=== PATIENT | male | born 1970 | race Caucasian/White ===

== ENCOUNTER 2017-03-19 23:54 | Inpatient (IN) | payer OTHER ==
--- NOTE | 2017-03-20 00:21 | C.PDOC ---
History Of Present Illness 46 y/o M c no PMHx p/w subjective fever, palpitations, cough x 2 days. Went to clinic today and started on Tamiflu and augmentin but states palpitations continued. Took no acetaminophen or ibuprofen today. Currently feels palpitations are much improved, still feels subjectively febrile. Denies sputum production, dyspnea, abdominal pain, diarrhea, dysuria. Time Seen by Provider: 03/20/17 00:17 Chief Complaint (Nursing): Palpitations History Per: Patient History/Exam Limitations: no limitations Onset/Duration Of Symptoms: Days (2) Current Symptoms Are (Timing): Still Present Severity: Mild Recent travel outside of the [place]: No Additional History Per: Patient Past Medical History Reviewed: Historical Data, Nursing Documentation, Vital Signs Vital Signs: Last Vital Signs Temp 101.9 F H 03/20/17 01:24 Pulse 96 H 03/20/17 01:24 Resp 20 03/20/17 01:24 BP 105/58 L 03/20/17 01:24 Pulse Ox 98 03/20/17 01:24 Family History: States: Unknown Family Hx - Social History Hx Tobacco Use: No Hx Alcohol Use: No Hx Substance Use: No - Immunization History Hx Tetanus Toxoid Vaccination: No Hx Influenza Vaccination: No Hx Pneumococcal Vaccination: No Review Of Systems Except As Marked, All Systems Reviewed And Found Negative. Constitutional: Positive for: Fever (Subjective) Cardiovascular: Positive for: Palpitations. Negative for: Chest Pain Respiratory: Positive for: Cough. Negative for: Shortness of Breath Physical Exam - Physical Exam Additional Physical Exam Comments: Constitutional: No acute distress. Appears anxious. Head: Normocephalic. Atraumatic. Eyes: PERRL. ENT: Moist mucous membranes. Neck: Supple. Cardiovascular: Mild tachycardia. Radial pulse 2+ bilaterally. Chest: No tenderness. Respiratory: Clear to auscultation bilaterally. GI: Soft. Nontender. Nondistended. Back: No CVA tenderness. Musculoskeletal: No tenderness or swelling of extremities. Skin: No rash. Neurologic: Alert, no focal deficit. ED Course And Treatment - Laboratory Results Result Diagrams: 03/20/17 00:43 03/20/17 00:43 ECG: Interpreted By Me, Viewed By Me ECG Rhythm: Sinus Rhythm (108) ECG Interpretation: Normal Interpretation Of ECG: No ST/T wave changes O2 Sat by Pulse Oximetry: 99 (RA) Pulse Ox Interpretation: Normal Medical Decision Making Medical Decision Making: Impression: 46 y/o male c/o subjective fever, palpitations, cough x 2 days. Plans: * EKG * Blood work up * CXR * Tylenol * Toradol * UA EKG NSR 108 bpm, no ST/T wave changes. CXR shows L lobe infiltrate. Started on Cefepime. IVF administered. Vital signs improved with treatment. Accepted for admission by hospitalist service. Disposition Discussed With Dr.: Vinicio Vallejo Doctor Will See Patient In The: ED - Disposition Referrals: Mercedes Heller APN [Primary Care Provider] - Disposition: HOSPITALIZED Disposition Time: 02:27 Condition: GUARDED Forms: [employer] ([place]) - POA Core Measure Indicators: Code Sepsis, Pneumonia - Clinical Impression Clinical Impression: Pneumonia, Sepsis - Scribe Statement The provider has reviewed the documentation as recorded by the Scribe Arvind daniels All medical record entries made by the Scribe were at my direction and personally dictated by me. I have reviewed the chart and agree that the record accurately reflects my personal performance of the history, physical exam, medical decision making, and the department course for this patient. I have also personally directed, reviewed, and agree with the discharge instructions and disposition.
[2017-03-20] MEDS ORDERED: Sodium Chloride 0.9% 1,000 ML IV STA (00:30)
[2017-03-20 00:43] LABS: VENOUS BLOOD GAS BASE EXCESS 2.8 mmol/L (0.0-2.0); VENOUS BLOOD GAS PCO2 47 mmHg (40-60); VENOUS BLOOD PH 7.39 (7.32-7.43)
[2017-03-20] MEDS ORDERED: Moxifloxacin IV 400mg/250ml NS 400 MG/250 ML BAG IVPB ONE (00:50)
[2017-03-20 00:52] LABS: BASO # 0.1 K/uL (0.0-0.2); BASO % 0.6 % (0.0-2.0); EOS % 0.1 % (0.0-4.0); HEMATOCRIT 40.5 % (35.0-51.0); LYMPH # 0.7 K/uL (1.0-4.3); LYMPH % 7.3 % (20.0-40.0); MEAN CELL VOLUME 84.6 fL (80.0-94.0); MEAN CORPUSCULAR HEMOGLOBIN 28.9 pg (27.0-31.0); MEAN CORPUSCULAR HGB CONC 34.1 g/dL (33.0-37.0); MEAN PLATELET VOLUME 9.1 fL (7.2-11.7); MONO # 0.9 K/uL (0.0-0.8); MONO % 9.3 % (0.0-10.0); NRBC % 0.2 % (0.0-2.0); PLATELET COUNT 205 K/uL (130-400); RED CELL DISTRIBUTION WIDTH 13.7 % (11.5-14.5); WHITE BLOOD COUNT 10.1 K/uL (4.8-10.8)
[2017-03-20 00:53] LABS: RBC URINE 4 /hpf (0-3); URINE BILIRUBIN NEGATIVE (NEGATIVE); URINE BLOOD NEGATIVE (NEGATIVE); URINE COLOR Amber (YELLOW); URINE GLUCOSE (UA) NORMAL (Normal); URINE KETONE NEGATIVE (NEGATIVE); URINE LEUKOCYTE ESTERASE NEG Leu/uL (Negative); URINE PROTEIN 2+ mg/dL (NEGATIVE); WBC URINE 1 /hpf (0-5)
[2017-03-20] MEDS ORDERED: Cefepime IV 2 gm in Dextrose 2 GM/100 ML BAG IVPB SCH (01:00)
[2017-03-20] MEDS ORDERED: Sodium Chloride 0.9% 3,000 ML ONE (01:01)
[2017-03-20 01:11] LABS: CHLORIDE 98 mmol/L (98-107)
[2017-03-20 01:12] LABS: POTASSIUM 4.1 mmol/L (3.6-5.2); SODIUM 139 mmol/L (132-148)
[2017-03-20 01:14] LABS: AST/SGOT 44 U/L (17-59); BILIRUBIN,TOTAL 1.2 mg/dL (0.2-1.3); CARBON DIOXIDE 26 mmol/L (22-30); GFR AFRICAN-AMERICAN > 60; TOTAL PROTEIN 7.7 g/dL (6.3-8.3)
[2017-03-20 01:15] LABS: ALKALINE PHOSPHATASE 148 U/L (38-126); ALT/SGPT 74 U/L (21-72); BLOOD UREA NITROGEN 9 mg/dL (9-20); CALCIUM 9.1 mg/dl (8.6-10.4); GLUCOSE,RANDOM 127 mg/dL (75-110)
[2017-03-20 01:52] LABS: NEUTROPHIL 87 % (50-75); REACTIVE LYMPHOCYTES 1 % (0-0); TOTAL CELLS COUNTED 100
[2017-03-20] MEDS ORDERED: Cefepime IV 2 gm in Dextrose 2 GM/100 ML BAG IVPB ONE (02:15)
[2017-03-20 03:04] LABS: VENOUS BLOOD GAS BASE EXCESS -4.1 mmol/L (0.0-2.0); VENOUS BLOOD GAS PCO2 33 mmHg (40-60); VENOUS BLOOD PH 7.39 (7.32-7.43)
[2017-03-20] MEDS ORDERED: Azithromycin 500 MG in Sodium Chloride 0.9% 250 ML IVPB SCH (04:30)
[2017-03-20] MEDS: Albuterol-Ipratrop 3 mg / 0.5 (3 ml) UD INH SCH ×3 (07:40→20:05)
--- NOTE | 2017-03-20 09:38 | CP.PCM.PN ---
<Lisa Shipman - Last Filed: 03/20/17 16:23> Subjective - Date & Time of Evaluation Date of Evaluation: 03/20/17 Time of Evaluation: 09:38 - Subjective Subjective: Pt seen and examined at bedside. Pt c/o fevers, non productive cough, improving palpitations, headache exacerbated by cough, and RUQ pain. Patient says he has had an US for RUQ pain in the past and has had US but does not know the results. Pt says this pain is exacerbated by greasy foods. Pt denies n/v/d/c/ chills/diaphoresis. Objective - Vital Signs/Intake and Output Vital Signs (last 24 hours): Temp Pulse Resp BP Pulse Ox 98.7 F 71 17 120/74 99 03/20/17 07:20 03/20/17 07:20 03/20/17 07:20 03/20/17 07:20 03/20/17 07:20 Intake and Output: 03/20/17 03/20/17 06:59 18:59 Intake Total 750 Balance 750 - Medications Medications: Current Medications Acetaminophen (Tylenol 325mg Tab) 650 mg PO Q6 PRN PRN Reason: Fever >100.4 F Albuterol/Ipratropium (Duoneb 3 Mg/0.5 Mg (3 Ml) Ud) [address] Enoxaparin Sodium (Lovenox) 30 mg SC DAILY [facility] Famotidine (Pepcid) 20 mg PO BID [facility] Azithromycin 500 mg/ Sodium (Chloride) 250 mls @ 167 mls/hr IVPB Q24H AVE Last Admin: 03/20/17 05:03 Dose: 167 mls/hr Ceftriaxone Sodium 1 gm/ (Sodium Chloride) 100 mls @ 100 mls/hr IVPB DAILY [facility] Pneumococcal Polyvalent Vaccine (Pneumovax 23 Vaccine) 0.5 ml IM .ONCE ONE Stop: 03/23/17 10:01 Saccharomyces Boulardii (Florastor) 250 mg PO BID [facility] - Constitutional Appears: Non-toxic, No Acute Distress - Head Exam Head Exam: NORMAL INSPECTION - Eye Exam Eye Exam: EOMI - ENT Exam ENT Exam: Mucous Membranes Moist - Respiratory Exam Respiratory Exam: NORMAL BREATHING PATTERN. absent: Accessory Muscle Use, Respiratory Distress Additional comments: course breath sounds heard louder on the left lower lung chambers - Cardiovascular Exam Cardiovascular Exam: REGULAR RHYTHM, +S1, +S2 - GI/Abdominal Exam GI & Abdominal Exam: Distended, Guarding (voluntary ), Soft, Tenderness (RUQ), Normal Bowel Sounds Additional comments: Positive bourgeois sign - Extremities Exam Extremities Exam: Normal Inspection - Neurological Exam Neurological Exam: Alert, Awake - Psychiatric Exam Psychiatric exam: Normal Affect, Normal Mood - Skin Skin Exam: Dry, Intact, Warm Assessment and Plan - Assessment and Plan (Free Text) Assessment: Pneumonia * Febrile, Tmax: 105.3 (03/20) * Lactate 2.2, repeat lactate: 0.7 (03/20) * Leukocytosis absent (WBC: 8.6 on 03/20) * Procalcitonin: 0.23 * Medication: * Tylenol 650mg PO Q6H PRN * Duonebs Q6 PRN * Discontinued Azithromycin 500mg IV 24H and Rocephin 1gm IV daily on (03/20) * Zosyn 3.375 g IVPB Q6H * Flagyl 500 mg/100 ml IVPB Q8H * CXR: left upper lobe pneumonia (03/20) * F/U CT chest, abdomen, and pelvis * F/U ID consult (Dr. Thomas) - recs appreciated RUQ pain * Zosyn and flagyl as described above * NPO * F/U Surgery Consult (Dr. Castaneda) - recs appreciated * RUQ US: fatty liver infiltration, no gallstones, negative sonographic bourgeois sign Sepsis * Resolving * Possibly secondary to pneumonia * Febrile, Tmax: Febrile, Tmax: 105.3 * HR: 110, Max: 112 * Lactate 2.2, repeat lactate: 0.7 * NS @ 100mls/hr * F/U Blood, throat, and urine culture Prophylactic measure * SCDS * Lovenox 30mg SC daily * Pepcid 20mg PO BID * Florastor 250mg PO BID <Kandy Gonzalez V - Last Filed: 03/21/17 05:03> Objective - Vital Signs/Intake and Output Vital Signs (last 24 hours): Temp Pulse Resp BP Pulse Ox 99.2 F 85 20 106/69 97 03/21/17 04:05 03/21/17 04:05 03/21/17 04:05 03/21/17 04:05 03/21/17 04:05 Intake and Output: 03/20/17 03/21/17 18:59 06:59 Intake Total 1400 800 Output Total 800 Balance 600 800 - Medications Medications: Current Medications Acetaminophen (Tylenol 325mg Tab) 650 mg PO Q6 PRN PRN Reason: Fever >100.4 F Last Admin: 03/21/17 02:40 Dose: 650 mg Albuterol/Ipratropium (Duoneb 3 Mg/0.5 Mg (3 Ml) Ud) 3 ml INH RQ6 [facility] Last Admin: 03/21/17 01:02 Dose: Not Given Enoxaparin Sodium (Lovenox) 30 mg SC DAILY [facility] Last Admin: 03/20/17 10:08 Dose: 30 mg Famotidine (Pepcid) 20 mg PO BID [facility] Last Admin: 03/20/17 18:06 Dose: 20 mg Sodium Chloride (Sodium Chloride 0.9%) 1,000 mls @ 100 mls/hr IV .Q10H [facility] Last Admin: 03/20/17 21:06 Dose: 100 mls/hr Piperacillin Sod/Tazobactam (Sod 3.375 gm/ Sodium Chloride) 100 mls @ 200 mls/ hr IVPB Q6H [facility] Last Admin: 03/21/17 02:42 Dose: 200 mls/hr Metronidazole (Flagyl) 500 mg in 100 mls @ 100 mls/hr IVPB Q8H [facility] Last Admin: 03/20/17 21:47 Dose: 100 mls/hr Pneumococcal Polyvalent Vaccine (Pneumovax 23 Vaccine) 0.5 ml IM .ONCE ONE Stop: 03/23/17 10:01 Saccharomyces Boulardii (Florastor) 250 mg PO BID [facility] Last Admin: 03/20/17 18:06 Dose: 250 mg - Labs Labs: 03/20/17 13:51 03/20/17 13:51 PT 13.6 SECONDS (9.7-12.2) H 03/20/17 15:16 INR 1.2 03/20/17 15:16 APTT 33 SECONDS (21-34) 03/20/17 15:16 Attending/Attestation - Attestation I have personally seen and examined this patient.: Yes I have fully participated in the care of the patient.: Yes I have reviewed all pertinent clinical information, including history, physical exam and plan: Yes Notes (Text): This is late computer entry for 8/30/17. Patient seen, examined and case discussed with day-time resident. Patient seen during morning rounds. Patient reporting fever, chills, and right upper quadrant pain travelling to back of shoulder. Patient also reporting cough. Patient prior to admission had completed abdominal US but does not know the results and reports he has a follow-up appointment with a doctor for this upcoming Saturday. General: awake, alert, in acute distress Heart: s1, S2, tachycardia Lungs: + decreased breathe sounds Abdomen: soft nondistended + Bourgeois's sign, tender over right upper quadrant, no rigidity but guarding Extremities: no cyanosis, no clubbing, no edema Assessment/Plan 1) Sepsis * Criteria: Febrile Tmax: 105.3, tachycardia, source: pneumonia and/or possible cholecystitis given positive Bourgeois sign; Lactate acid: 2.2-->0.7 * NS @ 100mls/hr * F/U Blood, throat, and urine cultures * D/C Rocephin and Azithromycin-->started Zosyn and Flagyl * Infectious Disease (Dr. Thomas) on consult * General surgery (Dr. Castaneda) on consult: reason: RUQ pain; positive Bourgeois's sign * Patient ordered for Abdominal US; and CT Chest/Abdomen/Pelvis * RUQ US (03/20/17): fatty liver infiltration, no gallstones, negative sonographic bourgeois sign * CT Chest/Abdomen/Pelvis: extensive left upper lobe consolidation. Recommend follow-up to complete resolution, small left greater than right pleural effusions. Hypoattenuation of the liver compatible with hepatic steatosis. Moderate constipation, small bowel wall thickening may be related to enteritis. Numerous calcified right hilar lymph nodes. Subcarinal soft tissue measuring 4.3 X3.1cm, presumably adenopathy 2) Pneumonia * Criteria: Febrile Tmax: 105.3, tachycardia, source: pneumonia and/or possible cholecystitis given positive Bourgeois sign; Lactate acid: 2.2-->0.7 * NS @ 100mls/hr * Procalcitonin: 0.23 * IV Abx: Zosyn 3.375 g IVPB Q6H (active since 03/20/17) and Flagyl 500mg IV Q 8 hours (03/20/17) * CXR: left upper lobe pneumonia (03/20) * F/U ID consult (Dr. Thomas) - recs appreciated * Patient ordered for CT Chest to characterize * CT Chest/Abdomen/Pelvis: extensive left upper lobe consolidation. Recommend follow-up to complete resolution, small left greater than right pleural effusions. Hypoattenuation of the liver compatible with hepatic steatosis. Moderate constipation, small bowel wall thickening may be related to enteritis. Numerous calcified right hilar lymph nodes. Subcarinal soft tissue measuring 4.3 X3.1cm, presumably adenopathy * Will order for urine Legionella, mycoplasma Igm, Strep pneumoniae 3) RUQ pain * On my exam, patient has positive Bourgeois's sign-->ordered for abdominal US/CT Chest/Abdomen/Pelvis and general surgery consult given +bourgeois's sign * NPO * F/U Surgery Consult (Dr. Castaneda) - recs appreciated * RUQ US: fatty liver infiltration, no gallstones, negative sonographic bourgeois sign 4) Prophylactic measure * SCDS * Lovenox 30mg SC daily * Pepcid 20mg PO BID * Florastor 250mg PO BID
--- NOTE | 2017-03-20 10:04 | CP.PCM.HP ---
Addendum entered and electronically signed by Kristin Ennis 03/21/17 06:46: Missing information from initial HPI: PMHx: Denies PSHx: Back lipoma excision FHx: Denies Medication: None Allergies: NKDA Social history: Lives with friends. Denies tobacco, ETOH and illicit drug use. Original Note: <ChandlerMariikenny Sanchez - Last Filed: 03/20/17 10:31> History of Present Illness - History of Present Illness History of Present Illness: CC: Myalgia, fever and Palpitation HPI: Patient is a 46 year old male with no past medical history who presents to the ED with complaints of myalgia, subject fever, non-productive cough, palpitations, B/L eye lid pain and neck pain that started on Saturday. Patient states that he went to the clinic and was given Tamiflu and Augumentin, however , patient's symptoms continued with worsening palpitation symptoms. Patient admits to fever, chills, diaphoresis, improving palpitation (currently), frontal headache, nasal congestion, dizziness, nausea and vomiting (x2) but denies chest pain, SOB, abdominal pain, diarrhea and sick contact. Present on Admission - Present on Admission Any Indicators Present on Admission: No Review of Systems - Constitutional Constitutional: Chills, Excessive Sweating, Fever, Headache, Malaise, Night Sweats, Weakness - EENT Eyes: absent: Change in Vision Ears: Dizziness Nose/Mouth/Throat: Nasal Congestion - Cardiovascular Cardiovascular: Diaphoresis, Palpitations. absent: Chest Pain, Chest Pain at Rest, Chest Pain with Activity, Dyspnea, Dyspnea on Exertion, Leg Edema - Respiratory Respiratory: Cough, Chest Congestion. absent: Dyspnea - Gastrointestinal Gastrointestinal: Nausea, Vomiting. absent: Abdominal Pain, Change in Bowel Habits, Constipation, Diarrhea - Genitourinary Genitourinary: absent: Dysuria, Pyuria, Urinary Frequency - Musculoskeletal Musculoskeletal: Arthralgias, Myalgias. absent: Numbness, Tingling - Neurological Neurological: Dizziness, Headaches. absent: Confusion, Focal Weakness, Tingling , Weakness - Endocrine Endocrine: Excessive Sweating, Palpitations. absent: Fatigue, Flushing Past Patient History - Infectious Disease Hx of Infectious Diseases: None - Past Medical History & Family History Past Medical History?: No - Past Social History Smoking Status: Never Smoked - MUSCULOSKELETAL/RHEUMATOLOGICAL Hx Falls: No - PSYCHIATRIC Hx Substance Use: No - SURGICAL HISTORY Hx Surgeries: No - ANESTHESIA Hx Anesthesia: No Meds Allergies/Adverse Reactions: Allergies Allergy/AdvReac Type Severity Reaction Status Date / Time No Known Allergies Allergy Verified 03/19/17 23:57 Physical Exam - Constitutional Appears: No Acute Distress - Head Exam Head Exam: ATRAUMATIC, NORMAL INSPECTION - Eye Exam Eye Exam: EOMI, Normal appearance - Respiratory Exam Respiratory Exam: Clear to Auscultation Bilateral, NORMAL BREATHING PATTERN - Cardiovascular Exam Cardiovascular Exam: REGULAR RHYTHM, +S2 - GI/Abdominal Exam GI & Abdominal Exam: Normal Bowel Sounds, Soft - Extremities Exam Extremities exam: Positive for: normal inspection. Negative for: calf tenderness, pedal edema, tenderness - Neurological Exam Neurological exam: Alert, Oriented x3 - Psychiatric Exam Psychiatric exam: Normal Affect, Normal Mood - Skin Skin Exam: Dry, Normal Color, Warm Results - Vital Signs Recent Vital Signs: Last Vital Signs Temp 98.7 F 03/20/17 07:20 Pulse 71 03/20/17 07:20 Resp 17 03/20/17 07:20 BP 120/74 03/20/17 07:20 Pulse Ox 99 03/20/17 07:20 - Labs Result Diagrams: 03/20/17 00:43 03/20/17 00:43 Labs: Laboratory Results - last 24 hr 03/20/17 03/20/17 03:00 08:48 pO2 50 VBG pH 7.39 VBG pCO2 33 L VBG HCO3 21.4 VBG Total CO2 21.0 L VBG O2 Sat (Calc) 91.6 H VBG Base Excess -4.1 L VBG Potassium 3.4 L Sodium 138.0 Chloride 110.0 H Glucose 116 H Lactate 0.7 Venous Blood Potassium 3.4 L Ur L.pneumophila Ag Negative Assessment & Plan (1) Pneumonia Assessment and Plan: Febrile, Tmax: 105.3 Lactate 2.2, repeat lactate: 0.7 Leukocytosis absent F/U procalcitonin Medication: - Tylenol 650mg PO Q6H PRN - Azithromycin 500mg IV 24H - Rocephin 1gm IV daily - Duonebs Q6 PRN Imaging: - Awaiting official chest x-ray report Status: Acute (5) Sepsis Assessment and Plan: Resolving Possibly secondary to pneumonia Febrile, Tmax: Febrile, Tmax: 105.3 HR: 110, Max: 112 Lactate 2.2, repeat lactate: 0.7 Medications: - Azithromycin 500mg IV 24H - Rocephin 1gm IV daily -NS @ 100mls/hr Status: Acute (6) Prophylactic measure Assessment and Plan: SCDS Lovenox 30mg SC daily Pepcid 20mg PO BID Florastor 250mg PO BID Status: Acute <Vinicio Vallejo P - Last Filed: 03/30/17 19:33> Results - Vital Signs Recent Vital Signs: Last Vital Signs Temp 98.1 F 03/30/17 07:33 Pulse 69 03/30/17 08:24 Resp 20 03/30/17 07:33 BP 104/64 03/30/17 07:33 Pulse Ox 99 03/30/17 07:33 - Labs Result Diagrams: 03/30/17 06:18 03/30/17 06:18 Labs: Laboratory Results - last 24 hr 03/30/17 03/30/17 06:18 06:18 WBC 11.0 H RBC 4.09 L Hgb 11.9 L Hct 34.8 L MCV 85.2 MCH 29.1 MCHC 34.1 RDW 13.8 Plt Count 526 H MPV 8.0 Neut % (Auto) 68.5 Lymph % (Auto) 16.4 L [place] % (Auto) 11.1 H Eos % (Auto) 2.8 Baso % (Auto) 1.2 Neut # 7.5 H Lymph # 1.8 [place] # 1.2 H Eos # 0.3 Baso # 0.1 Sodium 139 Potassium 4.1 Chloride 100 Carbon Dioxide 26 Anion Gap 18 BUN 9 Creatinine 0.7 L Est GFR ( Amer) > 60 Est GFR (Non-Af Amer) > 60 Random Glucose 98 Calcium 9.1 Total Bilirubin 0.7 AST 27 ALT 60 Alkaline Phosphatase 120 Total Protein 7.1 Albumin 3.2 L Globulin 3.9 Albumin/Globulin Ratio 0.8 L Attending/Attestation - Attestation I have personally seen and examined this patient.: Yes I have fully participated in the care of the patient.: Yes I have reviewed all pertinent clinical information: Yes
[2017-03-20] MEDS: Enoxaparin 30 mg Syringe SC SCH (10:08)
[2017-03-20] MEDS: Saccharomyces Boulardi 250 mg Cap PO SCH ×2 (10:09→18:06)
[2017-03-20] MEDS: Sodium Chloride 0.9% 1,000 ML IV SCH ×2 (10:54→21:06)
--- NOTE | 2017-03-20 11:25 | RAD ---
HISTORY: fever, palpitations COMPARISON: No prior. TECHNIQUE: Chest PA and lateral FINDINGS: LUNGS: There is ill-defined airspace disease in the left upper lobe. No focal consolidation in the right lung. There is bibasilar atelectasis. PLEURA: No significant pleural effusion identified. No pneumothorax apparent. CARDIOVASCULAR: Normal. OSSEOUS STRUCTURES: No significant abnormalities. VISUALIZED UPPER ABDOMEN: Normal. OTHER FINDINGS: None. IMPRESSION: Left upper lobe pneumonia. Follow-up after medical management is advised to ensure complete resolution.
--- NOTE | 2017-03-20 13:50 | CP.PCM.CON ---
History of Present Illness - History of Present Illness History of Present Illness: CONSULT SURGERY NOTE FOR DR. IVERSON 46M presents with fevers and chills that started on Saturday. Patient states he as also been having abdominal pain that has been on and off for years in the right upper quadrant. He states the pain usually comes after eating. He denies nausea, vomiting or change in bowel movement. PMH: Asthma PSH: lipoma removal Social: denies tobacco, alcohol, illicit drugs Allergies: NKDA Past Patient History - Infectious Disease Hx of Infectious Diseases: None - Past Medical History & Family History Past Medical History?: No - Past Social History Smoking Status: Never Smoked - MUSCULOSKELETAL/RHEUMATOLOGICAL Hx Falls: No - PSYCHIATRIC Hx Substance Use: No - SURGICAL HISTORY Hx Surgeries: No - ANESTHESIA Hx Anesthesia: No Meds Allergies/Adverse Reactions: Allergies Allergy/AdvReac Type Severity Reaction Status Date / Time No Known Allergies Allergy Verified 03/19/17 23:57 - Medications Medications: Current Medications Acetaminophen (Tylenol 325mg Tab) 650 mg PO Q6 PRN PRN Reason: Fever >100.4 F Last Admin: 03/20/17 12:11 Dose: 650 mg Albuterol/Ipratropium (Duoneb 3 Mg/0.5 Mg (3 Ml) Ud) [address] Last Admin: 03/20/17 13:30 Dose: 3 ml Enoxaparin Sodium (Lovenox) 30 mg SC DAILY [facility] Last Admin: 03/20/17 10:08 Dose: 30 mg Famotidine (Pepcid) [address] Last Admin: 03/20/17 10:08 Dose: 20 mg Sodium Chloride (Sodium Chloride 0.9%) 1,000 mls @ 100 mls/hr IV .Q10H [facility] Last Admin: 03/20/17 10:54 Dose: 100 mls/hr Piperacillin Sod/Tazobactam (Sod 3.375 gm/ Sodium Chloride) 100 mls @ 200 mls/ hr IVPB Q6H AVE Metronidazole (Flagyl) 500 mg in 100 mls @ 100 mls/hr IVPB Q8H [facility] Iohexol (Omnipaque 240 (50 Ml)) 50 ml PO ONCE ONE Stop: 03/20/17 14:01 Pneumococcal Polyvalent Vaccine (Pneumovax 23 Vaccine) 0.5 ml IM .ONCE ONE Stop: 03/23/17 10:01 Saccharomyces Caryli (Florastor) [address] Last Admin: 03/20/17 10:09 Dose: 250 mg Physical Exam - Constitutional Appears: Non-toxic, No Acute Distress Additional comments: Uncomfortable 2/2 pain - Head Exam Head Exam: ATRAUMATIC - ENT Exam ENT Exam: Mucous Membranes Moist - Respiratory Exam Respiratory Exam: Clear to Auscultation Bilateral, NORMAL BREATHING PATTERN - Cardiovascular Exam Cardiovascular Exam: REGULAR RHYTHM, +S1, +S2 - GI/Abdominal Exam GI & Abdominal Exam: Soft, Tenderness (RUQ moderate pain). absent: Distended, Firm, Guarding, Rebound, Rigid Additional comments: positive goel's sign - Extremities Exam Extremities exam: Negative for: pedal edema, tenderness - Neurological Exam Neurological exam: Alert, Oriented x3 - Psychiatric Exam Psychiatric exam: Anxious - Skin Skin Exam: Dry, Intact, Normal Color, Warm Results - Vital Signs Recent Vital Signs: Last Vital Signs Temp 102.8 F H 03/20/17 12:12 Pulse 80 03/20/17 13:33 Resp 17 03/20/17 07:20 BP 127/73 03/20/17 12:12 Pulse Ox 99 03/20/17 07:20 - Labs Result Diagrams: 03/20/17 00:43 03/20/17 00:43 Labs: Laboratory Results - last 24 hr 03/20/17 03/20/17 03/20/17 03:00 07:52 08:48 pO2 50 VBG pH 7.39 VBG pCO2 33 L VBG HCO3 21.4 VBG Total CO2 21.0 L VBG O2 Sat (Calc) 91.6 H VBG Base Excess -4.1 L VBG Potassium 3.4 L Sodium 138.0 Chloride 110.0 H Glucose 116 H Lactate 0.7 Procalcitonin 0.23 Venous Blood Potassium 3.4 L Ur L.pneumophila Ag Negative Assessment & Plan - Assessment and Plan (Free Text) Assessment: 46M with RUQ tenderness and positive murphys sign, with fevers 102 Plan: - NPO, pain control - Abx, IVF - STAT Ultrasound/CT - Reevaluate for OR Further recs discuss with Dr. Leonel Garcia, PGY2
[2017-03-20] MEDS ORDERED: Iohexol 240 (50 ml) PO ONE (14:00)
[2017-03-20 14:03] LABS: BASO # 0.1 K/uL (0.0-0.2); BASO % 0.9 % (0.0-2.0); EOS % 0.1 % (0.0-4.0); HEMATOCRIT 37.1 % (35.0-51.0); LYMPH # 0.9 K/uL (1.0-4.3); LYMPH % 10.6 % (20.0-40.0); MEAN CELL VOLUME 85.3 fL (80.0-94.0); MEAN CORPUSCULAR HEMOGLOBIN 28.6 pg (27.0-31.0); MEAN CORPUSCULAR HGB CONC 33.6 g/dL (33.0-37.0); MEAN PLATELET VOLUME 9.2 fL (7.2-11.7); MONO # 0.9 K/uL (0.0-0.8); MONO % 9.9 % (0.0-10.0); RED CELL DISTRIBUTION WIDTH 13.5 % (11.5-14.5); WHITE BLOOD COUNT 8.6 K/uL (4.8-10.8)
[2017-03-20 14:06] LABS: CHLORIDE 106 mmol/L (98-107); POTASSIUM 3.8 mmol/L (3.6-5.2); SODIUM 139 mmol/L (132-148)
[2017-03-20 14:08] LABS: ALB/GLOB RATIO 0.9 (1.0-2.1); ALKALINE PHOSPHATASE 110 U/L (38-126); AST/SGOT 40 U/L (17-59); BILIRUBIN,TOTAL 0.6 mg/dL (0.2-1.3); CARBON DIOXIDE 21 mmol/L (22-30); GFR AFRICAN-AMERICAN > 60; TOTAL PROTEIN 6.4 g/dL (6.3-8.3)
[2017-03-20 14:09] LABS: ALT/SGPT 64 U/L (21-72); BLOOD UREA NITROGEN 9 mg/dL (9-20); GLUCOSE,RANDOM 115 mg/dL (75-110)
[2017-03-20] MEDS: Piperacillin/Tazobact 3.375 GM in Sodium Chloride 100 ML IVPB SCH ×2 (14:24→20:00)
[2017-03-20] MEDS: metroNIDAZOLE IV 500 mg/100 ml 500 MG/100 ML BAG IVPB SCH ×2 (14:29→21:47)
--- NOTE | 2017-03-20 14:30 | US ---
HISTORY: RUQ pain, Pos bourgeois sign COMPARISON: None. TECHNIQUE: Sonographic evaluation of the abdomen. FINDINGS: LIVER: Measures 14.0 cm. Diffusely increased echogenicity of the liver parenchyma. Consistent with fatty infiltration. Smooth contour. No mass. No biliary dilatation. GALLBLADDER: Unremarkable. No gallstones. No mural thickening. No pericholecystic fluid. Negative sonographic Bourgeois sign. COMMON BILE DUCT: Measures 4 mm. No stones. No dilatation. PANCREAS: Unremarkable as visualized. No mass. No ductal dilatation. RIGHT KIDNEY: Measures 12.2cm. Normal echogenicity. No calculus, mass, or hydronephrosis. LEFT KIDNEY: Measures 10.2cm. Normal echogenicity. No calculus, mass, or hydronephrosis. SPLEEN: Normal in size and contour. No mass. AORTA: No aneurysmal dilatation. IVC: Unremarkable. OTHER FINDINGS: None. IMPRESSION: No evidence of cholelithiasis or cholecystitis. Fatty infiltration of the liver.
[2017-03-20] MEDS ORDERED: Iodixanol 320 MG/ML 100 ML BOTTLE IV ONE ×2 (15:16→17:17)
[2017-03-20 15:39] LABS: INR 1.2
--- NOTE | 2017-03-20 18:10 | CP.PCM.CON ---
History of Present Illness - History of Present Illness History of Present Illness: 46M presents with fevers and chills that started on Saturday. Patient states he as also been having abdominal pain that has been on and off for years in the right upper quadrant. + infiltrates on cxr + high grade fever + abd pain RUQ cultures pending PMH: Asthma PSH: lipoma removal Social: denies tobacco, alcohol, illicit drugs Allergies: NKDA Review of Systems - Constitutional Constitutional: As Per HPI - EENT Eyes: absent: As Per HPI, Blind Spots, Blurred Vision, Change in Vision, Decreased Night Vision, Diplopia, Discharge, Dry Eye, Exophthalmos, Floaters, Irritation, Itchy Eyes, Loss of Peripheral Vision, Pain, Photophobia, Requires Corrective Lenses, Sees Flashes, Spots in Vision, Tunnel Vision, Other Visual Disturbances, Loss of Vision, Other Ears: absent: As Per HPI, Decreased Hearing, Ear Discharge, Ear Pain, Tinnitus, Abnormal Hearing, Disequilibrium, Dizziness, Other Nose/Mouth/Throat: absent: As Per HPI, Epistaxis, Nasal Congestion, Nasal Discharge, Nasal Obstruction, Nasal Trauma, Nose Pain, Post Nasal Drip, Sinus Pain, Sinus Pressure, Bleeding Gums, Change in Voice, Dental Pain, Dry Mouth, Dysphagia, Halitosis, Hoarsness, Lip Swelling, Mouth Lesions, Mouth Pain, Odynophagia, Sore Throat, Throat Swelling, Tongue Swelling, Facial Pain, Neck Pain, Neck Mass, Other - Cardiovascular Cardiovascular: absent: As Per HPI, Acrocyanosis, Chest Pain, Chest Pain at Rest , Chest Pain with Activity, Claudication, Diaphoresis, Dyspnea, Dyspnea on Exertion, Edema, Irregular Heart Rhythm, Pain Radiating to Arm/Neck/Jaw, Leg Edema, Leg Ulcers, Lightheadedness, Orthopnea, Palpitations, Paroxysmal Nocturnal Dyspnea, Pedal Edema, Radiating Pain, Rapid Heart Rate, Slow Heart Rate, Syncope, Other - Respiratory Respiratory: absent: As Per HPI, Cough, Dyspnea, Hemoptysis, Dyspnea on Exertion , Wheezing, Snoring, Stridor, Pain on Inspiration, Chest Congestion, Excessive Mucous Production, Change in Mucous Color, Pain with Coughing, Other - Gastrointestinal Gastrointestinal: As Per HPI - Musculoskeletal Musculoskeletal: absent: As Per HPI, Abnormal Gait, Arthralgias, Atrophy, Back Pain, Deformity, Joint Swelling, Limited Range of Motion, Loss of Height, Muscle Cramps, Muscle Weakness, Myalgias, Neck Pain, Numbness, Radiating Pain into Limb, Stiffness, Tingling, Other - Integumentary Integumentary: absent: As Per HPI, Acne, Alopecia, Bleeding Lesions, Change in Hair, Change in Nails, Change in Pigmentation, Changing Lesions, Dry Skin, Erythema, Furuncle, Hirsutism, Lesions, New Lesions, Non-Healing Lesions, Photosensitivity, Pruritus, Rash, Skin Pain, Skin Ulcer, Sores, Striae, Swelling , Unusual Bruising, Wounds, Jaundice, Other Past Patient History - Infectious Disease Hx of Infectious Diseases: None - Past Medical History & Family History Past Medical History?: No - Past Social History Smoking Status: Never Smoked - MUSCULOSKELETAL/RHEUMATOLOGICAL Hx Falls: No - PSYCHIATRIC Hx Substance Use: No - SURGICAL HISTORY Hx Surgeries: No - ANESTHESIA Hx Anesthesia: No Meds Allergies/Adverse Reactions: Allergies Allergy/AdvReac Type Severity Reaction Status Date / Time No Known Allergies Allergy Verified 03/19/17 23:57 - Medications Medications: Current Medications Acetaminophen (Tylenol 325mg Tab) 650 mg PO Q6 PRN PRN Reason: Fever >100.4 F Last Admin: 03/20/17 18:07 Dose: 650 mg Albuterol/Ipratropium (Duoneb 3 Mg/0.5 Mg (3 Ml) Ud) 3 ml INH RQ6 [facility] Last Admin: 03/20/17 13:30 Dose: 3 ml Enoxaparin Sodium (Lovenox) 30 mg SC DAILY [facility] Last Admin: 03/20/17 10:08 Dose: 30 mg Famotidine (Pepcid) 20 mg PO BID [facility] Last Admin: 03/20/17 18:06 Dose: 20 mg Sodium Chloride (Sodium Chloride 0.9%) 1,000 mls @ 100 mls/hr IV .Q10H [facility] Last Admin: 03/20/17 10:54 Dose: 100 mls/hr Piperacillin Sod/Tazobactam (Sod 3.375 gm/ Sodium Chloride) 100 mls @ 200 mls/ hr IVPB Q6H [facility] Last Admin: 03/20/17 14:24 Dose: 200 mls/hr Metronidazole (Flagyl) 500 mg in 100 mls @ 100 mls/hr IVPB Q8H [facility] Last Admin: 03/20/17 14:29 Dose: 100 mls/hr Pneumococcal Polyvalent Vaccine (Pneumovax 23 Vaccine) 0.5 ml IM .ONCE ONE Stop: 03/23/17 10:01 Saccharomyces Boulardii (Florastor) [address] Last Admin: 03/20/17 18:06 Dose: 250 mg Physical Exam - Constitutional Appears: Non-toxic, Chronically Ill - Head Exam Head Exam: NORMOCEPHALIC - Eye Exam Eye Exam: PERRL. absent: Scleral icterus - ENT Exam ENT Exam: Mucous Membranes Dry, Normal External Ear Exam - Respiratory Exam Respiratory Exam: Decreased Breath Sounds, Rales, Rhonchi - Cardiovascular Exam Cardiovascular Exam: REGULAR RHYTHM, +S1, +S2 - GI/Abdominal Exam GI & Abdominal Exam: Diminished Bowel Sounds, Distended, Guarding, Soft, Tenderness. absent: Rebound, Rigid - Rectal Exam Rectal Exam: Deferred - Exam Exam: NORMAL INSPECTION - Extremities Exam Extremities exam: Negative for: calf tenderness, pedal edema - Back Exam Back exam: absent: CVA tenderness (L), CVA tenderness (R) - Neurological Exam Neurological exam: Alert, CN II-XII Intact, Oriented x3, Reflexes Normal - Psychiatric Exam Psychiatric exam: Normal Mood - Skin Skin Exam: Dry Results - Vital Signs Recent Vital Signs: Last Vital Signs Temp 98.8 F 03/20/17 15:15 Pulse 85 03/20/17 17:14 Resp 20 03/20/17 15:15 BP 118/70 03/20/17 15:15 Pulse Ox 97 03/20/17 15:15 - Labs Result Diagrams: 03/20/17 13:51 03/20/17 13:51 Labs: Laboratory Results - last 24 hr 03/20/17 03/20/17 03/20/17 03:00 07:52 08:48 WBC RBC Hgb Hct MCV MCH MCHC RDW Plt Count MPV Neut % (Auto) Lymph % (Auto) Owen % (Auto) Eos % (Auto) Baso % (Auto) Neut # Lymph # Owen # Eos # Baso # PT INR APTT pO2 50 VBG pH 7.39 VBG pCO2 33 L VBG HCO3 21.4 VBG Total CO2 21.0 L VBG O2 Sat (Calc) 91.6 H VBG Base Excess -4.1 L VBG Potassium 3.4 L Sodium 138.0 Chloride 110.0 H Glucose 116 H Lactate 0.7 Potassium Carbon Dioxide Anion Gap BUN Creatinine Est GFR ( Amer) Est GFR (Non-Af Amer) Random Glucose Calcium Total Bilirubin AST ALT Alkaline Phosphatase Total Protein Albumin Globulin Albumin/Globulin Ratio Procalcitonin 0.23 Venous Blood Potassium 3.4 L Ur L.pneumophila Ag Negative 03/20/17 03/20/17 03/20/17 13:51 13:51 15:16 WBC 8.6 RBC 4.35 L Hgb 12.4 Hct 37.1 MCV 85.3 MCH 28.6 MCHC 33.6 RDW 13.5 Plt Count 193 MPV 9.2 Neut % (Auto) 78.5 H Lymph % (Auto) 10.6 L Owen % (Auto) 9.9 Eos % (Auto) 0.1 Baso % (Auto) 0.9 Neut # 6.8 Lymph # 0.9 L Owen # 0.9 H Eos # 0.0 Baso # 0.1 PT 13.6 H INR 1.2 APTT 33 pO2 VBG pH VBG pCO2 VBG HCO3 VBG Total CO2 VBG O2 Sat (Calc) VBG Base Excess VBG Potassium Sodium 139 Chloride 106 Glucose Lactate Potassium 3.8 Carbon Dioxide 21 L Anion Gap 16 BUN 9 Creatinine 0.6 L Est GFR ( Amer) > 60 Est GFR (Non-Af Amer) > 60 Random Glucose 115 H Calcium 8.0 L Total Bilirubin 0.6 AST 40 ALT 64 Alkaline Phosphatase 110 Total Protein 6.4 Albumin 2.9 L D Globulin 3.4 Albumin/Globulin Ratio 0.9 L Procalcitonin Venous Blood Potassium Ur L.pneumophila Ag Assessment & Plan (1) Pneumonia Status: Acute (2) Sepsis Status: Acute - Assessment and Plan (Free Text) Assessment: pneumonia r/o sepsis r/o cholecystitis IV antibiotics await cultures and CT results
--- NOTE | 2017-03-20 18:21 | CT ---
CT chest, abdomen, and pelvis with IV contrast Indication: Pneumonia vs effusion, RUQ pain Technique: Contiguous axial images of the chest, abdomen, and pelvis. Coronal and Sagittal reformats generated and reviewed. This CT exam was performed using 1 or more of the following dose reduction techniques: Automated exposure control, adjustment of the MAA and/or kV according to patient size, and/or use of iterative reconstruction technique. Oral contrast was administered. 100 cc Visipaque 320 Radiation dose: Total exam DLP = 1199.71 MGy-cm. Comparison: Chest x-ray performed 03/20/17 Findings: Visualized portions of the inferior thyroid gland appear unremarkable. The mediastinal and hilar vascular structures appear within normal limits. The heart appears within normal limits of size. Numerous calcified right hilar lymph nodes. Subcarinal soft tissue measuring maximally 4.3 x 3.1 cm, presumably adenopathy (series 601, image 73). Extensive left upper lobe consolidation. Small upaz-aynclgq-kguv-right pleural effusions. No pneumothorax. Right middle and lower lobe calcified granulomas. Hypoattenuation of the liver compatible with hepatic steatosis. The spleen, kidneys, pancreas, adrenal glands, and gallbladder appear unremarkable. The stomach is nondistended. The bowel loops appear within normal limits of caliber without evidence of intestinal obstruction. Moderate constipation. Small bowel wall thickening may be related to enteritis. There is no definite free air. The appendix appears within normal limits of caliber. No secondary signs of acute appendicitis. The prostate gland measures approximately 4.4 x 4.9 cm. The urinary bladder appears unremarkable. No acute osseous abnormality is detected. Impression: Numerous calcified right hilar lymph nodes. Subcarinal soft tissue measuring maximally 4.3 x 3.1 cm, presumably adenopathy. Extensive left upper lobe consolidation. Recommend follow-up to complete resolution. Small juqw-mvbyqfs-ttfg-right pleural effusions. Hypoattenuation of the liver compatible with hepatic steatosis. Moderate constipation. Small bowel wall thickening may be related to enteritis.
--- NOTE | 2017-03-20 20:21 | CARD ---
APPROVED REPORT EKG Measurement Heart [id number] <Conclusion> Sinus tachycardia Mild lateral ST depression, consider ischemia Abnormal ECG
[2017-03-21] MEDS: Albuterol-Ipratrop 3 mg / 0.5 (3 ml) UD INH SCH ×4 (01:02→19:22)
[2017-03-21] MEDS: Piperacillin/Tazobact 3.375 GM in Sodium Chloride 100 ML IVPB SCH ×4 (02:42→20:26)
[2017-03-21] MEDS: Sodium Chloride 0.9% 1,000 ML IV SCH ×3 (05:31→20:23)
[2017-03-21] MEDS: metroNIDAZOLE IV 500 mg/100 ml 500 MG/100 ML BAG IVPB SCH ×2 (05:31→14:28)
[2017-03-21 06:20] LABS: BASO # 0.1 K/uL (0.0-0.2); BASO % 0.9 % (0.0-2.0); EOS % 0.3 % (0.0-4.0); LYMPH # 1.1 K/uL (1.0-4.3); LYMPH % 14.6 % (20.0-40.0); MEAN CELL VOLUME 84.1 fL (80.0-94.0); MEAN CORPUSCULAR HEMOGLOBIN 28.5 pg (27.0-31.0); MEAN CORPUSCULAR HGB CONC 33.9 g/dL (33.0-37.0); MEAN PLATELET VOLUME 8.9 fL (7.2-11.7); MONO % 12.9 % (0.0-10.0); RED CELL DISTRIBUTION WIDTH 13.8 % (11.5-14.5); WHITE BLOOD COUNT 7.7 K/uL (4.8-10.8)
[2017-03-21 06:40] LABS: ALKALINE PHOSPHATASE 104 U/L (38-126); ALT/SGPT 69 U/L (21-72); AST/SGOT 40 U/L (17-59); BILIRUBIN,TOTAL 0.7 mg/dL (0.2-1.3); BLOOD UREA NITROGEN 7 mg/dL (9-20); CALCIUM 8.3 mg/dl (8.6-10.4); CARBON DIOXIDE 24 mmol/L (22-30); CHLORIDE 103 mmol/L (98-107); GFR AFRICAN-AMERICAN > 60; GLUCOSE,RANDOM 103 mg/dL (75-110); MAGNESIUM 2.1 mg/dL (1.6-2.3); PHOSPHOROUS 2.6 mg/dL (2.5-4.5); POTASSIUM 3.8 mmol/L (3.6-5.2); SODIUM 135 mmol/L (132-148)
[2017-03-21 06:47] LABS: ALB/GLOB RATIO 0.9 (1.0-2.1)
--- NOTE | 2017-03-21 07:06 | CP.PCM.PN ---
<Lisa Shipman - Last Filed: 03/21/17 15:52> Subjective - Date & Time of Evaluation Date of Evaluation: 03/21/17 Time of Evaluation: 07:03 - Subjective Subjective: Pt seen and examined at bedside. Pt c/o fevers overnight but not currently. Pt still having non productive cough and headache exacerbated by cough. RUQ pain gone today. Pt says he has not had a BM since arrival but is passing flatus. Pt denies n/v/d/c/chills/diaphoresis. Objective - Vital Signs/Intake and Output Vital Signs (last 24 hours): Temp Pulse Resp BP Pulse Ox 99.2 F 85 20 106/69 97 03/21/17 04:05 03/21/17 04:05 03/21/17 04:05 03/21/17 04:05 03/21/17 04:05 Intake and Output: 03/21/17 03/21/17 06:59 18:59 Intake Total 1750 Output Total 400 Balance 1350 - Medications Medications: Current Medications Acetaminophen (Tylenol 325mg Tab) 650 mg PO Q6 PRN PRN Reason: Fever >100.4 F Last Admin: 03/21/17 02:40 Dose: 650 mg Albuterol/Ipratropium (Duoneb 3 Mg/0.5 Mg (3 Ml) Ud) 3 ml INH RQ6 [facility] Last Admin: 03/21/17 01:02 Dose: Not Given Enoxaparin Sodium (Lovenox) 30 mg SC DAILY [facility] Last Admin: 03/20/17 10:08 Dose: 30 mg Famotidine (Pepcid) 20 mg PO BID [facility] Last Admin: 03/20/17 18:06 Dose: 20 mg Sodium Chloride (Sodium Chloride 0.9%) 1,000 mls @ 100 mls/hr IV .Q10H [facility] Last Admin: 03/21/17 05:31 Dose: 100 mls/hr Piperacillin Sod/Tazobactam (Sod 3.375 gm/ Sodium Chloride) 100 mls @ 200 mls/ hr IVPB Q6H [facility] Last Admin: 03/21/17 02:42 Dose: 200 mls/hr Metronidazole (Flagyl) 500 mg in 100 mls @ 100 mls/hr IVPB Q8H [facility] Last Admin: 03/21/17 05:31 Dose: 100 mls/hr Pneumococcal Polyvalent Vaccine (Pneumovax 23 Vaccine) 0.5 ml IM .ONCE ONE Stop: 03/23/17 10:01 Saccharomyces Boulardii (Florastor) [address] Last Admin: 03/20/17 18:06 Dose: 250 mg - Labs Labs: 03/21/17 06:10 03/21/17 06:10 PT 13.6 SECONDS (9.7-12.2) H 03/20/17 15:16 INR 1.2 03/20/17 15:16 APTT 33 SECONDS (21-34) 03/20/17 15:16 - Respiratory Exam Respiratory Exam: Wheezes (heard anteriorly on the left upon inspiration ), NORMAL BREATHING PATTERN - GI/Abdominal Exam GI & Abdominal Exam: Distended, Soft, Hyperactive Bowel Sounds. absent: Guarding, Tenderness Assessment and Plan - Assessment and Plan (Free Text) Assessment: Pneumonia * Febrile, Tmax: 105.3 (03/20) * Lactate 2.2, repeat lactate: 0.7 (03/20) * Leukocytosis absent (WBC: 8.6 on 03/20) * Procalcitonin: 0.23 * Medication: * Tylenol 650mg PO Q6H PRN * Duonebs Q6 PRN * Discontinued Azithromycin 500mg IV 24H and Rocephin 1gm IV daily on (03/20) * Zosyn 3.375 g IVPB Q6H * Flagyl 500 mg/100 ml IVPB Q8H * CXR: left upper lobe pneumonia (03/20) * CT chest, abdomen, and pelvis : Numerous calcified right hilar lymph nodes. Subcarinal soft tissue measuring maximally 4.3 x 3.1 cm, presumably adenopathy.Extensive left upper lobe consolidation. Recommend follow-up to complete resolution.Small pgyi-mvvbzkh-qapl-right pleural effusions. Hypoattenuation of the liver compatible with hepatic steatosis. Moderate constipation. Small bowel wall thickening may be related to enteritis. * Pulmonary consult (Dr. Lomas) - recs appreciated * F/U ID consult (Dr. Thomas) - recs appreciated RUQ pain * Zosyn and flagyl as described above * F/U Surgery Consult (Dr. Castaneda) - no surgical intervention indicated * RUQ US: fatty liver infiltration, no gallstones, negative sonographic bourgeois sign * GI consult (Carole) - recs appreciated * F/U Hep panel RIGGINS * precipitated by coughing * Head CT: no acute intracranial pathology noted Cough * Incentive spirometry * Mucinex 600 mg PO * Promethazine/codiene 5ml PO q4 Sepsis * Resolving * Possibly secondary to pneumonia * Febrile, Tmax: Febrile, Tmax: 105.3 * HR: 110, Max: 112 * Lactate 2.2, repeat lactate: 0.7 * NS @ 100mls/hr * F/U Blood, throat, and urine culture Prophylactic measure * SCDS * Lovenox 30mg SC daily * Pepcid 20mg PO BID * Florastor 250mg PO BID <Kandy Gonzalez V - Last Filed: 03/24/17 17:23> Objective - Vital Signs/Intake and Output Vital Signs (last 24 hours): Temp Pulse Resp BP Pulse Ox 98.4 F 87 20 118/78 96 03/24/17 15:00 03/24/17 15:00 03/24/17 15:00 03/24/17 15:00 03/24/17 15:00 Intake and Output: 03/24/17 03/24/17 06:59 18:59 Intake Total 720 Balance 720 - Medications Medications: Current Medications Albuterol/Ipratropium (Duoneb 3 Mg/0.5 Mg (3 Ml) Ud) 3 ml INH RQ6 [facility] Last Admin: 03/24/17 13:39 Dose: 3 ml Docusate Sodium (Colace) 100 mg PO BID [facility] Last Admin: 03/24/17 10:27 Dose: 100 mg Enoxaparin Sodium (Lovenox) 30 mg SC DAILY [facility] Last Admin: 03/24/17 10:27 Dose: 30 mg Famotidine (Pepcid) 20 mg PO BID [facility] Last Admin: 03/24/17 10:27 Dose: 20 mg Guaifenesin (Mucinex La) 600 mg PO BID [facility] Last Admin: 03/24/17 10:27 Dose: 600 mg Piperacillin Sod/Tazobactam (Sod 3.375 gm/ Sodium Chloride) 100 mls @ 200 mls/ hr IVPB Q6H [facility] Last Admin: 03/24/17 14:03 Dose: 200 mls/hr Azithromycin 500 mg/ Sodium (Chloride) 250 mls @ 250 mls/hr IVPB DAILY [facility] Last Admin: 03/24/17 10:27 Dose: 250 mls/hr Promethazine HCl/Codeine (Phenergan/Codeine Oral Syrup) 5 ml PO Q4 PRN PRN Reason: Cough Last Admin: 03/22/17 22:17 Dose: 5 ml Saccharomyces Boulardii (Florastor) 250 mg PO BID [facility] Last Admin: 03/24/17 10:27 Dose: 250 mg - Labs Labs: 03/24/17 07:30 03/24/17 07:30 PT 13.6 SECONDS (9.7-12.2) H 03/20/17 15:16 INR 1.2 03/20/17 15:16 APTT 33 SECONDS (21-34) 03/20/17 15:16 Attending/Attestation - Attestation I have personally seen and examined this patient.: Yes I have fully participated in the care of the patient.: Yes I have reviewed all pertinent clinical information, including history, physical exam and plan: Yes Notes (Text): This is late computer entry for 03/21/17. Patient seen, examined and case discussed with day-time resident. Patient seen during morning rounds. Pain over RUQ pain improved compared to day prior but present. Per surgery, no surgical intervention. Will consult GI and pulmonary Supportive care for cough; started with Promethazine w codeine for cough and Mucinex, and advocated for incentive spirometry Will continue with IV abx for pneumonia Assessment/Plan 1) Sepsis * Criteria: Febrile Tmax: 105.3, tachycardia, source: pneumonia; Lactate acid: 2.2-->0.7; patient does not fulfill code sepsis * Infectious Disease (Dr. Michaud) on board-->help appreciated * Pulmonary (Dr. Lomas) consult-->f/u recommendations * NS @ 100mls/hr * Procalcitonin: 0.23 * F/U Blood, throat, and urine cultures * IV abx: Zosyn 3.375 IV Q 6hours (active since 03/20/17) and Flagyl 500mg IV Q 8H (active since 03/20/17) * RUQ US (03/20/17): fatty liver infiltration, no gallstones, negative sonographic bourgeois sign * CT Chest/Abdomen/Pelvis: extensive left upper lobe consolidation. Recommend follow-up to complete resolution, small left greater than right pleural effusions. Hypoattenuation of the liver compatible with hepatic steatosis. Moderate constipation, small bowel wall thickening may be related to enteritis. Numerous calcified right hilar lymph nodes. Subcarinal soft tissue measuring 4.3 X3.1cm, presumably adenopathy 2) Pneumonia * Infectious Disease (Dr. Michaud) on board-->help appreciated * Pulmonary (Dr. Lomas) consult-->f/u recommendations * NS @ 100mls/hr * Procalcitonin: 0.23 * IV Abx: Zosyn 3.375 g IVPB Q6H (active since 03/20/17) and Flagyl 500mg IV Q 8 hours (03/20/17) * CXR: left upper lobe pneumonia (03/20) * CT Chest/Abdomen/Pelvis: extensive left upper lobe consolidation. Recommend follow-up to complete resolution, small left greater than right pleural effusions. Hypoattenuation of the liver compatible with hepatic steatosis. Moderate constipation, small bowel wall thickening may be related to enteritis. Numerous calcified right hilar lymph nodes. Subcarinal soft tissue measuring 4.3 X3.1cm, presumably adenopathy * Will order for urine Legionella, mycoplasma Igm, Strep pneumoniae * Incentive spirometry * Mucinex 600mg PO bid * Promethazine/Codeine 5ml PO Q 4hr PRN cough 3) RUQ pain * On my exam, patient has positive Bourgeois's sign-->ordered for abdominal US/CT Chest/Abdomen/Pelvis and general surgery consult given +bourgeois's sign on 03/20/17 * CT Chest/Abdomen/Pelvis: extensive left upper lobe consolidation. Recommend follow-up to complete resolution, small left greater than right pleural effusions. Hypoattenuation of the liver compatible with hepatic steatosis. Moderate constipation, small bowel wall thickening may be related to enteritis. Numerous calcified right hilar lymph nodes. Subcarinal soft tissue measuring 4.3 X3.1cm, presumably adenopathy * General surgery (Dr. Castaneda) -->no surgical intervention * GI consult (Dr. Lam) on consult-->f/u r/o other causes of RUQ pain * RUQ US: fatty liver infiltration, no gallstones, negative sonographic bourgeois sign 4) Prophylactic measure * SCDS * Lovenox 30mg SC daily * Pepcid 20mg PO BID * Florastor 250mg PO BID
--- NOTE | 2017-03-21 09:02 | CP.PCM.PN ---
Subjective - Date & Time of Evaluation Date of Evaluation: 03/21/17 Time of Evaluation: 08:59 - Subjective Subjective: General Surgery - Dr. Castaneda Pt S&E. CHAKA. Pt had fever overnight, responded to tylenol. He denies any abdominal pain at all. He had regular diet last night and denies any N/V. Objective - Vital Signs/Intake and Output Vital Signs (last 24 hours): Temp Pulse Resp BP Pulse Ox 98.4 F 81 18 111/67 100 03/21/17 07:15 03/21/17 07:15 03/21/17 07:15 03/21/17 07:15 03/21/17 07:15 Intake and Output: 03/21/17 03/21/17 06:59 18:59 Intake Total 1750 Output Total 400 Balance 1350 - Medications Medications: Current Medications Acetaminophen (Tylenol 325mg Tab) 650 mg PO Q6 PRN PRN Reason: Fever >100.4 F Last Admin: 03/21/17 02:40 Dose: 650 mg Albuterol/Ipratropium (Duoneb 3 Mg/0.5 Mg (3 Ml) Ud) [address] [facility] Last Admin: 03/21/17 07:28 Dose: 3 ml Enoxaparin Sodium (Lovenox) [address] [facility] Last Admin: 03/20/17 10:08 Dose: 30 mg Famotidine (Pepcid) [address] [facility] Last Admin: 03/20/17 18:06 Dose: 20 mg Sodium Chloride (Sodium Chloride 0.9%) 1,000 mls @ 100 mls/hr IV .Q10H [facility] Last Admin: 03/21/17 05:31 Dose: 100 mls/hr Piperacillin Sod/Tazobactam (Sod 3.375 gm/ Sodium Chloride) 100 mls @ 200 mls/ hr IVPB Q6H [facility] Last Admin: 03/21/17 08:09 Dose: 200 mls/hr Metronidazole (Flagyl) 500 mg in 100 mls @ 100 mls/hr IVPB Q8H [facility] Last Admin: 03/21/17 05:31 Dose: 100 mls/hr Pneumococcal Polyvalent Vaccine (Pneumovax 23 Vaccine) 0.5 ml IM .ONCE ONE Stop: 03/23/17 10:01 Saccharomyces Boulardii (Florastor) [address] [facility] Last Admin: 03/20/17 18:06 Dose: 250 mg - Labs Labs: 03/21/17 06:10 03/21/17 06:10 PT 13.6 SECONDS (9.7-12.2) H 03/20/17 15:16 INR 1.2 03/20/17 15:16 APTT 33 SECONDS (21-34) 03/20/17 15:16 - Constitutional Appears: No Acute Distress - Head Exam Head Exam: ATRAUMATIC, NORMAL INSPECTION, NORMOCEPHALIC - Respiratory Exam Additional comments: getting breathing treatment - GI/Abdominal Exam GI & Abdominal Exam: Soft. absent: Distended, Firm, Guarding, Tenderness, Rebound Additional comments: No Bourgeois's sign - Neurological Exam Neurological Exam: Alert, Oriented x3 - Psychiatric Exam Psychiatric exam: Normal Affect, Normal Mood - Skin Skin Exam: Dry, Intact Assessment and Plan - Assessment and Plan (Free Text) Assessment: 46 yo M w/ pneumonia, surgery consulted for abdominal pain/Rule out cholecystitis -Abdominal pain resolved -Tolerating regular diet with no N/V -CT shows moderate constipation, will add Colace BID -U/S and CT negative for any GB or abdominal pathology -Surgery will Sign-Off, thank you or allowing us to participate in the care of this patient DW DR Leonel He PGy3
[2017-03-21] MEDS: Enoxaparin 30 mg Syringe SC SCH (09:45)
[2017-03-21] MEDS: Saccharomyces Boulardi 250 mg Cap PO SCH ×2 (09:46→18:25)
[2017-03-21 12:19] LABS: LEGIONELLA AG URINE NEGATIVE (NEGATIVE)
[2017-03-21] MEDS: Promethazine/Cod 6.25mg-10mg/5ml Syr UD PO PRN ×2 (13:09→22:41)
--- NOTE | 2017-03-21 13:51 | CT ---
PROCEDURE: CT HEAD WITHOUT CONTRAST. HISTORY: headache COMPARISON: None available. TECHNIQUE: Axial computed tomography images were obtained through the head/brain without intravenous contrast. Radiation dose: Total exam DLP = 852.98 mGy-cm. This CT exam was performed using one or more of the following dose reduction techniques: Automated exposure control, adjustment of the mA and/or kV according to patient size, and/or use of iterative reconstruction technique. FINDINGS: HEMORRHAGE: No intracranial hemorrhage. BRAIN: No mass effect or edema. The cooley-white matter differentiation appears intact. Please note that MRI with diffusion imaging is more sensitive in the detection of acute ischemic event. VENTRICLES: No hydrocephalus. CALVARIUM: Unremarkable. PARANASAL SINUSES: Unremarkable as visualized. No significant inflammatory changes. MASTOID AIR CELLS: Unremarkable as visualized. No inflammatory changes. OTHER FINDINGS: None. IMPRESSION: No acute intracranial pathology identified.
[2017-03-21] MEDS: guaiFENesin 600 mg ER Tab PO SCH (18:24)
--- NOTE | 2017-03-21 18:25 | CP.PCM.CON ---
History of Present Illness - History of Present Illness History of Present Illness: Asked today to see pt for abd pain. Pt reports RUQ pain for few weeks. Pain is after cough, deep breath and after running. Pain is sharp. Reports constip Denies diarrhea, RB, melena, fever. chills SZ, Review of Systems - Constitutional Constitutional: Fatigue, Fever, Weakness - Cardiovascular Cardiovascular: Chest Pain, Dyspnea - Respiratory Respiratory: Cough. absent: Hemoptysis - Gastrointestinal Gastrointestinal: Abdominal Pain, Constipation. absent: Diarrhea, Hematemesis, Hematochezia, Loose Stools, Melena, Vomiting - Genitourinary Genitourinary: absent: Hematuria - Neurological Neurological: absent: Abnormal Speech, Confusion Past Patient History - Infectious Disease Hx of Infectious Diseases: None - Past Medical History & Family History Past Medical History?: No - Past Social History Smoking Status: Never Smoked - MUSCULOSKELETAL/RHEUMATOLOGICAL Hx Falls: No - PSYCHIATRIC Hx Substance Use: No - SURGICAL HISTORY Hx Surgeries: No - ANESTHESIA Hx Anesthesia: No Meds Allergies/Adverse Reactions: Allergies Allergy/AdvReac Type Severity Reaction Status Date / Time No Known Allergies Allergy Verified 03/19/17 23:57 - Medications Medications: Current Medications Acetaminophen (Tylenol 325mg Tab) 650 mg PO Q6 PRN PRN Reason: Fever >100.4 F Last Admin: 03/21/17 14:03 Dose: 650 mg Albuterol/Ipratropium (Duoneb 3 Mg/0.5 Mg (3 Ml) Ud) 3 ml INH RQ6 [facility] Last Admin: 03/21/17 12:50 Dose: 3 ml Docusate Sodium (Colace) 100 mg PO BID [facility] Last Admin: 03/21/17 09:46 Dose: 100 mg Enoxaparin Sodium (Lovenox) 30 mg SC DAILY [facility] Last Admin: 03/21/17 09:45 Dose: 30 mg Famotidine (Pepcid) 20 mg PO BID [facility] Last Admin: 03/21/17 09:46 Dose: 20 mg Guaifenesin (Mucinex La) 600 mg PO BID [facility] Sodium Chloride (Sodium Chloride 0.9%) 1,000 mls @ 100 mls/hr IV .Q10H [facility] Last Admin: 03/21/17 05:31 Dose: 100 mls/hr Piperacillin Sod/Tazobactam (Sod 3.375 gm/ Sodium Chloride) 100 mls @ 200 mls/ hr IVPB Q6H [facility] Last Admin: 03/21/17 13:09 Dose: 200 mls/hr Metronidazole (Flagyl) 500 mg in 100 mls @ 100 mls/hr IVPB Q8H [facility] Last Admin: 03/21/17 14:28 Dose: 100 mls/hr Pneumococcal Polyvalent Vaccine (Pneumovax 23 Vaccine) 0.5 ml IM .ONCE ONE Stop: 03/23/17 10:01 Promethazine HCl/Codeine (Phenergan/Codeine Oral Syrup) 5 ml PO Q4 PRN PRN Reason: Cough Last Admin: 03/21/17 13:09 Dose: 5 ml Saccharomyces Boulardii (Florastor) 250 mg PO BID [facility] Last Admin: 03/21/17 09:46 Dose: 250 mg Physical Exam - Constitutional Appears: Non-toxic - Neck Exam Neck exam: Negative for: Tenderness - Respiratory Exam Respiratory Exam: Rhonchi - Cardiovascular Exam Cardiovascular Exam: RRR - GI/Abdominal Exam GI & Abdominal Exam: Normal Bowel Sounds, Soft. absent: Distended, Firm, Guarding, Mass, Rebound, Tenderness - Neurological Exam Neurological exam: Alert, Oriented x3 Results - Vital Signs Recent Vital Signs: Last Vital Signs Temp 99.2 F 03/21/17 15:38 Pulse 81 03/21/17 15:38 Resp 20 03/21/17 15:38 BP 116/68 03/21/17 15:38 Pulse Ox 95 03/21/17 15:38 - Labs Result Diagrams: 03/21/17 06:10 03/21/17 06:10 Labs: Laboratory Results - last 24 hr 03/20/17 03/20/17 03/20/17 20:46 20:46 20:46 WBC RBC Hgb Hct MCV MCH MCHC RDW Plt Count MPV Neut % (Auto) Lymph % (Auto) Miller % (Auto) Eos % (Auto) Baso % (Auto) Neut # Lymph # Miller # Eos # Baso # Sodium Potassium Chloride Carbon Dioxide Anion Gap BUN Creatinine Est GFR ( Amer) Est GFR (Non-Af Amer) Random Glucose Calcium Phosphorus Magnesium Total Bilirubin AST ALT Alkaline Phosphatase Total Protein Albumin Globulin Albumin/Globulin Ratio Hepatitis A IgM Ab Negative Hep Bs Antigen Negative Hep B Core IgM Ab Negative Hepatitis C Antibody Negative HIV 1&2 Antibody Screen Negative Ur L.pneumophila Ag Negative Mycoplasma pneumon IgM 03/21/17 03/21/17 03/21/17 06:10 06:10 11:39 WBC 7.7 RBC 4.29 L Hgb 12.2 Hct 36.0 MCV 84.1 MCH 28.5 MCHC 33.9 RDW 13.8 Plt Count 204 MPV 8.9 Neut % (Auto) 71.3 Lymph % (Auto) 14.6 L Miller % (Auto) 12.9 H Eos % (Auto) 0.3 Baso % (Auto) 0.9 Neut # 5.5 Lymph # 1.1 Miller # 1.0 H Eos # 0.0 Baso # 0.1 Sodium 135 Potassium 3.8 Chloride 103 Carbon Dioxide 24 Anion Gap 12 BUN 7 L Creatinine 0.6 L Est GFR ( Amer) > 60 Est GFR (Non-Af Amer) > 60 Random Glucose 103 Calcium 8.3 L Phosphorus 2.6 Magnesium 2.1 Total Bilirubin 0.7 AST 40 ALT 69 Alkaline Phosphatase 104 Total Protein 6.0 L Albumin 2.9 L Globulin 3.1 Albumin/Globulin Ratio 0.9 L Hepatitis A IgM Ab Hep Bs Antigen Hep B Core IgM Ab Hepatitis C Antibody HIV 1&2 Antibody Screen Ur L.pneumophila Ag Negative Mycoplasma pneumon IgM Negative 03/21/17 16:27 WBC RBC Hgb Hct MCV MCH MCHC RDW Plt Count MPV Neut % (Auto) Lymph % (Auto) Miller % (Auto) Eos % (Auto) Baso % (Auto) Neut # Lymph # Miller # Eos # Baso # Sodium Potassium Chloride Carbon Dioxide Anion Gap BUN Creatinine Est GFR ( Amer) Est GFR (Non-Af Amer) Random Glucose Calcium Phosphorus Magnesium Total Bilirubin AST ALT Alkaline Phosphatase Total Protein Albumin Globulin Albumin/Globulin Ratio Hepatitis A IgM Ab Negative Hep Bs Antigen Negative Hep B Core IgM Ab Negative Hepatitis C Antibody Negative HIV 1&2 Antibody Screen Ur L.pneumophila Ag Mycoplasma pneumon IgM Assessment & Plan (1) Cough Assessment and Plan: pneumonia Status: Acute (2) RUQ pain Assessment and Plan: Sounds like musculoskeletal. I doubt GB disease. Sono- no stones. I doubt PUD. Status: Acute (3) Constipation Assessment and Plan: Also seen on CT Status: Acute (4) Enteritis Assessment and Plan: On CT- I doubt reql enteritis. No diarrhea. No enteritis pain. Status: Acute (5) Pneumonia Status: Acute (6) Sepsis Status: Acute
--- NOTE | 2017-03-21 19:41 | CP.PCM.PN ---
Subjective - Date & Time of Evaluation Date of Evaluation: 03/21/17 Time of Evaluation: 08:00 - Subjective Subjective: FEVER + COUGH IS NON PRODUCTIVE ALERT NAD RX IN PROGRESS Objective - Vital Signs/Intake and Output Vital Signs (last 24 hours): Temp Pulse Resp BP Pulse Ox 99.2 F 81 20 116/68 95 03/21/17 15:38 03/21/17 15:38 03/21/17 15:38 03/21/17 15:38 03/21/17 15:38 Intake and Output: 03/21/17 03/22/17 18:59 06:59 Intake Total 500 Balance 500 - Medications Medications: Current Medications Acetaminophen (Tylenol 325mg Tab) 650 mg PO Q6 PRN PRN Reason: Fever >100.4 F Last Admin: 03/21/17 14:03 Dose: 650 mg Albuterol/Ipratropium (Duoneb 3 Mg/0.5 Mg (3 Ml) Ud) 3 ml INH RQ6 [facility] Last Admin: 03/21/17 19:22 Dose: Not Given Docusate Sodium (Colace) 100 mg PO BID [facility] Last Admin: 03/21/17 18:25 Dose: 100 mg Enoxaparin Sodium (Lovenox) 30 mg SC DAILY [facility] Last Admin: 03/21/17 09:45 Dose: 30 mg Famotidine (Pepcid) 20 mg PO BID [facility] Last Admin: 03/21/17 18:25 Dose: 20 mg Guaifenesin (Mucinex La) 600 mg PO BID [facility] Last Admin: 03/21/17 18:24 Dose: 600 mg Sodium Chloride (Sodium Chloride 0.9%) 1,000 mls @ 100 mls/hr IV .Q10H [facility] Last Admin: 03/21/17 16:30 Dose: Not Given Piperacillin Sod/Tazobactam (Sod 3.375 gm/ Sodium Chloride) 100 mls @ 200 mls/ hr IVPB Q6H [facility] Last Admin: 03/21/17 13:09 Dose: 200 mls/hr Metronidazole (Flagyl) 500 mg in 100 mls @ 100 mls/hr IVPB Q8H [facility] Last Admin: 03/21/17 14:28 Dose: 100 mls/hr Pneumococcal Polyvalent Vaccine (Pneumovax 23 Vaccine) 0.5 ml IM .ONCE ONE Stop: 03/23/17 10:01 Promethazine HCl/Codeine (Phenergan/Codeine Oral Syrup) 5 ml PO Q4 PRN PRN Reason: Cough Last Admin: 03/21/17 13:09 Dose: 5 ml Saccharomyces Boulardii (Florastor) [address] Last Admin: 03/21/17 18:25 Dose: 250 mg - Labs Labs: 03/21/17 06:10 03/21/17 06:10 PT 13.6 SECONDS (9.7-12.2) H 03/20/17 15:16 INR 1.2 03/20/17 15:16 APTT 33 SECONDS (21-34) 03/20/17 15:16 - Constitutional Appears: Non-toxic, Chronically Ill - Head Exam Head Exam: NORMOCEPHALIC - Eye Exam Eye Exam: PERRL - ENT Exam ENT Exam: Mucous Membranes Dry - Neck Exam Neck Exam: absent: Lymphadenopathy - Respiratory Exam Respiratory Exam: Decreased Breath Sounds, Rhonchi - Cardiovascular Exam Cardiovascular Exam: REGULAR RHYTHM, +S1, +S2 - GI/Abdominal Exam GI & Abdominal Exam: Distended, Soft - Rectal Exam Rectal Exam: Deferred - Exam Exam: NORMAL INSPECTION - Extremities Exam Extremities Exam: absent: Pedal Edema - Back Exam Back Exam: absent: CVA tenderness (L), CVA tenderness (R) Assessment and Plan (1) Pneumonia Status: Acute (2) Sepsis Status: Acute
[2017-03-22] MEDS: Albuterol-Ipratrop 3 mg / 0.5 (3 ml) UD INH SCH ×4 (01:02→20:00)
[2017-03-22] MEDS: Sodium Chloride 0.9% 1,000 ML IV SCH ×4 (02:02→22:30)
[2017-03-22] MEDS: Piperacillin/Tazobact 3.375 GM in Sodium Chloride 100 ML IVPB SCH ×4 (02:56→19:45)
[2017-03-22 07:31] LABS: BASO # 0.1 K/uL (0.0-0.2); BASO % 1.2 % (0.0-2.0); EOS # 0.1 K/uL (0.0-0.7); EOS % 1.1 % (0.0-4.0); HEMATOCRIT 39.8 % (35.0-51.0); LYMPH # 1.2 K/uL (1.0-4.3); LYMPH % 15.8 % (20.0-40.0); MEAN CELL VOLUME 84.6 fL (80.0-94.0); MEAN CORPUSCULAR HEMOGLOBIN 28.8 pg (27.0-31.0); MEAN PLATELET VOLUME 9.3 fL (7.2-11.7); MONO # 1.2 K/uL (0.0-0.8); MONO % 15.7 % (0.0-10.0); WHITE BLOOD COUNT 7.4 K/uL (4.8-10.8)
[2017-03-22 08:01] LABS: CHLORIDE 104 mmol/L (98-107); POTASSIUM 3.6 mmol/L (3.6-5.2); SODIUM 141 mmol/L (132-148)
[2017-03-22 08:03] LABS: AST/SGOT 46 U/L (17-59); BILIRUBIN,TOTAL 0.9 mg/dL (0.2-1.3); CARBON DIOXIDE 27 mmol/L (22-30); GFR AFRICAN-AMERICAN > 60
[2017-03-22 08:04] LABS: ALB/GLOB RATIO 0.9 (1.0-2.1); ALKALINE PHOSPHATASE 135 U/L (38-126); ALT/SGPT 77 U/L (21-72); BLOOD UREA NITROGEN 6 mg/dL (9-20); CALCIUM 8.3 mg/dl (8.6-10.4); GLUCOSE,RANDOM 95 mg/dL (75-110); MAGNESIUM 2.1 mg/dL (1.6-2.3)
[2017-03-22] MEDS: Promethazine/Cod 6.25mg-10mg/5ml Syr UD PO PRN ×2 (08:41→22:17)
[2017-03-22] MEDS: Enoxaparin 30 mg Syringe SC SCH (09:22)
[2017-03-22] MEDS: Saccharomyces Boulardi 250 mg Cap PO SCH ×2 (09:23→19:45)
[2017-03-22] MEDS: guaiFENesin 600 mg ER Tab PO SCH ×2 (09:23→18:00)
[2017-03-22] MEDS: Azithromycin 500 MG in Sodium Chloride 0.9% 250 ML IVPB SCH (09:24)
--- NOTE | 2017-03-22 15:36 | CP.PCM.PN ---
<Lisa Shipman - Last Filed: 03/22/17 18:18> Subjective - Date & Time of Evaluation Date of Evaluation: 03/22/17 Time of Evaluation: 15:36 - Subjective Subjective: Patient seen and examined at bedside. Patient had just finished breathing treatment and said it made him jittery. Patient still complaining of dry cough causing headache as well as RUQ pain. Patient had a fever last night but currently denies fever or chills. Pt denies n/v/cp/sob. Objective - Vital Signs/Intake and Output Vital Signs (last 24 hours): Temp Pulse Resp BP Pulse Ox 100.6 F H 106 H 18 144/81 98 03/22/17 13:58 03/22/17 13:00 03/22/17 07:20 03/22/17 13:00 03/22/17 07:20 Intake and Output: 03/22/17 03/22/17 06:59 18:59 Output Total 1999 Balance -1999 - Medications Medications: Current Medications Acetaminophen (Tylenol 325mg Tab) 650 mg PO Q6 PRN PRN Reason: Fever >100.4 F Last Admin: 03/22/17 13:58 Dose: 650 mg Albuterol/Ipratropium (Duoneb 3 Mg/0.5 Mg (3 Ml) Ud) 3 ml INH RQ6 [facility] Last Admin: 03/22/17 13:10 Dose: 3 ml Docusate Sodium (Colace) 100 mg PO BID [facility] Last Admin: 03/22/17 09:23 Dose: 100 mg Enoxaparin Sodium (Lovenox) 30 mg SC DAILY [facility] Last Admin: 03/22/17 09:22 Dose: 30 mg Famotidine (Pepcid) 20 mg PO BID [facility] Last Admin: 03/22/17 09:23 Dose: 20 mg Guaifenesin (Mucinex La) 600 mg PO BID [facility] Last Admin: 03/22/17 09:23 Dose: 600 mg Sodium Chloride (Sodium Chloride 0.9%) 1,000 mls @ 100 mls/hr IV .Q10H [facility] Last Admin: 03/22/17 13:00 Dose: Not Given Piperacillin Sod/Tazobactam (Sod 3.375 gm/ Sodium Chloride) 100 mls @ 200 mls/ hr IVPB Q6H [facility] Last Admin: 03/22/17 13:51 Dose: 200 mls/hr Azithromycin 500 mg/ Sodium (Chloride) 250 mls @ 250 mls/hr IVPB DAILY [facility] Last Admin: 03/22/17 09:24 Dose: 250 mls/hr Pneumococcal Polyvalent Vaccine (Pneumovax 23 Vaccine) 0.5 ml IM .ONCE ONE Stop: 03/23/17 10:01 Promethazine HCl/Codeine (Phenergan/Codeine Oral Syrup) 5 ml PO Q4 PRN PRN Reason: Cough Last Admin: 03/22/17 08:41 Dose: 5 ml Saccharomyces Boulardii (Florastor) 250 mg PO BID [facility] Last Admin: 03/22/17 09:23 Dose: 250 mg - Labs Labs: 03/22/17 07:05 03/22/17 07:05 PT 13.6 SECONDS (9.7-12.2) H 03/20/17 15:16 INR 1.2 03/20/17 15:16 APTT 33 SECONDS (21-34) 03/20/17 15:16 - Constitutional Appears: Non-toxic - Head Exam Head Exam: NORMAL INSPECTION - Eye Exam Eye Exam: EOMI - ENT Exam ENT Exam: Mucous Membranes Moist - Respiratory Exam Respiratory Exam: Wheezes, NORMAL BREATHING PATTERN. absent: Accessory Muscle Use, Respiratory Distress - Cardiovascular Exam Cardiovascular Exam: REGULAR RHYTHM, +S1, +S2. absent: Murmur - GI/Abdominal Exam GI & Abdominal Exam: Soft, Tenderness (RUQ), Normal Bowel Sounds - Extremities Exam Extremities Exam: Normal Inspection - Neurological Exam Neurological Exam: Alert, Awake - Psychiatric Exam Psychiatric exam: Normal Affect, Normal Mood - Skin Skin Exam: Dry, Intact, Warm Assessment and Plan - Assessment and Plan (Free Text) Assessment: Pneumonia * Febrile * next fever spike --> order blood culture * Lactate 2.2, repeat lactate: 0.7 (03/20) * Leukocytosis absent (WBC: 8.6 on 03/20) * Procalcitonin: 0.23 * Medication: * Tylenol 650mg PO Q6H PRN * Duonebs Q6 PRN * Discontinued Azithromycin 500mg IV 24H and Rocephin 1gm IV daily on (03/20) * Zosyn 3.375 g IVPB Q6H * Flagyl 500 mg/100 ml IVPB Q8H * CXR: left upper lobe pneumonia (03/20) * CT chest, abdomen, and pelvis : Numerous calcified right hilar lymph nodes. Subcarinal soft tissue measuring maximally 4.3 x 3.1 cm, presumably adenopathy.Extensive left upper lobe consolidation. Recommend follow-up to complete resolution.Small [id number]-right pleural effusions. Hypoattenuation of the liver compatible with hepatic steatosis. Moderate constipation. Small bowel wall thickening may be related to enteritis. * Pulmonary consult (Dr. Lomas) - recs appreciated * F/U ID consult (Dr. Thomas) * PT eval RUQ pain * Zosyn and flagyl as described above * F/U Surgery Consult (Dr. Castaneda) - no surgical intervention indicated * RUQ US: fatty liver infiltration, no gallstones, negative sonographic bourgeois sign * GI consult (Carole) - Sounds like musculoskeletal. Doubt GB disease. Sono- no stones. Doubt PUD. Doubt reql enteritis. No diarrhea. No enteritis pain. * Hep panel negative RIGGINS * precipitated by coughing * Head CT: no acute intracranial pathology noted Cough * Incentive spirometry * Mucinex 600 mg PO * Promethazine/codiene 5ml PO q4 Sepsis * Resolving * Possibly secondary to pneumonia * Febrile, Tmax: Febrile, Tmax: 105.3 * HR: 110, Max: 112 * Lactate 2.2, repeat lactate: 0.7 * NS @ 100mls/hr * Blood, throat, and urine culture negative Prophylactic measure * SCDS * Lovenox 30mg SC daily * Pepcid 20mg PO BID * Florastor 250mg PO BID <Kandy Gonzalez V - Last Filed: 03/24/17 17:31> Objective - Vital Signs/Intake and Output Vital Signs (last 24 hours): Temp Pulse Resp BP Pulse Ox 98.4 F 87 20 118/78 96 03/24/17 15:00 03/24/17 15:00 03/24/17 15:00 03/24/17 15:00 03/24/17 15:00 Intake and Output: 03/24/17 03/24/17 06:59 18:59 Intake Total 720 Balance 720 - Medications Medications: Current Medications Albuterol/Ipratropium (Duoneb 3 Mg/0.5 Mg (3 Ml) Ud) [address] Last Admin: 03/24/17 13:39 Dose: 3 ml Docusate Sodium (Colace) 100 mg PO BID [facility] Last Admin: 03/24/17 10:27 Dose: 100 mg Enoxaparin Sodium (Lovenox) 30 mg SC DAILY [facility] Last Admin: 03/24/17 10:27 Dose: 30 mg Famotidine (Pepcid) 20 mg PO BID [facility] Last Admin: 03/24/17 10:27 Dose: 20 mg Guaifenesin (Mucinex La) 600 mg PO BID [facility] Last Admin: 03/24/17 10:27 Dose: 600 mg Piperacillin Sod/Tazobactam (Sod 3.375 gm/ Sodium Chloride) 100 mls @ 200 mls/ hr IVPB Q6H [facility] Last Admin: 03/24/17 14:03 Dose: 200 mls/hr Azithromycin 500 mg/ Sodium (Chloride) 250 mls @ 250 mls/hr IVPB DAILY [facility] Last Admin: 03/24/17 10:27 Dose: 250 mls/hr Promethazine HCl/Codeine (Phenergan/Codeine Oral Syrup) 5 ml PO Q4 PRN PRN Reason: Cough Last Admin: 03/22/17 22:17 Dose: 5 ml Saccharomyces Boulardii (Florastor) 250 mg PO BID [facility] Last Admin: 03/24/17 10:27 Dose: 250 mg - Labs Labs: 03/24/17 07:30 03/24/17 07:30 PT 13.6 SECONDS (9.7-12.2) H 03/20/17 15:16 INR 1.2 03/20/17 15:16 APTT 33 SECONDS (21-34) 03/20/17 15:16 Attending/Attestation - Attestation I have personally seen and examined this patient.: Yes I have fully participated in the care of the patient.: Yes I have reviewed all pertinent clinical information, including history, physical exam and plan: Yes Notes (Text): This is late computer entry for 03/22/17. Patient seen, examined and case discussed with day-time resident. Patient seen during morning rounds. Patient spike a fever yesterday afternoon; instructed resident on next fever to order for blood cultures. patient's cough improving with IV abx and supportive care for the cough Pending recommendations by pulmonary Discussed with ID, patient put in airborne isolation as precaution; ordered for AFB Q 8 hours (3), quantaferon-gold r/o TB, patient does not personally smoke but lives with people who smoke (2nd hand smoke) Will continue with IV abx for pneumonia Assessment/Plan 1) Sepsis * Criteria: Febrile Tmax: 105.3, tachycardia, source: pneumonia; Lactate acid: 2.2-->0.7; patient does not fulfill code sepsis * Infectious Disease (Dr. Michaud) on board-->help appreciated * Pulmonary (Dr. Lomas) consult-->f/u recommendations * NS @ 100mls/hr * Procalcitonin: 0.23 * F/U Blood, throat, and urine cultures--.>remain negative * IV abx: Zosyn 3.375 IV Q 6hours (active since 03/20/17) and Flagyl 500mg IV Q 8H (active since 03/20/17) * RUQ US (03/20/17): fatty liver infiltration, no gallstones, negative sonographic bourgeois sign * CT Chest/Abdomen/Pelvis: extensive left upper lobe consolidation. Recommend follow-up to complete resolution, small left greater than right pleural effusions. Hypoattenuation of the liver compatible with hepatic steatosis. Moderate constipation, small bowel wall thickening may be related to enteritis. Numerous calcified right hilar lymph nodes. Subcarinal soft tissue measuring 4.3 X3.1cm, presumably adenopathy 2) Pneumonia * Infectious Disease (Dr. Michaud) on board-->help appreciated * Pulmonary (Dr. Lomas) consult-->f/u recommendations * NS @ 100mls/hr * Procalcitonin: 0.23 * IV Abx: Zosyn 3.375 g IVPB Q6H (active since 03/20/17) and Flagyl 500mg IV Q 8 hours (03/20/17) * CXR: left upper lobe pneumonia (03/20) * CT Chest/Abdomen/Pelvis: extensive left upper lobe consolidation. Recommend follow-up to complete resolution, small left greater than right pleural effusions. Hypoattenuation of the liver compatible with hepatic steatosis. Moderate constipation, small bowel wall thickening may be related to enteritis. Numerous calcified right hilar lymph nodes. Subcarinal soft tissue measuring 4.3 X3.1cm, presumably adenopathy * Will order for urine Legionella, mycoplasma Igm, Strep pneumoniae * Incentive spirometry * Mucinex 600mg PO bid * Promethazine/Codeine 5ml PO Q 4hr PRN cough * Placed on airbone as a precaution r/o TB * AFB sputums Q 8 (3) * Quantaferon gold ordered 3) RUQ pain * On my exam, patient has positive Bourgeois's sign-->ordered for abdominal US/CT Chest/Abdomen/Pelvis and general surgery consult given +bourgeois's sign on 03/20/17 * CT Chest/Abdomen/Pelvis: extensive left upper lobe consolidation. Recommend follow-up to complete resolution, small left greater than right pleural effusions. Hypoattenuation of the liver compatible with hepatic steatosis. Moderate constipation, small bowel wall thickening may be related to enteritis. Numerous calcified right hilar lymph nodes. Subcarinal soft tissue measuring 4.3 X3.1cm, presumably adenopathy * General surgery (Dr. Castaneda) -->help appreciated * no surgical intervention * GI consult (Dr. Lam) on consult--> help appreciated * sounds muscluoskeletal * RUQ US: fatty liver infiltration, no gallstones, negative sonographic bourgeois sign * Hepatitis panel negative 4) Prophylactic measure * SCDS * Lovenox 30mg SC daily * Pepcid 20mg PO BID * Florastor 250mg PO BID
--- NOTE | 2017-03-22 15:53 | CP.PCM.PN ---
Subjective - Date & Time of Evaluation Date of Evaluation: 03/22/17 Time of Evaluation: 15:51 - Subjective Subjective: CC: RUQ pain point tenderness RUQ "when I touch it" Not GI or biliary related pain No further workup necessary Objective - Vital Signs/Intake and Output Vital Signs (last 24 hours): Temp Pulse Resp BP Pulse Ox 100.6 F H 106 H 18 144/81 98 03/22/17 13:58 03/22/17 13:00 03/22/17 07:20 03/22/17 13:00 03/22/17 07:20 Intake and Output: 03/22/17 03/22/17 06:59 18:59 Output Total 1999 Balance -1999 - Medications Medications: Current Medications Acetaminophen (Tylenol 325mg Tab) 650 mg PO Q6 PRN PRN Reason: Fever >100.4 F Last Admin: 03/22/17 13:58 Dose: 650 mg Albuterol/Ipratropium (Duoneb 3 Mg/0.5 Mg (3 Ml) Ud) 3 ml INH RQ6 [facility] Last Admin: 03/22/17 13:10 Dose: 3 ml Docusate Sodium (Colace) 100 mg PO BID [facility] Last Admin: 03/22/17 09:23 Dose: 100 mg Enoxaparin Sodium (Lovenox) 30 mg SC DAILY [facility] Last Admin: 03/22/17 09:22 Dose: 30 mg Famotidine (Pepcid) 20 mg PO BID [facility] Last Admin: 03/22/17 09:23 Dose: 20 mg Guaifenesin (Mucinex La) 600 mg PO BID [facility] Last Admin: 03/22/17 09:23 Dose: 600 mg Sodium Chloride (Sodium Chloride 0.9%) 1,000 mls @ 100 mls/hr IV .Q10H [facility] Last Admin: 03/22/17 13:00 Dose: Not Given Piperacillin Sod/Tazobactam (Sod 3.375 gm/ Sodium Chloride) 100 mls @ 200 mls/ hr IVPB Q6H [facility] Last Admin: 03/22/17 13:51 Dose: 200 mls/hr Azithromycin 500 mg/ Sodium (Chloride) 250 mls @ 250 mls/hr IVPB DAILY [facility] Last Admin: 03/22/17 09:24 Dose: 250 mls/hr Pneumococcal Polyvalent Vaccine (Pneumovax 23 Vaccine) 0.5 ml IM .ONCE ONE Stop: 03/23/17 10:01 Promethazine HCl/Codeine (Phenergan/Codeine Oral Syrup) 5 ml PO Q4 PRN PRN Reason: Cough Last Admin: 03/22/17 08:41 Dose: 5 ml Saccharomyces Boulardii (Florastor) [address] Last Admin: 03/22/17 09:23 Dose: 250 mg - Labs Labs: 03/22/17 07:05 03/22/17 07:05 PT 13.6 SECONDS (9.7-12.2) H 03/20/17 15:16 INR 1.2 03/20/17 15:16 APTT 33 SECONDS (21-34) 03/20/17 15:16 - Constitutional Appears: Well - Head Exam Head Exam: NORMOCEPHALIC - Eye Exam Eye Exam: absent: Scleral icterus - GI/Abdominal Exam GI & Abdominal Exam: Soft. absent: Distended, Tenderness, Organomegaly Assessment and Plan (1) RUQ pain Assessment & Plan: Muskuloskeletal pain No further GI workup is planned Laxatives PRN constipation Plan as outlined in consultation Mar 21 Will sign off Status: Acute
--- NOTE | 2017-03-22 18:13 | CP.PCM.PN ---
Subjective - Date & Time of Evaluation Date of Evaluation: 03/22/17 Time of Evaluation: 08:00 - Subjective Subjective: FEVER PERSISTS CULTURES NEGATIVE CT CHEST + SUBCARINAL NODES/ RUL CONSOLIDATION MAY NEED ISO TO R/O AFB MAY NEED FOB Objective - Vital Signs/Intake and Output Vital Signs (last 24 hours): Temp Pulse Resp BP Pulse Ox 98.1 F 86 20 119/70 95 03/22/17 15:08 03/22/17 15:08 03/22/17 15:08 03/22/17 15:08 03/22/17 15:08 Intake and Output: 03/22/17 03/22/17 06:59 18:59 Output Total 1999 Balance -1999 - Medications Medications: Current Medications Acetaminophen (Tylenol 325mg Tab) 650 mg PO Q6 PRN PRN Reason: Fever >100.4 F Last Admin: 03/22/17 13:58 Dose: 650 mg Albuterol/Ipratropium (Duoneb 3 Mg/0.5 Mg (3 Ml) Ud) 3 ml INH RQ6 [facility] Last Admin: 03/22/17 13:10 Dose: 3 ml Docusate Sodium (Colace) 100 mg PO BID [facility] Last Admin: 03/22/17 09:23 Dose: 100 mg Enoxaparin Sodium (Lovenox) 30 mg SC DAILY [facility] Last Admin: 03/22/17 09:22 Dose: 30 mg Famotidine (Pepcid) 20 mg PO BID [facility] Last Admin: 03/22/17 09:23 Dose: 20 mg Guaifenesin (Mucinex La) 600 mg PO BID [facility] Last Admin: 03/22/17 09:23 Dose: 600 mg Sodium Chloride (Sodium Chloride 0.9%) 1,000 mls @ 100 mls/hr IV .Q10H [facility] Last Admin: 03/22/17 13:00 Dose: Not Given Piperacillin Sod/Tazobactam (Sod 3.375 gm/ Sodium Chloride) 100 mls @ 200 mls/ hr IVPB Q6H [facility] Last Admin: 03/22/17 13:51 Dose: 200 mls/hr Azithromycin 500 mg/ Sodium (Chloride) 250 mls @ 250 mls/hr IVPB DAILY [facility] Last Admin: 03/22/17 09:24 Dose: 250 mls/hr Pneumococcal Polyvalent Vaccine (Pneumovax 23 Vaccine) 0.5 ml IM .ONCE ONE Stop: 03/23/17 10:01 Promethazine HCl/Codeine (Phenergan/Codeine Oral Syrup) 5 ml PO Q4 PRN PRN Reason: Cough Last Admin: 03/22/17 08:41 Dose: 5 ml Saccharomyces Boulardii (Florastor) [address] Last Admin: 03/22/17 09:23 Dose: 250 mg - Labs Labs: 03/22/17 07:05 03/22/17 07:05 PT 13.6 SECONDS (9.7-12.2) H 03/20/17 15:16 INR 1.2 03/20/17 15:16 APTT 33 SECONDS (21-34) 03/20/17 15:16 Assessment and Plan (1) Pneumonia Status: Acute (2) Sepsis Status: Acute
[2017-03-23] MEDS: Piperacillin/Tazobact 3.375 GM in Sodium Chloride 100 ML IVPB SCH ×4 (01:40→22:13)
[2017-03-23] MEDS: Albuterol-Ipratrop 3 mg / 0.5 (3 ml) UD INH SCH ×4 (02:02→19:05)
[2017-03-23 08:26] LABS: BASO # 0.1 K/uL (0.0-0.2); EOS # 0.1 K/uL (0.0-0.7); HEMATOCRIT 35.2 % (35.0-51.0); LYMPH # 1.1 K/uL (1.0-4.3); MONO # 1.3 K/uL (0.0-0.8)
[2017-03-23 08:31] LABS: CHLORIDE 104 mmol/L (98-107); SODIUM 138 mmol/L (132-148)
[2017-03-23 08:32] LABS: POTASSIUM 3.5 mmol/L (3.6-5.2)
[2017-03-23 08:33] LABS: GFR AFRICAN-AMERICAN > 60
[2017-03-23 08:34] LABS: ALB/GLOB RATIO 0.9 (1.0-2.1); ALKALINE PHOSPHATASE 132 U/L (38-126); ALT/SGPT 69 U/L (21-72); AST/SGOT 50 U/L (17-59); BILIRUBIN,TOTAL 0.8 mg/dL (0.2-1.3); BLOOD UREA NITROGEN 4 mg/dL (9-20); CARBON DIOXIDE 25 mmol/L (22-30); GLUCOSE,RANDOM 96 mg/dL (75-110); PHOSPHOROUS 2.3 mg/dL (2.5-4.5); TOTAL PROTEIN 6.3 g/dL (6.3-8.3)
[2017-03-23 08:35] LABS: CALCIUM 8.1 mg/dl (8.6-10.4); MAGNESIUM 1.9 mg/dL (1.6-2.3)
[2017-03-23 08:44] LABS: EOS % 1.5 % (0.0-4.0); LYMPH % 12.4 % (20.0-40.0); MEAN CELL VOLUME 84.2 fL (80.0-94.0); MEAN CORPUSCULAR HEMOGLOBIN 28.7 pg (27.0-31.0); MEAN CORPUSCULAR HGB CONC 34.1 g/dL (33.0-37.0); MEAN PLATELET VOLUME 8.9 fL (7.2-11.7); MONO % 14.1 % (0.0-10.0); RED CELL DISTRIBUTION WIDTH 13.9 % (11.5-14.5)
[2017-03-23] MEDS: Azithromycin 500 MG in Sodium Chloride 0.9% 250 ML IVPB SCH (09:35)
[2017-03-23] MEDS: guaiFENesin 600 mg ER Tab PO SCH ×2 (09:36→18:39)
[2017-03-23] MEDS: Enoxaparin 30 mg Syringe SC SCH (09:36)
[2017-03-23] MEDS: Saccharomyces Boulardi 250 mg Cap PO SCH ×2 (09:36→18:39)
[2017-03-23] MEDS ORDERED: Pneumococcal 23-Valent Vaccine IM ONE (10:00)
[2017-03-23] MEDS ORDERED: Potassium Chloride 20 mEq ER Tab PO ONE (10:53)
--- NOTE | 2017-03-23 16:18 | CP.PCM.PN ---
<Lisa Esteban DO - Last Filed: 03/23/17 15:57> Subjective - Date & Time of Evaluation Date of Evaluation: 03/23/17 Time of Evaluation: 09:00 - Subjective Subjective: Medicine progress note for Dr. Gonzalez: Patient seen and examined. Patient afebrile overnight. Denies n/v/d. Objective - Vital Signs/Intake and Output Vital Signs (last 24 hours): Temp Pulse Resp BP Pulse Ox 98.2 F 74 18 119/76 96 03/23/17 07:30 03/23/17 08:00 03/23/17 07:30 03/23/17 07:30 03/23/17 07:30 Intake and Output: 03/23/17 03/23/17 06:59 18:59 Intake Total 900 Output Total 920 Balance -20 - Medications Medications: Current Medications Acetaminophen (Tylenol 325mg Tab) 650 mg PO Q6 PRN PRN Reason: Fever >100.4 F Last Admin: 03/22/17 13:58 Dose: 650 mg Albuterol/Ipratropium (Duoneb 3 Mg/0.5 Mg (3 Ml) Ud) 3 ml INH RQ6 [facility] Last Admin: 03/23/17 13:09 Dose: 3 ml Docusate Sodium (Colace) 100 mg PO BID [facility] Last Admin: 03/23/17 09:36 Dose: 100 mg Enoxaparin Sodium (Lovenox) 30 mg SC DAILY [facility] Last Admin: 03/23/17 09:36 Dose: 30 mg Famotidine (Pepcid) 20 mg PO BID [facility] Last Admin: 03/23/17 09:36 Dose: 20 mg Guaifenesin (Mucinex La) 600 mg PO BID [facility] Last Admin: 03/23/17 09:36 Dose: 600 mg Piperacillin Sod/Tazobactam (Sod 3.375 gm/ Sodium Chloride) 100 mls @ 200 mls/ hr IVPB Q6H [facility] Last Admin: 03/23/17 13:47 Dose: 200 mls/hr Azithromycin 500 mg/ Sodium (Chloride) 250 mls @ 250 mls/hr IVPB DAILY [facility] Last Admin: 03/23/17 09:35 Dose: 250 mls/hr Promethazine HCl/Codeine (Phenergan/Codeine Oral Syrup) 5 ml PO Q4 PRN PRN Reason: Cough Last Admin: 03/22/17 22:17 Dose: 5 ml Saccharomyces Boulardii (Florastor) [address] Last Admin: 03/23/17 09:36 Dose: 250 mg - Labs Labs: 03/23/17 08:40 03/23/17 08:00 PT 13.6 SECONDS (9.7-12.2) H 03/20/17 15:16 INR 1.2 03/20/17 15:16 APTT 33 SECONDS (21-34) 03/20/17 15:16 - Constitutional Appears: No Acute Distress - Head Exam Head Exam: ATRAUMATIC, NORMOCEPHALIC - Eye Exam Eye Exam: EOMI - ENT Exam ENT Exam: Mucous Membranes Moist - Respiratory Exam Respiratory Exam: Rhonchi (LLL) - Cardiovascular Exam Cardiovascular Exam: +S1, +S2 - GI/Abdominal Exam GI & Abdominal Exam: Tenderness (mild RUQ), Normal Bowel Sounds. absent: Rigid - Extremities Exam Extremities Exam: Normal Inspection. absent: Pedal Edema - Neurological Exam Neurological Exam: Alert, Awake - Psychiatric Exam Psychiatric exam: Normal Affect - Skin Skin Exam: Dry, Warm Assessment and Plan - Assessment and Plan (Free Text) Assessment: Pneumonia * Afebrile 24h * next fever spike --> order blood culture * Lactate 2.2, repeat lactate: 0.7 (03/20) * Leukocytosis absent (WBC: 9.0 on 03/23) * Procalcitonin: 0.23 * Medication: * Tylenol 650mg PO Q6H PRN * Duonebs Q6 PRN * Discontinued Azithromycin 500mg IV 24H and Rocephin 1gm IV daily on (03/20) * Zosyn 3.375 g IVPB Q6H * Flagyl 500 mg/100 ml IVPB Q8H * CXR: left upper lobe pneumonia (03/20) * CT chest, abdomen, and pelvis : Numerous calcified right hilar lymph nodes. Subcarinal soft tissue measuring maximally 4.3 x 3.1 cm, presumably adenopathy.Extensive left upper lobe consolidation. Recommend follow-up to complete resolution.Small bfib-[id number]-right pleural effusions. Hypoattenuation of the liver compatible with hepatic steatosis. Moderate constipation. Small bowel wall thickening may be related to enteritis. * Pulmonary consult (Dr. Lomas) - recs appreciated. calls placed again to answering service * F/U ID consult (Dr. Thomas) * f/u quantiferon * PT eval RUQ pain * Zosyn and flagyl as described above * F/U Surgery Consult (Dr. Castaneda) - no surgical intervention indicated * RUQ US: fatty liver infiltration, no gallstones, negative sonographic bourgeois sign * GI consult (Carole) - Sounds like musculoskeletal. Doubt GB disease. Sono- no stones. Doubt PUD. Doubt reql enteritis. No diarrhea. No enteritis pain. * Hep panel negative * GI signed off RIGGINS * precipitated by coughing * Head CT: no acute intracranial pathology noted Cough * Incentive spirometry * Mucinex 600 mg PO * Promethazine/codiene 5ml PO q4 Sepsis * Resolving * Possibly secondary to pneumonia * Febrile, Tmax: Febrile, Tmax: 105.3 * HR: 110, Max: 112 * Lactate 2.2, repeat lactate: 0.7 * Blood, throat, and urine culture negative Prophylactic measure * SCDS * Lovenox 30mg SC daily * Pepcid 20mg PO BID * Florastor 250mg PO BID * respiratory isolation <Kandy Gonzalez V - Last Filed: 03/24/17 17:34> Objective - Vital Signs/Intake and Output Vital Signs (last 24 hours): Temp Pulse Resp BP Pulse Ox 98.4 F 87 20 118/78 96 03/24/17 15:00 03/24/17 15:00 03/24/17 15:00 03/24/17 15:00 03/24/17 15:00 Intake and Output: 03/24/17 03/24/17 06:59 18:59 Intake Total 720 Balance 720 - Medications Medications: Current Medications Albuterol/Ipratropium (Duoneb 3 Mg/0.5 Mg (3 Ml) Ud) 3 ml INH RQ6 [facility] Last Admin: 03/24/17 13:39 Dose: 3 ml Docusate Sodium (Colace) 100 mg PO BID [facility] Last Admin: 03/24/17 10:27 Dose: 100 mg Enoxaparin Sodium (Lovenox) 30 mg SC DAILY [facility] Last Admin: 03/24/17 10:27 Dose: 30 mg Famotidine (Pepcid) 20 mg PO BID [facility] Last Admin: 03/24/17 10:27 Dose: 20 mg Guaifenesin (Mucinex La) 600 mg PO BID [facility] Last Admin: 03/24/17 10:27 Dose: 600 mg Piperacillin Sod/Tazobactam (Sod 3.375 gm/ Sodium Chloride) 100 mls @ 200 mls/ hr IVPB Q6H [facility] Last Admin: 03/24/17 14:03 Dose: 200 mls/hr Azithromycin 500 mg/ Sodium (Chloride) 250 mls @ 250 mls/hr IVPB DAILY [facility] Last Admin: 03/24/17 10:27 Dose: 250 mls/hr Promethazine HCl/Codeine (Phenergan/Codeine Oral Syrup) 5 ml PO Q4 PRN PRN Reason: Cough Last Admin: 03/22/17 22:17 Dose: 5 ml Saccharomyces Boulardii (Florastor) 250 mg PO BID [facility] Last Admin: 03/24/17 10:27 Dose: 250 mg - Labs Labs: 03/24/17 07:30 03/24/17 07:30 PT 13.6 SECONDS (9.7-12.2) H 03/20/17 15:16 INR 1.2 03/20/17 15:16 APTT 33 SECONDS (21-34) 03/20/17 15:16 Attending/Attestation - Attestation I have personally seen and examined this patient.: Yes I have fully participated in the care of the patient.: Yes I have reviewed all pertinent clinical information, including history, physical exam and plan: Yes Notes (Text): This is late computer entry for 03/23/17. Patient seen, examined and case discussed with day-time resident. Patient seen during morning rounds. Patient reports he is feeling good. Discussed with nurse, Micki, patient has provided 1st sample for AFB which was already sent down and 2nd one is at bedside. Pending recommendations by pulmonary-->resident has called answering service today-->patient may need bronchoscopy f/u AFB Q 8 hours (3), quantaferon-gold r/o TB, patient does not personally smoke but lives with people who smoke (2nd hand smoke) Will continue with IV abx for pneumonia Assessment/Plan 1) Sepsis * Criteria: Febrile Tmax: 105.3, tachycardia, source: pneumonia; Lactate acid: 2.2-->0.7; patient does not fulfill code sepsis * Infectious Disease (Dr. Michaud) on board-->help appreciated * Pulmonary (Dr. Lomas) consult-->f/u recommendations * NS @ 100mls/hr * Procalcitonin: 0.23 * F/U Blood, throat, and urine cultures--.>remain negative * IV abx: Zosyn 3.375 IV Q 6hours (active since 03/20/17) and Flagyl 500mg IV Q 8H (active since 03/20/17) * RUQ US (03/20/17): fatty liver infiltration, no gallstones, negative sonographic bourgeois sign * CT Chest/Abdomen/Pelvis: extensive left upper lobe consolidation. Recommend follow-up to complete resolution, small left greater than right pleural effusions. Hypoattenuation of the liver compatible with hepatic steatosis. Moderate constipation, small bowel wall thickening may be related to enteritis. Numerous calcified right hilar lymph nodes. Subcarinal soft tissue measuring 4.3 X3.1cm, presumably adenopathy 2) Pneumonia * Infectious Disease (Dr. Michaud) on board-->help appreciated * Pulmonary (Dr. Lomas) consult-->f/u recommendations * NS @ 100mls/hr * Procalcitonin: 0.23 * IV Abx: Zosyn 3.375 g IVPB Q6H (active since 03/20/17) and Flagyl 500mg IV Q 8 hours (03/20/17) * CXR: left upper lobe pneumonia (03/20) * CT Chest/Abdomen/Pelvis: extensive left upper lobe consolidation. Recommend follow-up to complete resolution, small left greater than right pleural effusions. Hypoattenuation of the liver compatible with hepatic steatosis. Moderate constipation, small bowel wall thickening may be related to enteritis. Numerous calcified right hilar lymph nodes. Subcarinal soft tissue measuring 4.3 X3.1cm, presumably adenopathy * Will order for urine Legionella, mycoplasma Igm, Strep pneumoniae * Incentive spirometry * Mucinex 600mg PO bid * Promethazine/Codeine 5ml PO Q 4hr PRN cough * Placed on airbone as a precaution r/o TB * AFB sputums Q 8 (3) * Quantaferon gold ordered 3) RUQ pain * On my exam, patient has positive Bourgeois's sign-->ordered for abdominal US/CT Chest/Abdomen/Pelvis and general surgery consult given +bourgeois's sign on 03/20/17 * CT Chest/Abdomen/Pelvis: extensive left upper lobe consolidation. Recommend follow-up to complete resolution, small left greater than right pleural effusions. Hypoattenuation of the liver compatible with hepatic steatosis. Moderate constipation, small bowel wall thickening may be related to enteritis. Numerous calcified right hilar lymph nodes. Subcarinal soft tissue measuring 4.3 X3.1cm, presumably adenopathy * General surgery (Dr. Castaneda) -->help appreciated * no surgical intervention * GI consult (Dr. Lam) on consult--> help appreciated * sounds muscluoskeletal; signed off * RUQ US: fatty liver infiltration, no gallstones, negative sonographic bourgeois sign * Hepatitis panel negative 4) Prophylactic measure * SCDS * Lovenox 30mg SC daily * Pepcid 20mg PO BID * Florastor 250mg PO BID
[2017-03-24] MEDS: Albuterol-Ipratrop 3 mg / 0.5 (3 ml) UD INH SCH ×4 (01:12→19:34)
[2017-03-24] MEDS: Piperacillin/Tazobact 3.375 GM in Sodium Chloride 100 ML IVPB SCH ×4 (02:06→20:00)
[2017-03-24 07:37] LABS: BASO # 0.1 K/uL (0.0-0.2); BASO % 1.3 % (0.0-2.0); EOS # 0.2 K/uL (0.0-0.7); EOS % 2.1 % (0.0-4.0); HEMATOCRIT 36.3 % (35.0-51.0); LYMPH # 1.3 K/uL (1.0-4.3); MEAN CELL VOLUME 84.3 fL (80.0-94.0); MEAN CORPUSCULAR HEMOGLOBIN 28.8 pg (27.0-31.0); MEAN CORPUSCULAR HGB CONC 34.2 g/dL (33.0-37.0); MEAN PLATELET VOLUME 8.8 fL (7.2-11.7); MONO # 1.2 K/uL (0.0-0.8); MONO % 13.7 % (0.0-10.0); NRBC % 0.1 % (0.0-2.0); RED CELL DISTRIBUTION WIDTH 14.1 % (11.5-14.5); WHITE BLOOD COUNT 8.9 K/uL (4.8-10.8)
[2017-03-24 07:49] LABS: ALKALINE PHOSPHATASE 157 U/L (38-126); ALT/SGPT 94 U/L (21-72); AST/SGOT 63 U/L (17-59); BILIRUBIN,TOTAL 0.8 mg/dL (0.2-1.3); BLOOD UREA NITROGEN 5 mg/dL (9-20); CALCIUM 8.7 mg/dl (8.6-10.4); CARBON DIOXIDE 22 mmol/L (22-30); CHLORIDE 98 mmol/L (98-107); GFR AFRICAN-AMERICAN > 60; GLUCOSE,RANDOM 93 mg/dL (75-110); MAGNESIUM 2.1 mg/dL (1.6-2.3); PHOSPHOROUS 2.9 mg/dL (2.5-4.5); POTASSIUM 3.9 mmol/L (3.6-5.2); SODIUM 133 mmol/L (132-148); TOTAL PROTEIN 6.5 g/dL (6.3-8.3)
[2017-03-24] MEDS: guaiFENesin 600 mg ER Tab PO SCH ×2 (10:27→18:23)
[2017-03-24] MEDS: Azithromycin 500 MG in Sodium Chloride 0.9% 250 ML IVPB SCH (10:27)
[2017-03-24] MEDS: Enoxaparin 30 mg Syringe SC SCH (10:27)
[2017-03-24] MEDS: Saccharomyces Boulardi 250 mg Cap PO SCH ×2 (10:27→18:23)
--- NOTE | 2017-03-24 12:34 | CP.PCM.CON ---
History of Present Illness - History of Present Illness History of Present Illness: 10 day h/o uri [employer], no weight loss, no cough no sputum, no sweats currently, lives in [facility] since 1990 travel to [facility] 2013 no h/o TB in family Review of Systems - Review of Systems All systems: reviewed and no additional remarkable complaints except Past Patient History - Infectious Disease Hx of Infectious Diseases: None - Past Medical History & Family History Past Medical History?: No - Past Social History Smoking Status: Never Smoked Alcohol: Occasional Drugs: Denies - MUSCULOSKELETAL/RHEUMATOLOGICAL Hx Falls: No - PSYCHIATRIC Hx Substance Use: No - SURGICAL HISTORY Hx Surgeries: No - ANESTHESIA Hx Anesthesia: No Meds Allergies/Adverse Reactions: Allergies Allergy/AdvReac Type Severity Reaction Status Date / Time No Known Allergies Allergy Verified 03/19/17 23:57 - Medications Medications: Current Medications Acetaminophen (Tylenol 325mg Tab) 650 mg PO Q6 PRN PRN Reason: Fever >100.4 F Last Admin: 03/22/17 13:58 Dose: 650 mg Albuterol/Ipratropium (Duoneb 3 Mg/0.5 Mg (3 Ml) Ud) 3 ml INH RQ6 [facility] Last Admin: 03/24/17 08:03 Dose: 3 ml Docusate Sodium (Colace) 100 mg PO BID [facility] Last Admin: 03/24/17 10:27 Dose: 100 mg Enoxaparin Sodium (Lovenox) 30 mg SC DAILY [facility] Last Admin: 03/24/17 10:27 Dose: 30 mg Famotidine (Pepcid) 20 mg PO BID [facility] Last Admin: 03/24/17 10:27 Dose: 20 mg Guaifenesin (Mucinex La) 600 mg PO BID [facility] Last Admin: 03/24/17 10:27 Dose: 600 mg Piperacillin Sod/Tazobactam (Sod 3.375 gm/ Sodium Chloride) 100 mls @ 200 mls/ hr IVPB Q6H [facility] Last Admin: 03/24/17 08:25 Dose: 200 mls/hr Azithromycin 500 mg/ Sodium (Chloride) 250 mls @ 250 mls/hr IVPB DAILY [facility] Last Admin: 03/24/17 10:27 Dose: 250 mls/hr Promethazine HCl/Codeine (Phenergan/Codeine Oral Syrup) 5 ml PO Q4 PRN PRN Reason: Cough Last Admin: 03/22/17 22:17 Dose: 5 ml Saccharomyces Boulardii (Florastor) [address] Last Admin: 03/24/17 10:27 Dose: 250 mg Physical Exam - Constitutional Appears: No Acute Distress - Head Exam Head Exam: ATRAUMATIC, NORMOCEPHALIC - Eye Exam Eye Exam: Normal appearance - ENT Exam ENT Exam: Mucous Membranes Moist - Respiratory Exam Respiratory Exam: Rales Additional comments: bronchial breath sounds STEPHANIE - Cardiovascular Exam Cardiovascular Exam: +S1, +S2 - GI/Abdominal Exam GI & Abdominal Exam: Normal Bowel Sounds - Rectal Exam Rectal Exam: Deferred - Neurological Exam Neurological exam: Alert, Oriented x3 - Psychiatric Exam Psychiatric exam: Normal Affect, Normal Mood - Skin Skin Exam: Intact Results - Vital Signs Recent Vital Signs: Last Vital Signs Temp 98.4 F 03/24/17 08:53 Pulse 74 03/24/17 08:53 Resp 18 03/24/17 08:53 BP 117/78 03/24/17 08:53 Pulse Ox 97 03/24/17 08:53 - Labs Result Diagrams: 03/24/17 07:30 03/24/17 07:30 Labs: Laboratory Results - last 24 hr 03/24/17 03/24/17 07:30 07:30 WBC 8.9 RBC 4.31 L Hgb 12.4 Hct 36.3 MCV 84.3 MCH 28.8 MCHC 34.2 RDW 14.1 Plt Count 292 MPV 8.8 Neut % (Auto) 68.9 Lymph % (Auto) 14.0 L Sweet [place] % (Auto) 13.7 H Eos % (Auto) 2.1 Baso % (Auto) 1.3 Neut # 6.2 Lymph # 1.3 Sweet [place] # 1.2 H Eos # 0.2 Baso # 0.1 Sodium 133 Potassium 3.9 Chloride 98 Carbon Dioxide 22 Anion Gap 17 BUN 5 L Creatinine 0.6 L Est GFR ( Amer) > 60 Est GFR (Non-Af Amer) > 60 Random Glucose 93 Calcium 8.7 Phosphorus 2.9 Magnesium 2.1 Total Bilirubin 0.8 AST 63 H D ALT 94 H D Alkaline Phosphatase 157 H Total Protein 6.5 Albumin 3.2 L Globulin 3.3 Albumin/Globulin Ratio 1.0 Assessment & Plan (1) Pneumonia Status: Acute Comment: await quant gold for tb; if positive then wound proceed with bronchoscopy to r/o active tb
--- NOTE | 2017-03-24 14:31 | CP.PCM.PN ---
Subjective - Date & Time of Evaluation Date of Evaluation: 03/24/17 Time of Evaluation: 09:00 - Subjective Subjective: temps down slowly improving seen by pulm antibiotics reordered Objective - Vital Signs/Intake and Output Vital Signs (last 24 hours): Temp Pulse Resp BP Pulse Ox 98.4 F 74 18 117/78 97 03/24/17 08:53 03/24/17 08:53 03/24/17 08:53 03/24/17 08:53 03/24/17 08:53 Intake and Output: 03/24/17 03/24/17 06:59 18:59 Intake Total 720 Balance 720 - Medications Medications: Current Medications Albuterol/Ipratropium (Duoneb 3 Mg/0.5 Mg (3 Ml) Ud) 3 ml INH RQ6 [facility] Last Admin: 03/24/17 13:39 Dose: 3 ml Docusate Sodium (Colace) 100 mg PO BID [facility] Last Admin: 03/24/17 10:27 Dose: 100 mg Enoxaparin Sodium (Lovenox) 30 mg SC DAILY [facility] Last Admin: 03/24/17 10:27 Dose: 30 mg Famotidine (Pepcid) 20 mg PO BID [facility] Last Admin: 03/24/17 10:27 Dose: 20 mg Guaifenesin (Mucinex La) 600 mg PO BID [facility] Last Admin: 03/24/17 10:27 Dose: 600 mg Piperacillin Sod/Tazobactam (Sod 3.375 gm/ Sodium Chloride) 100 mls @ 200 mls/ hr IVPB Q6H [facility] Last Admin: 03/24/17 14:03 Dose: 200 mls/hr Azithromycin 500 mg/ Sodium (Chloride) 250 mls @ 250 mls/hr IVPB DAILY [facility] Last Admin: 03/24/17 10:27 Dose: 250 mls/hr Promethazine HCl/Codeine (Phenergan/Codeine Oral Syrup) 5 ml PO Q4 PRN PRN Reason: Cough Last Admin: 03/22/17 22:17 Dose: 5 ml Saccharomyces Boulardii (Florastor) 250 mg PO BID [facility] Last Admin: 03/24/17 10:27 Dose: 250 mg - Labs Labs: 03/24/17 07:30 03/24/17 07:30 PT 13.6 SECONDS (9.7-12.2) H 03/20/17 15:16 INR 1.2 03/20/17 15:16 APTT 33 SECONDS (21-34) 03/20/17 15:16 - Constitutional Appears: Non-toxic, Chronically Ill - Head Exam Head Exam: NORMOCEPHALIC - Eye Exam Eye Exam: PERRL. absent: Scleral icterus - ENT Exam ENT Exam: Mucous Membranes Dry - Neck Exam Neck Exam: absent: Lymphadenopathy - Respiratory Exam Respiratory Exam: Decreased Breath Sounds - Cardiovascular Exam Cardiovascular Exam: REGULAR RHYTHM - GI/Abdominal Exam GI & Abdominal Exam: Distended, Soft Assessment and Plan (1) Pneumonia Status: Acute (2) Sepsis Status: Acute - Assessment and Plan (Free Text) Assessment: cont empiric iv antibiotics
--- NOTE | 2017-03-24 14:53 | CP.PCM.PN ---
<Lisa Esteban DO - Last Filed: 03/24/17 14:51> Subjective - Date & Time of Evaluation Date of Evaluation: 03/24/17 Time of Evaluation: 09:10 - Subjective Subjective: Medicine progress note for Dr. Gonzalez Patient seen and examined. Patient states he is not coughing too much anymore. Patient using incentive spirometer and demonstrated proper use. Patient eating well, denies complaints of chest pain, nausea, vomiting, diarrhea. Objective - Vital Signs/Intake and Output Vital Signs (last 24 hours): Temp Pulse Resp BP Pulse Ox 98.4 F 74 18 117/78 97 03/24/17 08:53 03/24/17 08:53 03/24/17 08:53 03/24/17 08:53 03/24/17 08:53 Intake and Output: 03/24/17 03/24/17 06:59 18:59 Intake Total 720 Balance 720 - Medications Medications: Current Medications Albuterol/Ipratropium (Duoneb 3 Mg/0.5 Mg (3 Ml) Ud) [address] Last Admin: 03/24/17 13:39 Dose: 3 ml Docusate Sodium (Colace) 100 mg PO BID [facility] Last Admin: 03/24/17 10:27 Dose: 100 mg Enoxaparin Sodium (Lovenox) 30 mg SC DAILY [facility] Last Admin: 03/24/17 10:27 Dose: 30 mg Famotidine (Pepcid) 20 mg PO BID [facility] Last Admin: 03/24/17 10:27 Dose: 20 mg Guaifenesin (Mucinex La) 600 mg PO BID [facility] Last Admin: 03/24/17 10:27 Dose: 600 mg Piperacillin Sod/Tazobactam (Sod 3.375 gm/ Sodium Chloride) 100 mls @ 200 mls/ hr IVPB Q6H [facility] Last Admin: 03/24/17 14:03 Dose: 200 mls/hr Azithromycin 500 mg/ Sodium (Chloride) 250 mls @ 250 mls/hr IVPB DAILY [facility] Last Admin: 03/24/17 10:27 Dose: 250 mls/hr Promethazine HCl/Codeine (Phenergan/Codeine Oral Syrup) 5 ml PO Q4 PRN PRN Reason: Cough Last Admin: 03/22/17 22:17 Dose: 5 ml Saccharomyces Boulardii (Florastor) [address] Last Admin: 03/24/17 10:27 Dose: 250 mg Tuberculin PPD (Tubersol) 5 tu ID DAILY@ONCE ONE Stop: 03/24/17 15:01 - Labs Labs: 03/24/17 07:30 03/24/17 07:30 PT 13.6 SECONDS (9.7-12.2) H 03/20/17 15:16 INR 1.2 03/20/17 15:16 APTT 33 SECONDS (21-34) 03/20/17 15:16 - Constitutional Appears: Non-toxic, No Acute Distress - Head Exam Head Exam: ATRAUMATIC, NORMOCEPHALIC - Eye Exam Eye Exam: EOMI - ENT Exam ENT Exam: Mucous Membranes Moist - Respiratory Exam Respiratory Exam: Rhonchi (diffuse bilaterally) - Cardiovascular Exam Cardiovascular Exam: +S1, +S2 - GI/Abdominal Exam GI & Abdominal Exam: Soft, Normal Bowel Sounds. absent: Tenderness - Extremities Exam Extremities Exam: Normal Inspection. absent: Pedal Edema - Neurological Exam Neurological Exam: Alert, Awake - Psychiatric Exam Psychiatric exam: Normal Affect - Skin Skin Exam: Dry, Warm Assessment and Plan - Assessment and Plan (Free Text) Assessment: Pneumonia * Afebrile 24h * next fever spike --> order blood culture * Lactate 2.2, repeat lactate: 0.7 (03/20) * Leukocytosis absent (WBC: 8.9 on 03/24) * Procalcitonin: 0.23 * Medication: * Tylenol 650mg PO Q6H PRN * Duonebs Q6 PRN * Discontinued Azithromycin 500mg IV 24H and Rocephin 1gm IV daily on (03/20) * Zosyn 3.375 g IVPB Q6H * Flagyl 500 mg/100 ml IVPB Q8H * CXR: left upper lobe pneumonia (03/20) * CT chest, abdomen, and pelvis : Numerous calcified right hilar lymph nodes. Subcarinal soft tissue measuring maximally 4.3 x 3.1 cm, presumably adenopathy.Extensive left upper lobe consolidation. Recommend follow-up to complete resolution.Small [id number]-dwzg-right pleural effusions. Hypoattenuation of the liver compatible with hepatic steatosis. Moderate constipation. Small bowel wall thickening may be related to enteritis. * Pulmonary consult (Dr. Lomas) - recs appreciated * if quantiferon positive will proceed with bronchoscopy to rule out active TB * F/U ID consult (Dr. Thomas) * f/u quantiferon * will check PPD * PT eval RUQ pain * Zosyn and flagyl as described above * F/U Surgery Consult (Dr. Castaneda) - no surgical intervention indicated * RUQ US: fatty liver infiltration, no gallstones, negative sonographic bourgeois sign * GI consult (Carole) - Sounds like musculoskeletal. Doubt GB disease. Sono- no stones. Doubt PUD. Doubt reql enteritis. No diarrhea. No enteritis pain. * Hep panel negative * GI signed off RIGGINS * precipitated by coughing * Head CT: no acute intracranial pathology noted Cough * Incentive spirometry * Mucinex 600 mg PO * Promethazine/codiene 5ml PO q4 Sepsis * Resolving * Possibly secondary to pneumonia * Febrile, Tmax: Febrile, Tmax: 105.3 * HR: 110, Max: 112 * Lactate 2.2, repeat lactate: 0.7 * Blood, throat, and urine culture negative Prophylactic measure * SCDS * Lovenox 30mg SC daily * Pepcid 20mg PO BID * Florastor 250mg PO BID * respiratory isolation <Kandy Gonzalez V - Last Filed: 03/24/17 17:40> Objective - Vital Signs/Intake and Output Vital Signs (last 24 hours): Temp Pulse Resp BP Pulse Ox 98.4 F 87 20 118/78 96 03/24/17 15:00 03/24/17 15:00 03/24/17 15:00 03/24/17 15:00 03/24/17 15:00 Intake and Output: 03/24/17 03/24/17 06:59 18:59 Intake Total 720 Balance 720 - Medications Medications: Current Medications Albuterol/Ipratropium (Duoneb 3 Mg/0.5 Mg (3 Ml) Ud) 3 ml INH RQ6 [facility] Last Admin: 03/24/17 13:39 Dose: 3 ml Docusate Sodium (Colace) 100 mg PO BID [facility] Last Admin: 03/24/17 10:27 Dose: 100 mg Enoxaparin Sodium (Lovenox) 30 mg SC DAILY [facility] Last Admin: 03/24/17 10:27 Dose: 30 mg Famotidine (Pepcid) 20 mg PO BID [facility] Last Admin: 03/24/17 10:27 Dose: 20 mg Guaifenesin (Mucinex La) 600 mg PO BID [facility] Last Admin: 03/24/17 10:27 Dose: 600 mg Piperacillin Sod/Tazobactam (Sod 3.375 gm/ Sodium Chloride) 100 mls @ 200 mls/ hr IVPB Q6H [facility] Last Admin: 03/24/17 14:03 Dose: 200 mls/hr Azithromycin 500 mg/ Sodium (Chloride) 250 mls @ 250 mls/hr IVPB DAILY [facility] Last Admin: 03/24/17 10:27 Dose: 250 mls/hr Promethazine HCl/Codeine (Phenergan/Codeine Oral Syrup) 5 ml PO Q4 PRN PRN Reason: Cough Last Admin: 03/22/17 22:17 Dose: 5 ml Saccharomyces Boulardii (Florastor) 250 mg PO BID [facility] Last Admin: 03/24/17 10:27 Dose: 250 mg - Labs Labs: 03/24/17 07:30 03/24/17 07:30 PT 13.6 SECONDS (9.7-12.2) H 03/20/17 15:16 INR 1.2 03/20/17 15:16 APTT 33 SECONDS (21-34) 03/20/17 15:16 Attending/Attestation - Attestation I have personally seen and examined this patient.: Yes I have fully participated in the care of the patient.: Yes I have reviewed all pertinent clinical information, including history, physical exam and plan: Yes Notes (Text): Patient seen, examined and case discussed with day-time resident. Patient seen during morning rounds. Patient reports he is feeling good. Patient reports cough has subsided, and is dry. Patient seen and evaluated by pulm today-->pending quantaferon to determine if bronchoscopy needed Tylenol d/c secondary mildly elevated LFTs patient ordered for PPD-->day time resident to follow-up PPD for read for 03/25/17 Will continue with IV abx for pneumonia Assessment/Plan 1) Sepsis * Admission: Criteria: Febrile Tmax: 105.3, tachycardia, source: pneumonia; Lactate acid: 2.2-->0.7; patient does not fulfill code sepsis * Afebrile for 48 hours * Neurotrophil shift normalized * Infectious Disease (Dr. Michaud) on board-->help appreciated * Pulmonary (Dr. Lomas) consult-->help appreciated * f/u quantaferon to determine bronchoscopy * NS @ 100mls/hr * Procalcitonin: 0.23 * Microbiology * Blood cultures (03/20/17): no growth after 4 days X2 * Throat culture (03/20/17): no beta step group A isolated * Urine culture (03/20/17): no growth after X24 hours * IV abx: Zosyn 3.375 IV Q 6hours (active since 03/20/17) and Flagyl 500mg IV Q 8H (active since 03/20/17) * RUQ US (03/20/17): fatty liver infiltration, no gallstones, negative sonographic bourgeois sign * CT Chest/Abdomen/Pelvis: extensive left upper lobe consolidation. Recommend follow-up to complete resolution, small left greater than right pleural effusions. Hypoattenuation of the liver compatible with hepatic steatosis. Moderate constipation, small bowel wall thickening may be related to enteritis. Numerous calcified right hilar lymph nodes. Subcarinal soft tissue measuring 4.3 X3.1cm, presumably adenopathy 2) Pneumonia * Infectious Disease (Dr. Michaud) on board-->help appreciated * Pulmonary (Dr. Lomas) consult-->help appreciated * Duoneb 3ml Inhaled Q6 hours * NS @ 100mls/hr * Procalcitonin: 0.23 * IV Abx: Zosyn 3.375 g IVPB Q6H (active since 03/20/17) and Azithromycin 500mg IVPB daily (active since 03/22/17) * CXR: left upper lobe pneumonia (03/20) * CT Chest/Abdomen/Pelvis: extensive left upper lobe consolidation. Recommend follow-up to complete resolution, small left greater than right pleural effusions. Hypoattenuation of the liver compatible with hepatic steatosis. Moderate constipation, small bowel wall thickening may be related to enteritis. Numerous calcified right hilar lymph nodes. Subcarinal soft tissue measuring 4.3 X3.1cm, presumably adenopathy * Will order for urine Legionella, mycoplasma Igm, Strep pneumoniae * Incentive spirometry * Mucinex 600mg PO bid * Promethazine/Codeine 5ml PO Q 4hr PRN cough * Urine legionella: negative * Mycoplasma IgM: negative * Placed on airbone as a precaution r/o TB * AFB sputums Q 8 (3) * Quantaferon gold ordered 3) RUQ pain * On my exam, patient has positive Bourgeois's sign-->ordered for abdominal US/CT Chest/Abdomen/Pelvis and general surgery consult given +bourgeois's sign on 03/20/17 * CT Chest/Abdomen/Pelvis: extensive left upper lobe consolidation. Recommend follow-up to complete resolution, small left greater than right pleural effusions. Hypoattenuation of the liver compatible with hepatic steatosis. Moderate constipation, small bowel wall thickening may be related to enteritis. Numerous calcified right hilar lymph nodes. Subcarinal soft tissue measuring 4.3 X3.1cm, presumably adenopathy * General surgery (Dr. Castaneda) -->help appreciated * no surgical intervention * GI consult (Dr. Lam) on consult--> help appreciated * sounds muscluoskeletal; signed off * RUQ US: fatty liver infiltration, no gallstones, negative sonographic bourgeois sign * Hepatitis panel negative 4) Prophylactic measure * SCDS * Lovenox 30mg SC daily * Pepcid 20mg PO BID * Florastor 250mg PO BID
[2017-03-24] MEDS ORDERED: Tuberculin 5 Units/0.1 ml Inj ID ONE ×2 (15:00→17:00)
[2017-03-24] MEDS: Promethazine/Cod 6.25mg-10mg/5ml Syr UD PO PRN (18:28)
[2017-03-25] MEDS: Albuterol-Ipratrop 3 mg / 0.5 (3 ml) UD INH SCH ×4 (01:17→19:22)
--- NOTE | 2017-03-25 01:41 | CP.PCM.PN ---
<Kristin Ennis E - Last Filed: 03/25/17 07:15> Subjective - Date & Time of Evaluation Date of Evaluation: 03/25/17 Time of Evaluation: 00:30 - Subjective Subjective: PGY 1 Medicine Note Patient was seen and examined at bedside in no acute distress. Patient was resting in bed, watching TV. Patient admits to non-productive cough and headache but denies fever, chills, SOB, chest pain, palpitations, nausea and vomiting. Patient reports that he is doing well and has no new complaints. Objective - Vital Signs/Intake and Output Vital Signs (last 24 hours): Temp Pulse Resp BP Pulse Ox 98.4 F 99 H 20 118/78 96 03/24/17 15:00 03/24/17 16:00 03/24/17 15:00 03/24/17 15:00 03/24/17 15:00 Intake and Output: 03/24/17 03/25/17 18:59 06:59 Intake Total 1120 580 Balance 1120 580 - Medications Medications: Current Medications Albuterol/Ipratropium (Duoneb 3 Mg/0.5 Mg (3 Ml) Ud) 3 ml INH RQ6 [facility] Last Admin: 03/25/17 01:17 Dose: Not Given Docusate Sodium (Colace) 100 mg PO BID [facility] Last Admin: 03/24/17 18:23 Dose: 100 mg Enoxaparin Sodium (Lovenox) 30 mg SC DAILY [facility] Last Admin: 03/24/17 10:27 Dose: 30 mg Famotidine (Pepcid) 20 mg PO BID [facility] Last Admin: 03/24/17 18:24 Dose: 20 mg Guaifenesin (Mucinex La) 600 mg PO BID [facility] Last Admin: 03/24/17 18:23 Dose: 600 mg Piperacillin Sod/Tazobactam (Sod 3.375 gm/ Sodium Chloride) 100 mls @ 200 mls/ hr IVPB Q6H [facility] Last Admin: 03/24/17 20:00 Dose: 200 mls/hr Azithromycin 500 mg/ Sodium (Chloride) 250 mls @ 250 mls/hr IVPB DAILY [facility] Last Admin: 03/24/17 10:27 Dose: 250 mls/hr Promethazine HCl/Codeine (Phenergan/Codeine Oral Syrup) 5 ml PO Q4 PRN PRN Reason: Cough Last Admin: 03/24/17 18:28 Dose: 5 ml Saccharomyces Boulardii (Florastor) [address] Last Admin: 03/24/17 18:23 Dose: 250 mg - Labs Labs: 03/24/17 07:30 03/24/17 07:30 PT 13.6 SECONDS (9.7-12.2) H 03/20/17 15:16 INR 1.2 03/20/17 15:16 APTT 33 SECONDS (21-34) 03/20/17 15:16 - Constitutional Appears: Well, No Acute Distress - Head Exam Head Exam: ATRAUMATIC, NORMAL INSPECTION - Eye Exam Eye Exam: EOMI, Normal appearance - Respiratory Exam Respiratory Exam: Clear to Ausculation Bilateral, NORMAL BREATHING PATTERN - Cardiovascular Exam Cardiovascular Exam: REGULAR RHYTHM, +S1, +S2 - GI/Abdominal Exam GI & Abdominal Exam: Soft, Normal Bowel Sounds. absent: Tenderness - Extremities Exam Extremities Exam: Normal Inspection. absent: Calf Tenderness, Tenderness - Neurological Exam Neurological Exam: Alert, Awake, Oriented x3 - Psychiatric Exam Psychiatric exam: Normal Affect, Normal Mood - Skin Skin Exam: Normal Color, Warm Assessment and Plan (1) Pneumonia Assessment & Plan: Afebrile 24h * next fever spike --> order blood culture * Lactate 2.2, repeat lactate: 0.7 (03/20) * Leukocytosis absent (WBC: 8.9 on 03/24) * Procalcitonin: 0.23 * Medication: * Tylenol 650mg PO Q6H PRN * Duonebs Q6 PRN * Discontinued Azithromycin 500mg IV 24H and Rocephin 1gm IV daily on (03/20) * Zosyn 3.375 g IVPB Q6H * Flagyl 500 mg/100 ml IVPB Q8H * CXR: left upper lobe pneumonia (03/20) * CT chest, abdomen, and pelvis : Numerous calcified right hilar lymph nodes. Subcarinal soft tissue measuring maximally 4.3 x 3.1 cm, presumably adenopathy.Extensive left upper lobe consolidation. Recommend follow-up to complete resolution.Small yrgf-athlwyr-ojye-right pleural effusions. Hypoattenuation of the liver compatible with hepatic steatosis. Moderate constipation. Small bowel wall thickening may be related to enteritis. * Pulmonary consult (Dr. Lomas) - recs appreciated * if quantiferon positive will proceed with bronchoscopy to rule out active TB * F/U ID consult (Dr. Thomas) * f/u quantiferon * f/u PPD * PT eval Status: Acute (2) RUQ pain Assessment & Plan: * Zosyn 3.375 g IVPB Q6H * Flagyl 500 mg/100 ml IVPB Q8H * F/U Surgery Consult (Dr. Castaneda) - no surgical intervention indicated * RUQ US: fatty liver infiltration, no gallstones, negative sonographic goel sign * GI consult (Carole) - Sounds like musculoskeletal. Doubt GB disease. Sono- no stones. Doubt PUD. Doubt reql enteritis. No diarrhea. No enteritis pain. * Hep panel negative * GI signed off Status: Acute (3) Cough Assessment & Plan: * Incentive spirometry * Mucinex 600 mg PO * Promethazine/codiene 5ml PO q4 Status: Acute (4) Headache Assessment & Plan: * Precipitated by coughing * Head CT: no acute intracranial pathology noted Status: Acute (5) Sepsis Assessment & Plan: Resolving * Possibly secondary to pneumonia * Febrile, Tmax: Febrile, Tmax: 105.3 * HR: 110, Max: 112 * Lactate 2.2, repeat lactate: 0.7 * Blood, throat, and urine culture negative Status: Acute (6) Prophylactic measure Assessment & Plan: SCDS * Lovenox 30mg SC daily * Pepcid 20mg PO BID * Florastor 250mg PO BID * respiratory isolation Status: Acute <Adolfo Solo - Last Filed: 03/25/17 14:18> Objective - Vital Signs/Intake and Output Vital Signs (last 24 hours): Temp Pulse Resp BP Pulse Ox 98.0 F 77 20 104/65 95 03/25/17 07:40 03/25/17 10:00 03/25/17 07:40 03/25/17 07:40 03/25/17 07:40 Intake and Output: 03/25/17 03/25/17 06:59 18:59 Intake Total 580 Balance 580 - Medications Medications: Current Medications Acetylcysteine (Acetylcysteine 20%) 4 ml INH ONCE ONE Stop: 03/26/17 06:01 Acetylcysteine (Acetylcysteine 20%) 4 ml INH ONCE ONE Stop: 03/27/17 06:01 Acetylcysteine (Acetylcysteine 20%) 4 ml INH ONCE ONE Stop: 03/28/17 06:01 Albuterol/Ipratropium (Duoneb 3 Mg/0.5 Mg (3 Ml) Ud) 3 ml INH RQ6 [facility] Last Admin: 03/25/17 13:24 Dose: 3 ml Docusate Sodium (Colace) 100 mg PO BID [facility] Last Admin: 03/25/17 10:04 Dose: 100 mg Enoxaparin Sodium (Lovenox) 30 mg SC DAILY [facility] Last Admin: 03/25/17 10:05 Dose: 30 mg Famotidine (Pepcid) 20 mg PO BID [facility] Last Admin: 03/25/17 10:04 Dose: 20 mg Guaifenesin (Mucinex La) 600 mg PO BID [facility] Last Admin: 03/25/17 10:05 Dose: 600 mg Piperacillin Sod/Tazobactam (Sod 3.375 gm/ Sodium Chloride) 100 mls @ 200 mls/ hr IVPB Q6H [facility] Last Admin: 03/25/17 13:30 Dose: 200 mls/hr Azithromycin 500 mg/ Sodium (Chloride) 250 mls @ 250 mls/hr IVPB DAILY [facility] Last Admin: 03/25/17 10:05 Dose: 250 mls/hr Promethazine HCl/Codeine (Phenergan/Codeine Oral Syrup) 5 ml PO Q4 PRN PRN Reason: Cough Last Admin: 03/24/17 18:28 Dose: 5 ml Saccharomyces Boulardii (Florastor) 250 mg PO BID [facility] Last Admin: 03/25/17 10:04 Dose: 250 mg - Labs Labs: 03/25/17 06:16 03/25/17 06:16 PT 12.7 SECONDS (9.7-12.2) H 03/25/17 06:16 INR 1.1 03/25/17 06:16 APTT 28 SECONDS (21-34) 03/25/17 06:16 Attending/Attestation - Attestation I have personally seen and examined this patient.: Yes I have fully participated in the care of the patient.: Yes I have reviewed all pertinent clinical information, including history, physical exam and plan: Yes Notes (Text): 03/25/17 14:03 Hospitalist Progress Note Patient was seen and examined at 9:40 PM 03/25/17 Admitted on 03/20/17 with complaints of myalgia, fever, nonproductive cough, palpitations, bilateral eyelid pain. He was seen by the [facility] and started on Augmentin and Tamiflu but without improvement. Chest X Ray revealed left upper lobe pneumonia. U/S showed fatty infiltration of the liver. CT Chest/Abdomen/Pelvis showed numerous calcified right hilar lymph subcarinal soft tissue presumably adenopathy, extensive STEPHANIE consolidation, small right> left pleural effusions, and small bowel thickening maybe related to enteritis. CT Head showed NO acute pathology. Upon FULL ROS: Some swelling sensation in the throat but NO dysphagia/odynophagia NO n/v/d/c Moved his bowels NO chest pain/palpitations Occasional dry nonproductive cough NO other complaints upon FULL ROS Exam: General: AAOx3, NAD HEENT: NCA, EOMI, PERRLA, NO lymphadenopathy, NO thyromegaly, (+) Erythematous Pharynx but NO exudate and NO Lymphadenopathy in the cervical/submandibular/ supraclavicular lymphadenopathy Cardio: NS1 and NS2, NO M/R/G Respiratory: CTA B/L, NO R/R/W GI: BSx4, Soft, Central Obesity therefore Liver and Spleen could not be adequately palpated, NO guarding/rebound tenderness Ext: Bilateral Pulses UE and LE are strong and equal, Capillary Refill is 2 seconds, NO edema. Right Anterior Forearm with raised erythematous area measuring 13 mm (site of PPD placed on 03/24/17) Neuro: CN II through XII are grossly intact Assessments: 1). STEPHANIE Pneumonia Quantiferon Gold is pending F/U PPD read on 03/26/17 at 4 PM Respiratory Isolation Sputum x 3 induced with Mucomyst 03/26/17 through 03/28/17 Zosyn and Azithromycin Blood Culture 03/20/17 is negative to date Urine Culture 03/20/17 shows NO growth Throat Culture 03/20/[address] Thomas 2). RUQ Pain NO evidence of gallbladder pathology on U/S See results of CT Abdomen/Pelvis in HPI above Surgery Team Dr. Castaneda: no surgical intervention at this time GI Dr. Lam/Claudette: no further workup at this time Hepatitis Panel is negative Likely musculoskeletal 3). RIGGINS NO longer having this and could have been linked to his coughing upon presentation CT Head was unremarkable 4). Constipation Colace He is moving his bowels 5). Elevated LFTs Monitor Hepatitis Panel is negative 6). Prophylaxis: Lovenox, Pepcid, Guaifensin, Promethazine/Codeine, Florastor Adolfo Solo D.O.
[2017-03-25] MEDS: Piperacillin/Tazobact 3.375 GM in Sodium Chloride 100 ML IVPB SCH ×4 (02:57→20:48)
[2017-03-25 06:32] LABS: INR 1.1
[2017-03-25 06:46] LABS: ALB/GLOB RATIO 0.9 (1.0-2.1); ALKALINE PHOSPHATASE 156 U/L (38-126); ALT/SGPT 98 U/L (21-72); AST/SGOT 63 U/L (17-59); BILIRUBIN,TOTAL 0.7 mg/dL (0.2-1.3); BLOOD UREA NITROGEN 5 mg/dL (9-20); CALCIUM 9.2 mg/dl (8.6-10.4); CARBON DIOXIDE 24 mmol/L (22-30); CHLORIDE 100 mmol/L (98-107); GFR AFRICAN-AMERICAN > 60; GLUCOSE,RANDOM 100 mg/dL (75-110); POTASSIUM 4.2 mmol/L (3.6-5.2); SODIUM 135 mmol/L (132-148); TOTAL PROTEIN 6.6 g/dL (6.3-8.3)
[2017-03-25 06:49] LABS: BASO # 0.1 K/uL (0.0-0.2); BASO % 1.3 % (0.0-2.0); EOS # 0.3 K/uL (0.0-0.7); EOS % 2.9 % (0.0-4.0); HEMATOCRIT 37.5 % (35.0-51.0); LYMPH # 1.2 K/uL (1.0-4.3); MEAN CELL VOLUME 84.7 fL (80.0-94.0); MEAN CORPUSCULAR HEMOGLOBIN 29.1 pg (27.0-31.0); MEAN CORPUSCULAR HGB CONC 34.4 g/dL (33.0-37.0); MEAN PLATELET VOLUME 8.8 fL (7.2-11.7); MONO # 1.1 K/uL (0.0-0.8); MONO % 12.6 % (0.0-10.0); NRBC % 0.1 % (0.0-2.0); RED CELL DISTRIBUTION WIDTH 13.9 % (11.5-14.5); WHITE BLOOD COUNT 8.9 K/uL (4.8-10.8)
[2017-03-25] MEDS: Saccharomyces Boulardi 250 mg Cap PO SCH ×2 (10:04→17:56)
[2017-03-25] MEDS: Enoxaparin 30 mg Syringe SC SCH (10:05)
[2017-03-25] MEDS: guaiFENesin 600 mg ER Tab PO SCH ×2 (10:05→17:56)
[2017-03-25] MEDS: Azithromycin 500 MG in Sodium Chloride 0.9% 250 ML IVPB SCH (10:05)
[2017-03-26] MEDS: Albuterol-Ipratrop 3 mg / 0.5 (3 ml) UD INH SCH ×4 (01:29→20:46)
[2017-03-26] MEDS: Piperacillin/Tazobact 3.375 GM in Sodium Chloride 100 ML IVPB SCH ×4 (01:59→19:49)
[2017-03-26] MEDS ORDERED: Acetylcysteine 20% Inhal Soln (4ml) INH ONE (06:00)
--- NOTE | 2017-03-26 07:28 | CP.PCM.PN ---
<Lisa Shipman - Last Filed: 03/26/17 14:03> Subjective - Date & Time of Evaluation Date of Evaluation: 03/26/17 Time of Evaluation: 07:27 - Subjective Subjective: Pt seen and examined at bedside. Patient in no acute distress. Patient was resting in bed with a breathing treatment. Patient admits to non-productive cough and headache but denies fever, chills, SOB, chest pain, palpitations, nausea and vomiting. Patient reports that he is doing well and has no new complaints other than some fullness in his throat that he has trouble explaining. Pt denies throat pain. Objective - Vital Signs/Intake and Output Vital Signs (last 24 hours): Temp Pulse Resp BP Pulse Ox 98.5 F 65 20 114/71 95 03/25/17 23:30 03/26/17 04:23 03/25/17 23:30 03/25/17 23:30 03/25/17 23:30 - Medications Medications: Current Medications Acetylcysteine (Acetylcysteine 20%) 4 ml INH ONCE ONE Stop: 03/27/17 06:01 Acetylcysteine (Acetylcysteine 20%) 4 ml INH ONCE ONE Stop: 03/28/17 06:01 Albuterol/Ipratropium (Duoneb 3 Mg/0.5 Mg (3 Ml) Ud) 3 ml INH RQ6 [facility] Last Admin: 03/26/17 07:23 Dose: 3 ml Docusate Sodium (Colace) 100 mg PO BID [facility] Last Admin: 03/25/17 17:55 Dose: 100 mg Enoxaparin Sodium (Lovenox) 30 mg SC DAILY [facility] Last Admin: 03/25/17 10:05 Dose: 30 mg Famotidine (Pepcid) 20 mg PO BID [facility] Last Admin: 03/25/17 17:56 Dose: 20 mg Guaifenesin (Mucinex La) 600 mg PO BID [facility] Last Admin: 03/25/17 17:56 Dose: 600 mg Piperacillin Sod/Tazobactam (Sod 3.375 gm/ Sodium Chloride) 100 mls @ 200 mls/ hr IVPB Q6H [facility] Last Admin: 03/26/17 07:02 Dose: 200 mls/hr Azithromycin 500 mg/ Sodium (Chloride) 250 mls @ 250 mls/hr IVPB DAILY [facility] Last Admin: 03/25/17 10:05 Dose: 250 mls/hr Promethazine HCl/Codeine (Phenergan/Codeine Oral Syrup) 5 ml PO Q4 PRN PRN Reason: Cough Last Admin: 03/24/17 18:28 Dose: 5 ml Saccharomyces Boulardii (Florastor) 250 mg PO BID [facility] Last Admin: 03/25/17 17:56 Dose: 250 mg - Labs Labs: 03/25/17 06:16 03/25/17 06:16 PT 12.7 SECONDS (9.7-12.2) H 03/25/17 06:16 INR 1.1 03/25/17 06:16 APTT 28 SECONDS (21-34) 03/25/17 06:16 - Constitutional Appears: No Acute Distress - Head Exam Head Exam: NORMAL INSPECTION - Eye Exam Eye Exam: EOMI - ENT Exam ENT Exam: Mucous Membranes Moist - Respiratory Exam Respiratory Exam: Rhonchi (b/l), Wheezes (b/l), NORMAL BREATHING PATTERN. absent: Respiratory Distress - Cardiovascular Exam Cardiovascular Exam: REGULAR RHYTHM, +S1, +S2 - GI/Abdominal Exam GI & Abdominal Exam: Soft. absent: Distended, Tenderness - Extremities Exam Extremities Exam: absent: Calf Tenderness, Joint Swelling - Neurological Exam Neurological Exam: Alert, Awake - Psychiatric Exam Psychiatric exam: Normal Affect, Normal Mood - Skin Skin Exam: Dry, Intact, Normal Color, Warm Assessment and Plan - Assessment and Plan (Free Text) Assessment: (1) Pneumonia Afebrile 24h * next fever spike --> order blood culture * Lactate 2.2, repeat lactate: 0.7 (03/20) * Leukocytosis absent (WBC: 8.9 on 03/24) * Procalcitonin: 0.23 * Medication: * Tylenol 650mg PO Q6H PRN * Duonebs Q6 PRN * Discontinued Azithromycin 500mg IV 24H and Rocephin 1gm IV daily on (03/20) * Zosyn 3.375 g IVPB Q6H * Flagyl 500 mg/100 ml IVPB Q8H * CXR: left upper lobe pneumonia (03/20) * CT chest, abdomen, and pelvis : Numerous calcified right hilar lymph nodes. Subcarinal soft tissue measuring maximally 4.3 x 3.1 cm, presumably adenopathy.Extensive left upper lobe consolidation. Recommend follow-up to complete resolution.Small ojci-xdoosmo-eqew-right pleural effusions. Hypoattenuation of the liver compatible with hepatic steatosis. Moderate constipation. Small bowel wall thickening may be related to enteritis. * Pulmonary consult (Dr. Lomas) - if quant gold positive, proceed with bronchoscopy to r/o active tb * if quantiferon positive will proceed with bronchoscopy to rule out active TB * ID consult (Dr. Thomas) * f/u quantiferon * PPD checked 03/25/17 * Prelim sputum culture neg for acid fast bacilli x 2 * PT eval (2) RUQ pain * Zosyn 3.375 g IVPB Q6H * Flagyl 500 mg/100 ml IVPB Q8H * F/U Surgery Consult (Dr. Castaneda) - no surgical intervention indicated * RUQ US: fatty liver infiltration, no gallstones, negative sonographic goel sign * GI consult (Carole) - Sounds like musculoskeletal. Doubt GB disease. Sono- no stones. Doubt PUD. Doubt reql enteritis. No diarrhea. No enteritis pain. * Hep panel negative * GI signed off (3) Cough * Incentive spirometry * Mucinex 600 mg PO * Promethazine/codiene 5ml PO q4 (4) Headache * Precipitated by coughing * Head CT: no acute intracranial pathology noted (5) Sepsis Resolving * Possibly secondary to pneumonia * Febrile, Tmax: Febrile, Tmax: 105.3 * HR: 110, Max: 112 * Lactate 2.2, repeat lactate: 0.7 * Blood, throat, and urine culture negative (6) Prophylactic measure SCDS * Lovenox 30mg SC daily * Pepcid 20mg PO BID * Florastor 250mg PO BID * respiratory isolation <Adolfo Solo - Last Filed: 03/26/17 17:54> Objective - Vital Signs/Intake and Output Vital Signs (last 24 hours): Temp Pulse Resp BP Pulse Ox 97.9 F 78 20 104/68 98 03/26/17 15:00 03/26/17 15:00 03/26/17 15:00 03/26/17 15:00 03/26/17 15:00 Intake and Output: 03/26/17 03/26/17 06:59 18:59 Intake Total 550 Balance 550 - Medications Medications: Current Medications Acetylcysteine (Acetylcysteine 20%) 4 ml INH ONCE ONE Stop: 03/27/17 06:01 Acetylcysteine (Acetylcysteine 20%) 4 ml INH ONCE ONE Stop: 03/28/17 06:01 Albuterol/Ipratropium (Duoneb 3 Mg/0.5 Mg (3 Ml) Ud) 3 ml INH RQ6 [facility] Last Admin: 03/26/17 13:12 Dose: Not Given Docusate Sodium (Colace) 100 mg PO BID [facility] Last Admin: 03/26/17 17:28 Dose: 100 mg Enoxaparin Sodium (Lovenox) 30 mg SC DAILY [facility] Last Admin: 03/26/17 09:11 Dose: 30 mg Famotidine (Pepcid) 20 mg PO BID [facility] Last Admin: 03/26/17 17:28 Dose: 20 mg Guaifenesin (Mucinex La) 600 mg PO BID [facility] Last Admin: 03/26/17 17:28 Dose: 600 mg Piperacillin Sod/Tazobactam (Sod 3.375 gm/ Sodium Chloride) 100 mls @ 200 mls/ hr IVPB Q6H [facility] Last Admin: 03/26/17 13:18 Dose: 200 mls/hr Azithromycin 500 mg/ Sodium (Chloride) 250 mls @ 250 mls/hr IVPB DAILY [facility] Last Admin: 03/26/17 09:14 Dose: 250 mls/hr Promethazine HCl/Codeine (Phenergan/Codeine Oral Syrup) 5 ml PO Q4 PRN PRN Reason: Cough Last Admin: 03/26/17 12:09 Dose: 5 ml Saccharomyces Boulardii (Florastor) 250 mg PO BID [facility] Last Admin: 03/26/17 17:28 Dose: 250 mg - Labs Labs: 03/26/17 07:24 03/26/17 07:24 PT 12.7 SECONDS (9.7-12.2) H 03/25/17 06:16 INR 1.1 03/25/17 06:16 APTT 28 SECONDS (21-34) 03/25/17 06:16 Attending/Attestation - Attestation I have personally seen and examined this patient.: Yes I have fully participated in the care of the patient.: Yes I have reviewed all pertinent clinical information, including history, physical exam and plan: Yes Notes (Text): 03/26/17 17:48 Hospitalist Progress Note Patient was seen and examined at 1:00 PM 03/26/17 Admitted on 03/20/17 with complaints of myalgia, fever, nonproductive cough, palpitations, bilateral eyelid pain. He was seen by the [facility] and started on Augmentin and Tamiflu but without improvement. Chest X Ray revealed left upper lobe pneumonia. U/S showed fatty infiltration of the liver. CT Chest/Abdomen/Pelvis showed numerous calcified right hilar lymph subcarinal soft tissue presumably adenopathy, extensive STEPHANIE consolidation, small right> left pleural effusions, and small bowel thickening maybe related to enteritis. CT Head showed NO acute pathology. Please see Assessment and Plans below for details Upon FULL ROS: Some swelling sensation in the throat but NO dysphagia/odynophagia NO n/v/d/c Moved his bowels and states that it was black today (monitor HgB/Hct for now) NO chest pain/palpitations Occasional dry nonproductive cough NO other complaints upon FULL ROS Exam: General: AAOx3, NAD HEENT: NCA, EOMI, PERRLA, NO lymphadenopathy, NO thyromegaly, (+) Erythematous Pharynx but NO exudate and NO Lymphadenopathy in the cervical/submandibular/ supraclavicular lymphadenopathy Cardio: NS1 and NS2, NO M/R/G Respiratory: CTA B/L, NO R/R/W GI: BSx4, Soft, Central Obesity therefore Liver and Spleen could not be adequately palpated, NO guarding/rebound tenderness Ext: Bilateral Pulses UE and LE are strong and equal, Capillary Refill is 2 seconds, NO edema. Right Anterior Forearm with raised erythematous area measuring 13 mm (site of PPD placed on 03/24/17) Neuro: CN II through XII are grossly intact Assessments: 1). STEPHANIE Pneumonia Quantiferon Gold is pending PPD read on 03/26/17 showed 18 mm induration and erythema: patient stated that he had unspecified vaccination for TB in [facility] 30 years ago Respiratory Isolation Sputum x 3 induced with Mucomyst 03/26/17 through 03/28/17 Zosyn and Azithromycin Blood Culture 03/20/17 is negative to date Urine Culture 03/20/17 shows NO growth Throat Culture 03/20/17 is negative Mycobacterium Preliminary 03/23/17 and 03/24/17 shows NO AFB Low Grade 99 fever at 7:45 AM 03/26/[address] Thomas 2). RUQ Pain NO evidence of gallbladder pathology on U/S See results of CT Abdomen/Pelvis in HPI above Surgery Team Dr. Castaneda: no surgical intervention at this time GI Dr. Lam/Claudette: no further workup at this time Hepatitis Panel is negative Likely musculoskeletal 3). RIGGINS NO longer having this and could have been linked to his coughing upon presentation CT Head was unremarkable 4). Constipation Colace He is moving his bowels 5). Elevated LFTs Monitor Hepatitis Panel is negative Abdominal U/S did not show any evidence of Cholelithiasis/Cholecystitis and shows Fatty Infiltration of the Liver 6). Prophylaxis: Lovenox, Pepcid, Guaifensin, Promethazine/Codeine, Florastor Adolfo Solo D.O.
[2017-03-26 07:37] LABS: BASO # 0.1 K/uL (0.0-0.2); BASO % 1.5 % (0.0-2.0); EOS # 0.3 K/uL (0.0-0.7); EOS % 3.1 % (0.0-4.0); HEMATOCRIT 37.6 % (35.0-51.0); LYMPH # 1.3 K/uL (1.0-4.3); LYMPH % 14.8 % (20.0-40.0); MEAN CELL VOLUME 85.6 fL (80.0-94.0); MEAN CORPUSCULAR HGB CONC 33.8 g/dL (33.0-37.0); MEAN PLATELET VOLUME 8.6 fL (7.2-11.7); MONO # 1.1 K/uL (0.0-0.8); MONO % 12.9 % (0.0-10.0); RED CELL DISTRIBUTION WIDTH 14.3 % (11.5-14.5); WHITE BLOOD COUNT 8.7 K/uL (4.8-10.8)
[2017-03-26 08:03] LABS: CHLORIDE 102 mmol/L (98-107); POTASSIUM 4.4 mmol/L (3.6-5.2); SODIUM 141 mmol/L (132-148)
[2017-03-26 08:05] LABS: BILIRUBIN,TOTAL 0.6 mg/dL (0.2-1.3); GFR AFRICAN-AMERICAN > 60
[2017-03-26 08:06] LABS: ALKALINE PHOSPHATASE 156 U/L (38-126); ALT/SGPT 100 U/L (21-72); AST/SGOT 56 U/L (17-59); BLOOD UREA NITROGEN 8 mg/dL (9-20); CARBON DIOXIDE 24 mmol/L (22-30); GLUCOSE,RANDOM 92 mg/dL (75-110); TOTAL PROTEIN 7.2 g/dL (6.3-8.3)
[2017-03-26 08:07] LABS: CALCIUM 8.9 mg/dl (8.6-10.4)
[2017-03-26] MEDS: guaiFENesin 600 mg ER Tab PO SCH ×2 (09:11→17:28)
[2017-03-26] MEDS: Saccharomyces Boulardi 250 mg Cap PO SCH ×2 (09:11→17:28)
[2017-03-26] MEDS: Enoxaparin 30 mg Syringe SC SCH (09:11)
[2017-03-26] MEDS: Azithromycin 500 MG in Sodium Chloride 0.9% 250 ML IVPB SCH (09:14)
[2017-03-26] MEDS: Promethazine/Cod 6.25mg-10mg/5ml Syr UD PO PRN ×2 (12:09→19:55)
[2017-03-27] MEDS: Piperacillin/Tazobact 3.375 GM in Sodium Chloride 100 ML IVPB SCH ×4 (01:17→19:44)
[2017-03-27] MEDS: Albuterol-Ipratrop 3 mg / 0.5 (3 ml) UD INH SCH ×4 (01:45→19:11)
[2017-03-27] MEDS ORDERED: Acetylcysteine 20% Inhal Soln (4ml) INH ONE (06:00)
[2017-03-27 06:36] LABS: BASO # 0.1 K/uL (0.0-0.2); BASO % 1.4 % (0.0-2.0); EOS # 0.3 K/uL (0.0-0.7); EOS % 2.5 % (0.0-4.0); HEMATOCRIT 35.5 % (35.0-51.0); LYMPH # 1.6 K/uL (1.0-4.3); LYMPH % 14.6 % (20.0-40.0); MEAN CELL VOLUME 85.6 fL (80.0-94.0); MEAN CORPUSCULAR HEMOGLOBIN 29.1 pg (27.0-31.0); MEAN PLATELET VOLUME 8.4 fL (7.2-11.7); MONO # 1.6 K/uL (0.0-0.8); MONO % 14.6 % (0.0-10.0); WHITE BLOOD COUNT 10.9 K/uL (4.8-10.8)
--- NOTE | 2017-03-27 07:18 | CP.PCM.PN ---
<Lisa Shipman - Last Filed: 03/27/17 17:07> Subjective - Date & Time of Evaluation Date of Evaluation: 03/27/17 Time of Evaluation: 07:15 - Subjective Subjective: Pt seen and examined at bedside. Patient in no acute distress. Patient was resting in bed comfortably. Patient admits to non-productive cough and feeling hot but denies fever, chills, SOB, chest pain, palpitations, nausea, vomiting, diarrhea, and constipation. Objective - Vital Signs/Intake and Output Vital Signs (last 24 hours): Temp Pulse Resp BP Pulse Ox 98.2 F 79 20 116/76 96 03/26/17 23:25 03/27/17 04:06 03/26/17 23:25 03/26/17 23:25 03/26/17 23:25 - Medications Medications: Current Medications Acetylcysteine (Acetylcysteine 20%) 4 ml INH ONCE ONE Stop: 03/28/17 06:01 Albuterol/Ipratropium (Duoneb 3 Mg/0.5 Mg (3 Ml) Ud) [address] Last Admin: 03/27/17 01:45 Dose: 3 ml Docusate Sodium (Colace) 100 mg PO BID [facility] Last Admin: 03/26/17 17:28 Dose: 100 mg Enoxaparin Sodium (Lovenox) 30 mg SC DAILY [facility] Last Admin: 03/26/17 09:11 Dose: 30 mg Famotidine (Pepcid) 20 mg PO BID [facility] Last Admin: 03/26/17 17:28 Dose: 20 mg Guaifenesin (Mucinex La) 600 mg PO BID [facility] Last Admin: 03/26/17 17:28 Dose: 600 mg Piperacillin Sod/Tazobactam (Sod 3.375 gm/ Sodium Chloride) 100 mls @ 200 mls/ hr IVPB Q6H [facility] Last Admin: 03/27/17 07:02 Dose: 200 mls/hr Azithromycin 500 mg/ Sodium (Chloride) 250 mls @ 250 mls/hr IVPB DAILY [facility] Last Admin: 03/26/17 09:14 Dose: 250 mls/hr Promethazine HCl/Codeine (Phenergan/Codeine Oral Syrup) 5 ml PO Q4 PRN PRN Reason: Cough Last Admin: 03/26/17 19:55 Dose: 5 ml Saccharomyces Boulardii (Florastor) [address] Last Admin: 03/26/17 17:28 Dose: 250 mg - Labs Labs: 03/27/17 06:18 03/26/17 07:24 PT 12.7 SECONDS (9.7-12.2) H 03/25/17 06:16 INR 1.1 03/25/17 06:16 APTT 28 SECONDS (21-34) 03/25/17 06:16 - Constitutional Appears: Non-toxic, No Acute Distress - Head Exam Head Exam: NORMAL INSPECTION - Eye Exam Eye Exam: EOMI - ENT Exam ENT Exam: Mucous Membranes Moist - Respiratory Exam Respiratory Exam: Clear to Ausculation Bilateral, NORMAL BREATHING PATTERN - Cardiovascular Exam Cardiovascular Exam: REGULAR RHYTHM, +S1, +S2 - GI/Abdominal Exam GI & Abdominal Exam: Soft, Normal Bowel Sounds. absent: Distended, Tenderness - Extremities Exam Extremities Exam: Normal Inspection. absent: Calf Tenderness, Pedal Edema - Back Exam Additional comments: Blotchy erythema of upper back without pruritis. Patient thinks this is 2/2 to feeling warm. - Neurological Exam Neurological Exam: Alert, Awake, Oriented x3 - Psychiatric Exam Psychiatric exam: Normal Affect, Normal Mood - Skin Skin Exam: Dry, Intact, Warm Assessment and Plan - Assessment and Plan (Free Text) Assessment: (1) Pneumonia Afebrile 24h * next fever spike --> order blood culture * Lactate 2.2, repeat lactate: 0.7 (03/20) * Leukocytosis: WBC 10.9 (03/27) and previously absent * Procalcitonin: 0.23 * Medication: * Tylenol 650mg PO Q6H PRN * Duonebs Q6 PRN * Discontinued Rocephin 1gm IV daily on (03/20) and flagyl * Zosyn 3.375 g IVPB Q6H * Azithromycin 500 mg IV QD * CXR: left upper lobe pneumonia (03/20) * CT chest, abdomen, and pelvis : Numerous calcified right hilar lymph nodes. Subcarinal soft tissue measuring maximally 4.3 x 3.1 cm, presumably adenopathy.Extensive left upper lobe consolidation. Recommend follow-up to complete resolution.Small sqax-bjgbmdt-lchj-right pleural effusions. Hypoattenuation of the liver compatible with hepatic steatosis. Moderate constipation. Small bowel wall thickening may be related to enteritis. * Pulmonary consult (Dr. Lomas) - if quant gold positive, proceed with bronchoscopy to r/o active tb * if quantiferon positive will proceed with bronchoscopy to rule out active TB * ID consult (Dr. Thomas) * f/u quantiferon * PPD checked 03/25/17 - 18 mm * Prelim sputum culture neg for acid fast bacilli x 2 * PT eval (2) RUQ pain * Zosyn 3.375 g IVPB Q6H * Flagyl 500 mg/100 ml IVPB Q8H * F/U Surgery Consult (Dr. Castaneda) - no surgical intervention indicated * RUQ US: fatty liver infiltration, no gallstones, negative sonographic goel sign * GI consult (Carole) - Sounds like musculoskeletal. Doubt GB disease. Sono- no stones. Doubt PUD. Doubt reql enteritis. No diarrhea. No enteritis pain. * Hep panel negative * GI signed off (3) Cough * Incentive spirometry * Mucinex 600 mg PO * Promethazine/codiene 5ml PO q4 (4) Headache * Precipitated by coughing * Head CT: no acute intracranial pathology noted (5) Sepsis Resolving * Possibly secondary to pneumonia * Febrile, Tmax: Febrile, Tmax: 105.3 * HR: 110, Max: 112 * Lactate 2.2, repeat lactate: 0.7 * Blood, throat, and urine culture negative (6) Prophylactic measure SCDS * Lovenox 30mg SC daily * Pepcid 20mg PO BID * Florastor 250mg PO BID * respiratory isolation <Adolfo Solo - Last Filed: 03/27/17 17:37> Objective - Vital Signs/Intake and Output Vital Signs (last 24 hours): Temp Pulse Resp BP Pulse Ox 100.6 F H 81 20 102/66 96 03/27/17 15:00 03/27/17 15:00 03/27/17 15:00 03/27/17 15:00 03/27/17 15:00 Intake and Output: 03/27/17 03/27/17 06:59 18:59 Intake Total 630 Balance 630 - Medications Medications: Current Medications Acetylcysteine (Acetylcysteine 20%) 4 ml INH ONCE ONE Stop: 03/28/17 06:01 Albuterol/Ipratropium (Duoneb 3 Mg/0.5 Mg (3 Ml) Ud) 3 ml INH RQ6 [facility] Last Admin: 03/27/17 13:10 Dose: 3 ml Docusate Sodium (Colace) 100 mg PO BID [facility] Last Admin: 03/27/17 09:02 Dose: 100 mg Enoxaparin Sodium (Lovenox) 30 mg SC DAILY [facility] Last Admin: 03/27/17 09:02 Dose: 30 mg Famotidine (Pepcid) 20 mg PO BID [facility] Last Admin: 03/27/17 09:02 Dose: 20 mg Guaifenesin (Mucinex La) 600 mg PO BID [facility] Last Admin: 03/27/17 09:02 Dose: 600 mg Piperacillin Sod/Tazobactam (Sod 3.375 gm/ Sodium Chloride) 100 mls @ 200 mls/ hr IVPB Q6H [facility] Last Admin: 03/27/17 13:18 Dose: 200 mls/hr Azithromycin 500 mg/ Sodium (Chloride) 250 mls @ 250 mls/hr IVPB DAILY [facility] Last Admin: 03/27/17 09:05 Dose: 250 mls/hr Promethazine HCl/Codeine (Phenergan/Codeine Oral Syrup) 5 ml PO Q4 PRN PRN Reason: Cough Last Admin: 03/26/17 19:55 Dose: 5 ml Saccharomyces Boulardii (Florastor) 250 mg PO BID [facility] Last Admin: 03/27/17 09:02 Dose: 250 mg - Labs Labs: 03/27/17 06:18 03/27/17 06:18 PT 12.7 SECONDS (9.7-12.2) H 03/25/17 06:16 INR 1.1 03/25/17 06:16 APTT 28 SECONDS (21-34) 03/25/17 06:16 Attending/Attestation - Attestation I have personally seen and examined this patient.: Yes I have fully participated in the care of the patient.: Yes I have reviewed all pertinent clinical information, including history, physical exam and plan: Yes Notes (Text): 03/27/17 17:35 Hospitalist Progress Note Patient was seen and examined at 2 PM 03/27/17 Admitted on 03/20/17 with complaints of myalgia, fever, nonproductive cough, palpitations, bilateral eyelid pain. He was seen by the [facility] and started on Augmentin and Tamiflu but without improvement. Chest X Ray revealed left upper lobe pneumonia. U/S showed fatty infiltration of the liver. CT Chest/Abdomen/Pelvis showed numerous calcified right hilar lymph subcarinal soft tissue presumably adenopathy, extensive STEPHANIE consolidation, small right> left pleural effusions, and small bowel thickening maybe related to enteritis. CT Head showed NO acute pathology. Please see Assessment and Plans below for details Upon FULL ROS: Some swelling sensation in the throat but NO dysphagia/odynophagia NO n/v/d/c Moved his bowels and states that it was black 03/26/17 but not today (monitor HgB/ Hct for now) NO chest pain/palpitations Occasional dry nonproductive cough NO other complaints upon FULL ROS Exam: General: AAOx3, NAD HEENT: NCA, EOMI, PERRLA, NO lymphadenopathy, NO thyromegaly, (+) Erythematous Pharynx but NO exudate and NO Lymphadenopathy in the cervical/submandibular/ supraclavicular lymphadenopathy Cardio: NS1 and NS2, NO M/R/G Respiratory: CTA B/L, NO R/R/W GI: BSx4, Soft, Central Obesity therefore Liver and Spleen could not be adequately palpated, NO guarding/rebound tenderness Ext: Bilateral Pulses UE and LE are strong and equal, Capillary Refill is 2 seconds, NO edema. Right Anterior Forearm with raised erythematous area measuring 13 mm (site of PPD placed on 03/24/17) Neuro: CN II through XII are grossly intact Assessments: 1). STEPHANIE Pneumonia Quantiferon Gold is pending PPD read on 03/26/17 showed 18 mm induration and erythema: patient stated that he had unspecified vaccination for TB in [facility] 30 years ago Respiratory Isolation Sputum x 3 induced with Mucomyst 03/26/17 through 03/28/17 Zosyn and Azithromycin Blood Culture 03/20/17 is negative to date Urine Culture 03/20/17 shows NO growth Throat Culture 03/20/17 is negative Mycobacterium Preliminary 03/23/17 and 03/24/17 shows NO AFB. NO sputum was sent on 03/25/17. Sputum sent on 03/26/17 and 03/27/17 Low Grade 99 fever at 7:45 AM 03/26/[address] Mangia 2). RUQ Pain NO evidence of gallbladder pathology on U/S See results of CT Abdomen/Pelvis in HPI above Surgery Team Dr. Castaneda: no surgical intervention at this time GI Dr. Lam/Claudette: no further workup at this time Hepatitis Panel is negative Likely musculoskeletal 3). RIGGINS NO longer having this and could have been linked to his coughing upon presentation CT Head was unremarkable 4). Constipation Colace He is moving his bowels 5). Elevated LFTs Monitor: they are trending down Hepatitis Panel is negative Abdominal U/S did not show any evidence of Cholelithiasis/Cholecystitis and shows Fatty Infiltration of the Liver 6). Prophylaxis: Lovenox, Pepcid, Guaifensin, Promethazine/Codeine, Florastor Adolfo Solo D.O.
[2017-03-27 07:33] LABS: CHLORIDE 101 mmol/L (98-107); SODIUM 136 mmol/L (132-148)
[2017-03-27 07:36] LABS: BILIRUBIN,TOTAL 0.6 mg/dL (0.2-1.3); CARBON DIOXIDE 25 mmol/L (22-30); GFR AFRICAN-AMERICAN > 60
[2017-03-27 07:37] LABS: ALKALINE PHOSPHATASE 138 U/L (38-126); ALT/SGPT 93 U/L (21-72); AST/SGOT 47 U/L (17-59); BLOOD UREA NITROGEN 9 mg/dL (9-20); CALCIUM 8.9 mg/dl (8.6-10.4); GLUCOSE,RANDOM 96 mg/dL (75-110); TOTAL PROTEIN 7.1 g/dL (6.3-8.3)
[2017-03-27] MEDS: Saccharomyces Boulardi 250 mg Cap PO SCH ×2 (09:02→18:37)
[2017-03-27] MEDS: guaiFENesin 600 mg ER Tab PO SCH ×2 (09:02→18:37)
[2017-03-27] MEDS: Enoxaparin 30 mg Syringe SC SCH (09:02)
[2017-03-27] MEDS: Azithromycin 500 MG in Sodium Chloride 0.9% 250 ML IVPB SCH (09:05)
--- NOTE | 2017-03-27 16:32 | CP.PCM.PN ---
Subjective - Date & Time of Evaluation Date of Evaluation: 03/27/17 Time of Evaluation: 09:00 - Subjective Subjective: febrile again may need FOB all serologies/ cultures negative PPD+ Objective - Vital Signs/Intake and Output Vital Signs (last 24 hours): Temp Pulse Resp BP Pulse Ox 100.6 F H 81 20 102/66 96 03/27/17 15:00 03/27/17 15:00 03/27/17 15:00 03/27/17 15:00 03/27/17 15:00 Intake and Output: 03/27/17 03/27/17 06:59 18:59 Intake Total 630 Balance 630 - Medications Medications: Current Medications Acetylcysteine (Acetylcysteine 20%) 4 ml INH ONCE ONE Stop: 03/28/17 06:01 Albuterol/Ipratropium (Duoneb 3 Mg/0.5 Mg (3 Ml) Ud) 3 ml INH RQ6 [facility] Last Admin: 03/27/17 13:10 Dose: 3 ml Docusate Sodium (Colace) 100 mg PO BID [facility] Last Admin: 03/27/17 09:02 Dose: 100 mg Enoxaparin Sodium (Lovenox) 30 mg SC DAILY [facility] Last Admin: 03/27/17 09:02 Dose: 30 mg Famotidine (Pepcid) 20 mg PO BID [facility] Last Admin: 03/27/17 09:02 Dose: 20 mg Guaifenesin (Mucinex La) 600 mg PO BID [facility] Last Admin: 03/27/17 09:02 Dose: 600 mg Piperacillin Sod/Tazobactam (Sod 3.375 gm/ Sodium Chloride) 100 mls @ 200 mls/ hr IVPB Q6H [facility] Last Admin: 03/27/17 13:18 Dose: 200 mls/hr Azithromycin 500 mg/ Sodium (Chloride) 250 mls @ 250 mls/hr IVPB DAILY [facility] Last Admin: 03/27/17 09:05 Dose: 250 mls/hr Promethazine HCl/Codeine (Phenergan/Codeine Oral Syrup) 5 ml PO Q4 PRN PRN Reason: Cough Last Admin: 03/26/17 19:55 Dose: 5 ml Saccharomyces Boulardii (Florastor) 250 mg PO BID [facility] Last Admin: 03/27/17 09:02 Dose: 250 mg - Labs Labs: 03/27/17 06:18 03/27/17 06:18 PT 12.7 SECONDS (9.7-12.2) H 03/25/17 06:16 INR 1.1 03/25/17 06:16 APTT 28 SECONDS (21-34) 03/25/17 06:16 Assessment and Plan (1) Pneumonia Status: Acute (2) Sepsis Status: Acute
[2017-03-27] MEDS: Promethazine/Cod 6.25mg-10mg/5ml Syr UD PO PRN (19:57)
[2017-03-28] MEDS: Piperacillin/Tazobact 3.375 GM in Sodium Chloride 100 ML IVPB SCH ×4 (01:37→20:45)
[2017-03-28] MEDS: Albuterol-Ipratrop 3 mg / 0.5 (3 ml) UD INH SCH ×4 (01:43→19:08)
[2017-03-28] MEDS ORDERED: Acetylcysteine 20% Inhal Soln (4ml) INH ONE (06:00)
[2017-03-28 07:44] LABS: BASO # 0.1 K/uL (0.0-0.2); BASO % 1.2 % (0.0-2.0); EOS # 0.3 K/uL (0.0-0.7); EOS % 2.6 % (0.0-4.0); HEMATOCRIT 35.6 % (35.0-51.0); LYMPH # 1.4 K/uL (1.0-4.3); MEAN CELL VOLUME 84.7 fL (80.0-94.0); MEAN CORPUSCULAR HEMOGLOBIN 29.1 pg (27.0-31.0); MEAN CORPUSCULAR HGB CONC 34.4 g/dL (33.0-37.0); MEAN PLATELET VOLUME 8.3 fL (7.2-11.7); MONO # 1.4 K/uL (0.0-0.8); MONO % 12.4 % (0.0-10.0); WHITE BLOOD COUNT 11.7 K/uL (4.8-10.8)
[2017-03-28 08:01] LABS: ALB/GLOB RATIO 0.9 (1.0-2.1); ALKALINE PHOSPHATASE 140 U/L (38-126); ALT/SGPT 80 U/L (21-72); AST/SGOT 38 U/L (17-59); BILIRUBIN,TOTAL 0.6 mg/dL (0.2-1.3); BLOOD UREA NITROGEN 9 mg/dL (9-20); CALCIUM 9.2 mg/dl (8.6-10.4); CARBON DIOXIDE 23 mmol/L (22-30); CHLORIDE 101 mmol/L (98-107); GFR AFRICAN-AMERICAN > 60; GLUCOSE,RANDOM 103 mg/dL (75-110); POTASSIUM 4.2 mmol/L (3.6-5.2); SODIUM 139 mmol/L (132-148); TOTAL PROTEIN 7.2 g/dL (6.3-8.3)
[2017-03-28] MEDS: Azithromycin 500 MG in Sodium Chloride 0.9% 250 ML IVPB SCH (09:28)
[2017-03-28] MEDS: Enoxaparin 30 mg Syringe SC SCH (09:29)
[2017-03-28] MEDS: Saccharomyces Boulardi 250 mg Cap PO SCH ×2 (09:29→18:08)
[2017-03-28] MEDS: guaiFENesin 600 mg ER Tab PO SCH ×2 (09:29→18:08)
--- NOTE | 2017-03-28 17:50 | CP.PCM.PN ---
Subjective - Date & Time of Evaluation Date of Evaluation: 03/28/17 Time of Evaluation: 16:00 - Subjective Subjective: Patient was seen and examined at 4 PM 03/28/17 Admitted on 03/20/17 with complaints of myalgia, fever, nonproductive cough, palpitations, bilateral eyelid pain. He was seen by the [facility] and started on Augmentin and Tamiflu but without improvement. Chest X Ray revealed left upper lobe pneumonia. U/S showed fatty infiltration of the liver. CT Chest/Abdomen/Pelvis showed numerous calcified right hilar lymph subcarinal soft tissue presumably adenopathy, extensive STEPHANIE consolidation, small right> left pleural effusions, and small bowel thickening maybe related to enteritis. CT Head showed NO acute pathology. Please see Assessment and Plans below for details Upon FULL ROS: Swelling sensation in the throat has resolved NO dysphagia/odynophagia NO n/v/d/c Moved his bowels and states that it was black 03/26/17 but not today 03/28/17( monitor HgB/Hct for now) NO chest pain/palpitations Occasional dry nonproductive cough NO other complaints upon FULL ROS Exam: General: AAOx3, NAD HEENT: NCA, EOMI, PERRLA, NO lymphadenopathy, NO thyromegaly, (+) Erythematous Pharynx but NO exudate and NO Lymphadenopathy in the cervical/submandibular/ supraclavicular lymphadenopathy Cardio: NS1 and NS2, NO M/R/G Respiratory: CTA B/L, NO R/R/W GI: BSx4, Soft, Central Obesity therefore Liver and Spleen could not be adequately palpated, NO guarding/rebound tenderness Ext: Bilateral Pulses UE and LE are strong and equal, Capillary Refill is 2 seconds, NO edema. Right Anterior Forearm with raised erythematous area measuring 13 mm (site of PPD placed on 03/24/17) Neuro: CN II through XII are grossly intact Assessments: 1). STEPHANIE Pneumonia Quantiferon Gold is positive: I have called Ply Splicer Dr. Lomas's office and again provided patient information/location and provided information to parole officer that we would like Dr. Lomas (who was consulted on ) to see the patient and make his recommendation concerning possible treatment for TB. ID Dr. Burgess was made aware of the results and he too has deferred to Pulmonology concerning this issue. PPD read on 03/26/17 showed 18 mm induration and erythema: patient stated that he had unspecified vaccination for TB in [facility] 30 years ago Respiratory Isolation Sputum x 3 induced with Mucomyst 03/26/17 through 03/28/17 Zosyn and Azithromycin Blood Culture 03/20/17 is negative to date Urine Culture 03/20/17 shows NO growth Throat Culture 03/20/17 is negative Mycobacterium Preliminary 03/23/17 and 03/24/17 shows NO AFB. NO sputum was sent on 03/25/17. Sputum sent on 03/26/17 and 03/27/17 Low Grade 99 fever at 7:45 AM 03/26/[address] Thomas 2). RUQ Pain NO evidence of gallbladder pathology on U/S See results of CT Abdomen/Pelvis in HPI above Surgery Team Dr. Castaneda: no surgical intervention at this time GI Dr. Lam/Claudette: no further workup at this time Hepatitis Panel is negative Likely musculoskeletal 3). RIGGINS NO longer having this and could have been linked to his coughing upon presentation CT Head was unremarkable 4). Constipation Colace He is moving his bowels 5). Elevated LFTs Monitor: they are trending down Hepatitis Panel is negative Abdominal U/S did not show any evidence of Cholelithiasis/Cholecystitis and shows Fatty Infiltration of the Liver 6). Prophylaxis: Lovenox, Pepcid, Guaifensin, Promethazine/Codeine, Florastor Adolfo Solo D.OConsuelo Objective - Vital Signs/Intake and Output Vital Signs (last 24 hours): Temp Pulse Resp BP Pulse Ox 98.3 F 78 20 106/67 97 03/28/17 16:24 03/28/17 16:24 03/28/17 16:24 03/28/17 16:24 03/28/17 16:24 Intake and Output: 03/28/17 03/28/17 06:59 18:59 Intake Total 580 450 Balance 580 450 - Medications Medications: Current Medications Albuterol/Ipratropium (Duoneb 3 Mg/0.5 Mg (3 Ml) Ud) [address] Last Admin: 03/28/17 13:59 Dose: Not Given Docusate Sodium (Colace) 100 mg PO BID [facility] Last Admin: 03/28/17 09:29 Dose: Not Given Enoxaparin Sodium (Lovenox) 30 mg SC DAILY [facility] Last Admin: 03/28/17 09:29 Dose: 30 mg Famotidine (Pepcid) 20 mg PO BID [facility] Last Admin: 03/28/17 09:29 Dose: 20 mg Guaifenesin (Mucinex La) 600 mg PO BID [facility] Last Admin: 03/28/17 09:29 Dose: 600 mg Piperacillin Sod/Tazobactam (Sod 3.375 gm/ Sodium Chloride) 100 mls @ 200 mls/ hr IVPB Q6H [facility] Last Admin: 03/28/17 14:42 Dose: 200 mls/hr Azithromycin 500 mg/ Sodium (Chloride) 250 mls @ 250 mls/hr IVPB DAILY [facility] Last Admin: 03/28/17 09:28 Dose: 250 mls/hr Promethazine HCl/Codeine (Phenergan/Codeine Oral Syrup) 5 ml PO Q4 PRN PRN Reason: Cough Last Admin: 03/27/17 19:57 Dose: 5 ml Saccharomyces Boulardii (Florastor) 250 mg PO BID [facility] Last Admin: 03/28/17 09:29 Dose: 250 mg - Labs Labs: 03/28/17 07:35 03/28/17 07:35 PT 12.7 SECONDS (9.7-12.2) H 03/25/17 06:16 INR 1.1 03/25/17 06:16 APTT 28 SECONDS (21-34) 03/25/17 06:16
[2017-03-28] MEDS: Promethazine/Cod 6.25mg-10mg/5ml Syr UD PO PRN (18:14)
--- NOTE | 2017-03-28 19:02 | CP.PCM.PN ---
Subjective - Date & Time of Evaluation Date of Evaluation: 03/28/17 Time of Evaluation: 09:00 - Subjective Subjective: discussed on rounds pt with STEPHANIE infiltrate and recurrent fevers- has + quantiferon and + PPD If pulmonary agrees and if no Bronchoscopy is indicated can start [facility] until cultures come back in 6 weeks ( smears are negative thus far but it may take 6 weeks for organism to grow) Pt can be followed up in [facility] - recmmend contacting [facility] Objective - Vital Signs/Intake and Output Vital Signs (last 24 hours): Temp Pulse Resp BP Pulse Ox 98.3 F 78 20 106/67 97 03/28/17 16:24 03/28/17 16:24 03/28/17 16:24 03/28/17 16:24 03/28/17 16:24 Intake and Output: 03/28/17 03/28/17 06:59 18:59 Intake Total 580 450 Balance 580 450 - Medications Medications: Current Medications Albuterol/Ipratropium (Duoneb 3 Mg/0.5 Mg (3 Ml) Ud) 3 ml INH RQ6 [facility] Last Admin: 03/28/17 13:59 Dose: Not Given Docusate Sodium (Colace) 100 mg PO BID [facility] Last Admin: 03/28/17 18:08 Dose: 100 mg Enoxaparin Sodium (Lovenox) 30 mg SC DAILY [facility] Last Admin: 03/28/17 09:29 Dose: 30 mg Famotidine (Pepcid) 20 mg PO BID [facility] Last Admin: 03/28/17 18:08 Dose: 20 mg Guaifenesin (Mucinex La) 600 mg PO BID [facility] Last Admin: 03/28/17 18:08 Dose: 600 mg Piperacillin Sod/Tazobactam (Sod 3.375 gm/ Sodium Chloride) 100 mls @ 200 mls/ hr IVPB Q6H [facility] Last Admin: 03/28/17 14:42 Dose: 200 mls/hr Azithromycin 500 mg/ Sodium (Chloride) 250 mls @ 250 mls/hr IVPB DAILY [facility] Last Admin: 03/28/17 09:28 Dose: 250 mls/hr Promethazine HCl/Codeine (Phenergan/Codeine Oral Syrup) 5 ml PO Q4 PRN PRN Reason: Cough Last Admin: 03/28/17 18:14 Dose: 5 ml Saccharomyces Boulardii (Florastor) [address] Last Admin: 03/28/17 18:08 Dose: 250 mg - Labs Labs: 03/28/17 07:35 03/28/17 07:35 PT 12.7 SECONDS (9.7-12.2) H 03/25/17 06:16 INR 1.1 03/25/17 06:16 APTT 28 SECONDS (21-34) 03/25/17 06:16 Assessment and Plan (1) Pneumonia Status: Acute (2) Sepsis Status: Acute
[2017-03-29] MEDS: Albuterol-Ipratrop 3 mg / 0.5 (3 ml) UD INH SCH ×5 (01:07→19:28)
[2017-03-29] MEDS: Piperacillin/Tazobact 3.375 GM in Sodium Chloride 100 ML IVPB SCH ×5 (01:45→20:30)
--- NOTE | 2017-03-29 07:47 | RAD ---
HISTORY: pna COMPARISON: Chest radiographs 03/20/2017. TECHNIQUE: Chest PA and lateral FINDINGS: LUNGS: A dense infiltrate affects the left apex and extends to the mid left hilar region once again, increased in the interval mildly. No interval right-sided infiltrate. Linear atelectasis is noted at the inferior right lung zone. PLEURA: No significant pleural effusion identified. No pneumothorax apparent. CARDIOVASCULAR: Normal. OSSEOUS STRUCTURES: No significant abnormalities. VISUALIZED UPPER ABDOMEN: Normal. OTHER FINDINGS: None. IMPRESSION: Increasing, dense left upper lobe infiltrate unchanged with underlying lesion not completely excluded though a large distribution of the left upper lobe from the apex to the hilar region at least. Minimal linear atelectasis in the inferior right lung zone.
[2017-03-29 08:09] LABS: BASO # 0.1 K/uL (0.0-0.2); BASO % 1.3 % (0.0-2.0); EOS # 0.3 K/uL (0.0-0.7); EOS % 2.8 % (0.0-4.0); HEMATOCRIT 36.5 % (35.0-51.0); LYMPH # 1.7 K/uL (1.0-4.3); LYMPH % 15.8 % (20.0-40.0); MEAN CELL VOLUME 85.3 fL (80.0-94.0); MEAN CORPUSCULAR HEMOGLOBIN 28.7 pg (27.0-31.0); MEAN CORPUSCULAR HGB CONC 33.6 g/dL (33.0-37.0); MEAN PLATELET VOLUME 8.5 fL (7.2-11.7); MONO # 1.5 K/uL (0.0-0.8); MONO % 14.2 % (0.0-10.0); RED CELL DISTRIBUTION WIDTH 13.6 % (11.5-14.5); WHITE BLOOD COUNT 10.9 K/uL (4.8-10.8)
[2017-03-29] MEDS ORDERED: EPINEPHrine 1 mg/ml (1:1000) Inj ONE (08:10)
[2017-03-29] MEDS ORDERED: Lidocaine 2% Inj (20ml) ONE (08:11)
[2017-03-29 08:30] LABS: CHLORIDE 103 mmol/L (98-107); SODIUM 138 mmol/L (132-148)
[2017-03-29 08:31] LABS: POTASSIUM 4.1 mmol/L (3.6-5.2)
[2017-03-29 08:33] LABS: ALKALINE PHOSPHATASE 128 U/L (38-126); AST/SGOT 30 U/L (17-59); BILIRUBIN,TOTAL 0.6 mg/dL (0.2-1.3); BLOOD UREA NITROGEN 9 mg/dL (9-20); CARBON DIOXIDE 23 mmol/L (22-30); GFR AFRICAN-AMERICAN > 60; GLUCOSE,RANDOM 93 mg/dL (75-110); TOTAL PROTEIN 7.1 g/dL (6.3-8.3)
[2017-03-29] MEDS ORDERED: Thrombin Topical 5,000 IU Spray Kit ONE (08:33)
[2017-03-29 08:34] LABS: ALT/SGPT 74 U/L (21-72); CALCIUM 8.8 mg/dl (8.6-10.4)
--- NOTE | 2017-03-29 08:38 | CP.PCM.PN ---
Subjective - Date & Time of Evaluation Date of Evaluation: 03/29/17 Time of Evaluation: 08:15 - Subjective Subjective: Patient was seen and examined at 8:15 AM 03/29/17 Admitted on 03/20/17 with complaints of myalgia, fever, nonproductive cough, palpitations, bilateral eyelid pain. He was seen by the [facility] and started on Augmentin and Tamiflu but without improvement. Chest X Ray revealed left upper lobe pneumonia. U/S showed fatty infiltration of the liver. CT Chest/Abdomen/Pelvis showed numerous calcified right hilar lymph subcarinal soft tissue presumably adenopathy, extensive STEPHANIE consolidation, small right> left pleural effusions, and small bowel thickening maybe related to enteritis. CT Head showed NO acute pathology. Quantiferon Gold is Positive. Please see Assessment and Plans below for details Upon FULL ROS: Swelling sensation in the throat has resolved NO dysphagia/odynophagia NO n/v/d/c Moved his bowels and states that it was black 03/26/17 but not today 03/29/17( monitor HgB/Hct for now) NO chest pain/palpitations Occasional dry nonproductive cough NO other complaints upon FULL ROS Exam: General: AAOx3, NAD HEENT: NCA, EOMI, PERRLA, NO lymphadenopathy, NO thyromegaly, (+) Erythematous Pharynx but NO exudate and NO Lymphadenopathy in the cervical/submandibular/ supraclavicular lymphadenopathy Cardio: NS1 and NS2, NO M/R/G Respiratory: CTA B/L, NO R/R/W GI: BSx4, Soft, Central Obesity therefore Liver and Spleen could not be adequately palpated, NO guarding/rebound tenderness Ext: Bilateral Pulses UE and LE are strong and equal, Capillary Refill is 2 seconds, NO edema. Right Anterior Forearm with raised erythematous area measuring 13 mm (site of PPD placed on 03/24/17) Neuro: CN II through XII are grossly intact Assessments: 1). STEPHANIE Pneumonia Quantiferon Gold is positive: I spoke with Nurse Michael and confirmed that patient is for Bronchoscopy at 10 AM 03/29/17 PPD read on 03/26/17 showed 18 mm induration and erythema: patient stated that he had unspecified vaccination for TB in [facility] 30 years ago Respiratory Isolation Sputum x 3 induced with Mucomyst 03/26/17 through 03/28/17 Zosyn and Azithromycin Blood Culture 03/20/17 is negative to date Urine Culture 03/20/17 shows NO growth Throat Culture 03/20/17 is negative Mycobacterium Preliminary 03/23/17 and 03/24/17 shows NO AFB. NO sputum was sent on 03/25/17. Mycobacterium Preliminary 03/26/17 shows NO AFB. Low Grade 99.1 fever on night of 03/28/[address] Thomas 2). RUQ Pain NO evidence of gallbladder pathology on U/S See results of CT Abdomen/Pelvis in HPI above Surgery Team Dr. Castaneda: no surgical intervention at this time GI Dr. Lam/Claudette: no further workup at this time Hepatitis Panel is negative Likely musculoskeletal 3). RIGGINS NO longer having this and could have been linked to his coughing upon presentation CT Head was unremarkable 4). Constipation Colace He is moving his bowels 5). Elevated LFTs Monitor: they are trending down Hepatitis Panel is negative Abdominal U/S did not show any evidence of Cholelithiasis/Cholecystitis and shows Fatty Infiltration of the Liver 6). Prophylaxis: Lovenox, Pepcid, Guaifensin, Promethazine/Codeine, Florastor Objective - Vital Signs/Intake and Output Vital Signs (last 24 hours): Temp Pulse Resp BP Pulse Ox 98.1 F 78 20 103/69 96 03/29/17 04:21 03/29/17 04:21 03/29/17 04:21 03/29/17 04:21 03/29/17 04:21 Intake and Output: 03/29/17 03/29/17 06:59 18:59 Intake Total 580 Balance 580 - Medications Medications: Current Medications Albuterol/Ipratropium (Duoneb 3 Mg/0.5 Mg (3 Ml) Ud) 3 ml INH RQ6 [facility] Last Admin: 03/29/17 07:42 Dose: 3 ml Docusate Sodium (Colace) 100 mg PO BID [facility] Last Admin: 03/28/17 18:08 Dose: 100 mg Enoxaparin Sodium (Lovenox) 30 mg SC DAILY [facility] Last Admin: 03/28/17 09:29 Dose: 30 mg Famotidine (Pepcid) 20 mg PO BID [facility] Last Admin: 03/28/17 18:08 Dose: 20 mg Guaifenesin (Mucinex La) 600 mg PO BID [facility] Last Admin: 03/28/17 18:08 Dose: 600 mg Piperacillin Sod/Tazobactam (Sod 3.375 gm/ Sodium Chloride) 100 mls @ 200 mls/ hr IVPB Q6H [facility] Last Admin: 03/29/17 08:30 Dose: 200 mls/hr Azithromycin 500 mg/ Sodium (Chloride) 250 mls @ 250 mls/hr IVPB DAILY [facility] Last Admin: 03/28/17 09:28 Dose: 250 mls/hr Promethazine HCl/Codeine (Phenergan/Codeine Oral Syrup) 5 ml PO Q4 PRN PRN Reason: Cough Last Admin: 03/28/17 18:14 Dose: 5 ml Saccharomyces Boulardii (Florastor) 250 mg PO BID [facility] Last Admin: 03/28/17 18:08 Dose: 250 mg - Labs Labs: 03/29/17 08:01 03/29/17 08:01 PT 12.7 SECONDS (9.7-12.2) H 03/25/17 06:16 INR 1.1 03/25/17 06:16 APTT 28 SECONDS (21-34) 03/25/17 06:16
[2017-03-29] MEDS ORDERED: Propofol 10 mg/ml Inj (20 ML) ONE (11:22)
[2017-03-29] MEDS ORDERED: Midazolam 2 MG/2 ML VIAL ONE (11:22)
[2017-03-29] MEDS ORDERED: Lactated Ringer's 1,000 ML IV ONE (11:35)
--- NOTE | 2017-03-29 13:10 | RAD ---
HISTORY: r o ptx s p bronchoscopy COMPARISON: 03/28/2017 FINDINGS: LUNGS: Persistent extensive opacity in the left apex/ upper lobe. Hazy opacity in lower left lung. No significant interval change. No right-sided opacity. PLEURA: No significant pleural effusion identified, no pneumothorax apparent. CARDIOVASCULAR: Normal. OSSEOUS STRUCTURES: No significant abnormalities. VISUALIZED UPPER ABDOMEN: Normal. OTHER FINDINGS: None. IMPRESSION: Persistent left apical/ upper lobe opacity with vague lower lobe opacity. No significant interval change.
[2017-03-29] MEDS: Enoxaparin 30 mg Syringe SC SCH (13:27)
[2017-03-29] MEDS: guaiFENesin 600 mg ER Tab PO SCH ×2 (13:28→17:36)
[2017-03-29] MEDS: Saccharomyces Boulardi 250 mg Cap PO SCH ×2 (13:28→17:36)
[2017-03-29] MEDS: Azithromycin 500 MG in Sodium Chloride 0.9% 250 ML IVPB SCH (13:34)
--- NOTE | 2017-03-29 14:47 | RAD ---
INTRAOPERATIVE FLUOROSCOPY Intra under fluoroscopy was provided to the referring physician diver assistant bronchoscopy. A single spot fluoroscopic images submitted demonstrating bronchoscope entering into left upper lobe bronchus. Please see op report further detail. Seconds of fluoro time was utilized with a total radiation dose of 7.17 mGy. IMPRESSION: Please see operative report for further details.
--- NOTE | 2017-03-29 16:19 | CP.PCM.PN ---
Subjective - Date & Time of Evaluation Date of Evaluation: 03/29/17 Time of Evaluation: 07:00 - Subjective Subjective: events noted agree with your plan Objective - Vital Signs/Intake and Output Vital Signs (last 24 hours): Temp Pulse Resp BP Pulse Ox 98 F 83 23 115/75 98 03/29/17 13:15 03/29/17 13:15 03/29/17 13:15 03/29/17 13:15 03/29/17 13:15 Intake and Output: 03/29/17 03/29/17 06:59 18:59 Intake Total 580 Balance 580 - Medications Medications: Current Medications Acetylcysteine (Acetylcysteine 20%) 4 ml INH ONCE ONE Stop: 03/30/17 07:31 Albuterol/Ipratropium (Duoneb 3 Mg/0.5 Mg (3 Ml) Ud) 3 ml INH RQ6 [facility] Last Admin: 03/29/17 12:46 Dose: 3 ml Docusate Sodium (Colace) 100 mg PO BID [facility] Last Admin: 03/29/17 13:28 Dose: 100 mg Enoxaparin Sodium (Lovenox) 30 mg SC DAILY [facility] Last Admin: 03/29/17 13:27 Dose: 30 mg Famotidine (Pepcid) 20 mg PO BID [facility] Last Admin: 03/28/17 18:08 Dose: 20 mg Guaifenesin (Mucinex La) 600 mg PO BID [facility] Last Admin: 03/29/17 13:28 Dose: 600 mg Piperacillin Sod/Tazobactam (Sod 3.375 gm/ Sodium Chloride) 100 mls @ 200 mls/ hr IVPB Q6H [facility] Last Admin: 03/29/17 15:07 Dose: 200 mls/hr Azithromycin 500 mg/ Sodium (Chloride) 250 mls @ 250 mls/hr IVPB DAILY [facility] Last Admin: 03/29/17 13:34 Dose: 250 mls/hr Promethazine HCl/Codeine (Phenergan/Codeine Oral Syrup) 5 ml PO Q4 PRN PRN Reason: Cough Last Admin: 03/28/17 18:14 Dose: 5 ml Saccharomyces Boulardii (Florastor) 250 mg PO BID [facility] Last Admin: 03/29/17 13:28 Dose: 250 mg - Labs Labs: 03/29/17 08:01 03/29/17 08:01 PT 12.7 SECONDS (9.7-12.2) H 03/25/17 06:16 INR 1.1 03/25/17 06:16 APTT 28 SECONDS (21-34) 03/25/17 06:16 Assessment and Plan (1) Pneumonia Status: Acute (2) Sepsis Status: Acute
[2017-03-29] MEDS: Promethazine/Cod 6.25mg-10mg/5ml Syr UD PO PRN (17:40)
[2017-03-30] MEDS: Albuterol-Ipratrop 3 mg / 0.5 (3 ml) UD INH SCH ×4 (01:19→20:09)
[2017-03-30] MEDS: Piperacillin/Tazobact 3.375 GM in Sodium Chloride 100 ML IVPB SCH ×4 (02:12→19:17)
[2017-03-30 06:36] LABS: BASO # 0.1 K/uL (0.0-0.2); BASO % 1.2 % (0.0-2.0); EOS # 0.3 K/uL (0.0-0.7); EOS % 2.8 % (0.0-4.0); HEMATOCRIT 34.8 % (35.0-51.0); LYMPH # 1.8 K/uL (1.0-4.3); LYMPH % 16.4 % (20.0-40.0); MEAN CELL VOLUME 85.2 fL (80.0-94.0); MEAN CORPUSCULAR HEMOGLOBIN 29.1 pg (27.0-31.0); MEAN CORPUSCULAR HGB CONC 34.1 g/dL (33.0-37.0); MONO # 1.2 K/uL (0.0-0.8); MONO % 11.1 % (0.0-10.0); NRBC % 0.1 % (0.0-2.0); RED CELL DISTRIBUTION WIDTH 13.8 % (11.5-14.5)
[2017-03-30 07:24] LABS: ALB/GLOB RATIO 0.8 (1.0-2.1); ALKALINE PHOSPHATASE 120 U/L (38-126); ALT/SGPT 60 U/L (21-72); AST/SGOT 27 U/L (17-59); BILIRUBIN,TOTAL 0.7 mg/dL (0.2-1.3); BLOOD UREA NITROGEN 9 mg/dL (9-20); CALCIUM 9.1 mg/dl (8.6-10.4); CARBON DIOXIDE 26 mmol/L (22-30); CHLORIDE 100 mmol/L (98-107); GFR AFRICAN-AMERICAN > 60; GLUCOSE,RANDOM 98 mg/dL (75-110); POTASSIUM 4.1 mmol/L (3.6-5.2); SODIUM 139 mmol/L (132-148); TOTAL PROTEIN 7.1 g/dL (6.3-8.3)
[2017-03-30] MEDS ORDERED: Acetylcysteine 20% Inhal Soln (4ml) INH ONE (07:30)
--- NOTE | 2017-03-30 08:31 | CP.PCM.PN ---
Subjective - Date & Time of Evaluation Date of Evaluation: 03/30/17 Time of Evaluation: 08:15 - Subjective Subjective: Patient was seen and examined at 8:15 AM 03/30/17 Admitted on 03/20/17 with complaints of myalgia, fever, nonproductive cough, palpitations, bilateral eyelid pain. He was seen by the [facility] and started on Augmentin and Tamiflu but without improvement. Chest X Ray revealed left upper lobe pneumonia. U/S showed fatty infiltration of the liver. CT Chest/Abdomen/Pelvis showed numerous calcified right hilar lymph subcarinal soft tissue presumably adenopathy, extensive STEPHANIE consolidation, small right> left pleural effusions, and small bowel thickening maybe related to enteritis. CT Head showed NO acute pathology. Quantiferon Gold is Positive. He underwent Bronchoscopy on 03/29/17 and cultures were sent. Please see Assessment and Plans below for details Upon FULL ROS: Swelling sensation in the throat has resolved NO dysphagia/odynophagia NO n/v/d/c NO more episodes of black bowel movements (Hgb/Hct are stable) NO chest pain/palpitations Occasional dry nonproductive cough alternating with small amounts of white phlegm NO other complaints upon FULL ROS Exam: General: AAOx3, NAD HEENT: NCA, EOMI, PERRLA, NO lymphadenopathy, NO thyromegaly, (+) Erythematous Pharynx but NO exudate and NO Lymphadenopathy in the cervical/submandibular/ supraclavicular lymphadenopathy Cardio: NS1 and NS2, NO M/R/G Respiratory: CTA B/L, NO R/R/W GI: BSx4, Soft, Central Obesity therefore Liver and Spleen could not be adequately palpated, NO guarding/rebound tenderness Ext: Bilateral Pulses UE and LE are strong and equal, Capillary Refill is 2 seconds, NO edema. Neuro: CN II through XII are grossly intact Assessments: 1). STEPHANIE Pneumonia Quantiferon Gold is positive. Patient underwent Bronchoscopy with Dr. Lomas on 03/29/17. Bronchial Wash 03/29/17 Culture and Smear are pending Bronchial Wash 03/29/17 Fungus Culture showed NO Fungus on DAFNE Preparation Bronchial Wash 03/29/17 Gram Stain is Negative Bronchial Wash 03/29/17 AFB Culture is pending Awaiting results of Bronchial Wash cultures to determine course of treatment PPD read on 03/26/17 showed 18 mm induration and erythema: patient stated that he had unspecified vaccination for TB in [facility] 30 years ago Respiratory Isolation F/U Sputum for AFB sent morning 03/30/17 Zosyn and Azithromycin Blood Culture 03/20/17 is negative to date Urine Culture 03/20/17 shows NO growth Throat Culture 03/20/17 is negative Mycobacterium Preliminary 03/23/17,03/24/17, 03/26/17, and 03/27/17 shows NO AFB. NO sputum was sent on 03/25/17. NO Fever overnight 03/29/17 through 03/30/[address] Thomas Pulmonology Dr. Lomas 2). RUQ Pain NO evidence of gallbladder pathology on U/S See results of CT Abdomen/Pelvis in HPI above Surgery Team Dr. Castaneda: no surgical intervention at this time GI Dr. Lam/Claudette: no further workup at this time Hepatitis Panel is negative Likely musculoskeletal 3). RIGGINS NO longer having this and could have been linked to his coughing upon presentation CT Head was unremarkable 4). Constipation Colace He is moving his bowels 5). Elevated LFTs Monitor: they are normal on 03/30/17 Hepatitis Panel is negative Abdominal U/S did not show any evidence of Cholelithiasis/Cholecystitis and shows Fatty Infiltration of the Liver 6). Prophylaxis: Lovenox, Pepcid, Guaifensin, Promethazine/Codeine, Florastor Gay Eugene.Jacques Objective - Vital Signs/Intake and Output Vital Signs (last 24 hours): Temp Pulse Resp BP Pulse Ox 98.1 F 73 20 104/64 99 03/30/17 07:33 03/30/17 07:33 03/30/17 07:33 03/30/17 07:33 03/30/17 07:33 Intake and Output: 03/30/17 03/30/17 06:59 18:59 Intake Total 580 Balance 580 - Medications Medications: Current Medications Albuterol/Ipratropium (Duoneb 3 Mg/0.5 Mg (3 Ml) Ud) 3 ml INH RQ6 [facility] Last Admin: 03/30/17 07:37 Dose: 3 ml Docusate Sodium (Colace) 100 mg PO BID [facility] Last Admin: 03/29/17 17:36 Dose: 100 mg Enoxaparin Sodium (Lovenox) 30 mg SC DAILY [facility] Last Admin: 03/29/17 13:27 Dose: 30 mg Famotidine (Pepcid) 20 mg PO BID [facility] Last Admin: 03/29/17 17:35 Dose: 20 mg Guaifenesin (Mucinex La) 600 mg PO BID [facility] Last Admin: 03/29/17 17:36 Dose: 600 mg Piperacillin Sod/Tazobactam (Sod 3.375 gm/ Sodium Chloride) 100 mls @ 200 mls/ hr IVPB Q6H [facility] Last Admin: 03/30/17 08:14 Dose: 200 mls/hr Azithromycin 500 mg/ Sodium (Chloride) 250 mls @ 250 mls/hr IVPB DAILY [facility] Last Admin: 03/29/17 13:34 Dose: 250 mls/hr Promethazine HCl/Codeine (Phenergan/Codeine Oral Syrup) 5 ml PO Q4 PRN PRN Reason: Cough Last Admin: 03/29/17 17:40 Dose: 5 ml Saccharomyces Boulardii (Florastor) 250 mg PO BID [facility] Last Admin: 03/29/17 17:36 Dose: 250 mg - Labs Labs: 03/30/17 06:18 03/30/17 06:18 PT 12.7 SECONDS (9.7-12.2) H 03/25/17 06:16 INR 1.1 03/25/17 06:16 APTT 28 SECONDS (21-34) 03/25/17 06:16
[2017-03-30] MEDS: guaiFENesin 600 mg ER Tab PO SCH ×2 (09:25→17:21)
[2017-03-30] MEDS: Saccharomyces Boulardi 250 mg Cap PO SCH ×2 (09:25→17:21)
[2017-03-30] MEDS: Azithromycin 500 MG in Sodium Chloride 0.9% 250 ML IVPB SCH (09:33)
[2017-03-30] MEDS: Promethazine/Cod 6.25mg-10mg/5ml Syr UD PO PRN (21:11)
[2017-03-31] MEDS: Albuterol-Ipratrop 3 mg / 0.5 (3 ml) UD INH SCH ×4 (01:11→19:40)
--- NOTE | 2017-03-31 02:20 | CP.PCM.PN ---
<Lisa Shipman - Last Filed: 03/31/17 02:18> Subjective - Date & Time of Evaluation Date of Evaluation: 03/31/17 Time of Evaluation: 02:18 - Subjective Subjective: Patient S&E at bedside. Patient resting comfortably in bed watching TV. Patient says he is still having a strange feeling in his throat but denies pain or trouble breathing or swallowing. Patient also having some mild left scapula pain. Pt denies F/C, CP/SOB, N/V/D. Objective - Vital Signs/Intake and Output Vital Signs (last 24 hours): Temp Pulse Resp BP Pulse Ox 98.2 F 82 20 99/61 L 97 03/30/17 23:30 03/30/17 23:30 03/30/17 23:30 03/30/17 23:30 03/30/17 23:30 Intake and Output: 03/30/17 03/31/17 18:59 06:59 Intake Total 680 340 Balance 680 340 - Medications Medications: Current Medications Albuterol/Ipratropium (Duoneb 3 Mg/0.5 Mg (3 Ml) Ud) 3 ml INH RQ6 [facility] Last Admin: 03/31/17 01:11 Dose: Not Given Docusate Sodium (Colace) 100 mg PO BID [facility] Last Admin: 03/30/17 17:21 Dose: 100 mg Enoxaparin Sodium (Lovenox) 30 mg SC DAILY [facility] Last Admin: 03/29/17 13:27 Dose: 30 mg Famotidine (Pepcid) 20 mg PO BID [facility] Last Admin: 03/30/17 17:21 Dose: 20 mg Guaifenesin (Mucinex La) 600 mg PO BID [facility] Last Admin: 03/30/17 17:21 Dose: 600 mg Piperacillin Sod/Tazobactam (Sod 3.375 gm/ Sodium Chloride) 100 mls @ 200 mls/ hr IVPB Q6H [facility] Last Admin: 03/30/17 19:17 Dose: 200 mls/hr Azithromycin 500 mg/ Sodium (Chloride) 250 mls @ 250 mls/hr IVPB DAILY [facility] Last Admin: 03/30/17 09:33 Dose: 250 mls/hr Promethazine HCl/Codeine (Phenergan/Codeine Oral Syrup) 5 ml PO Q4 PRN PRN Reason: Cough Last Admin: 03/30/17 21:11 Dose: 5 ml Saccharomyces Boulardii (Florastor) [address] Last Admin: 03/30/17 17:21 Dose: 250 mg - Labs Labs: 03/30/17 06:18 03/30/17 06:18 PT 12.7 SECONDS (9.7-12.2) H 03/25/17 06:16 INR 1.1 03/25/17 06:16 APTT 28 SECONDS (21-34) 03/25/17 06:16 - Constitutional Appears: Non-toxic, No Acute Distress - Head Exam Head Exam: NORMAL INSPECTION - Eye Exam Eye Exam: EOMI - ENT Exam ENT Exam: Mucous Membranes Moist - Respiratory Exam Respiratory Exam: Clear to Ausculation Bilateral, NORMAL BREATHING PATTERN - Cardiovascular Exam Cardiovascular Exam: REGULAR RHYTHM, +S1, +S2 - Extremities Exam Extremities Exam: Normal Inspection. absent: Calf Tenderness, Pedal Edema - Back Exam Back Exam: NORMAL INSPECTION. absent: rash noted, tenderness - Neurological Exam Neurological Exam: Alert, Awake, Oriented x3 - Psychiatric Exam Psychiatric exam: Normal Affect, Normal Mood - Skin Skin Exam: Dry, Intact, Warm Assessment and Plan - Assessment and Plan (Free Text) Assessment: 1). STEPHANIE Pneumonia Quantiferon Gold is positive. Patient underwent Bronchoscopy with Dr. Lomas on 03/29/17. Bronchial Wash 03/29/17 Culture and Smear are pending Bronchial Wash 03/29/17 Fungus Culture showed NO Fungus on DAFNE Preparation Bronchial Wash 03/29/17 Gram Stain is Negative Bronchial Wash 03/29/17 AFB Culture is pending Awaiting results of Bronchial Wash cultures to determine course of treatment 03/30/17: Sputum gram stain: rare gram positive cocci in chains; culture pending PPD read on 03/26/17 showed 18 mm induration and erythema: patient stated that he had unspecified vaccination for TB in [facility] 30 years ago Respiratory Isolation F/U Sputum for AFB sent morning 03/30/17 Zosyn and Azithromycin Blood Culture 03/20/17 is negative to date Urine Culture 03/20/17 shows NO growth Throat Culture 03/20/17 is negative Mycobacterium Preliminary 03/23/17,03/24/17, 03/26/17, and 03/27/17 shows NO AFB. NO sputum was sent on 03/25/17. NO Fever overnight 03/29/17 through 03/30/[address] Thomas Pulmonology Dr. Lomas 2). RUQ Pain NO evidence of gallbladder pathology on U/S See results of CT Abdomen/Pelvis in HPI above Surgery Team Dr. Castaneda: no surgical intervention at this time GI Dr. Lam/Claudette: no further workup at this time Hepatitis Panel is negative Likely musculoskeletal 3). RIGGINS NO longer having this and could have been linked to his coughing upon presentation CT Head was unremarkable 4). Constipation Colace He is moving his bowels 5). Elevated LFTs Monitor: they are normal on 03/30/17 Hepatitis Panel is negative Abdominal U/S did not show any evidence of Cholelithiasis/Cholecystitis and shows Fatty Infiltration of the Liver 6). Prophylaxis: Lovenox, Pepcid, Guaifensin, Promethazine/Codeine, Florastor <Adolfo Solo - Last Filed: 03/31/17 09:02> Objective - Vital Signs/Intake and Output Vital Signs (last 24 hours): Temp Pulse Resp BP Pulse Ox 98.2 F 81 20 112/75 96 03/31/17 07:30 03/31/17 07:30 03/31/17 07:30 03/31/17 07:30 03/31/17 07:30 Intake and Output: 03/31/17 03/31/17 06:59 18:59 Intake Total 340 Balance 340 - Medications Medications: Current Medications Albuterol/Ipratropium (Duoneb 3 Mg/0.5 Mg (3 Ml) Ud) 3 ml INH RQ6 [facility] Last Admin: 03/31/17 07:31 Dose: 3 ml Docusate Sodium (Colace) 100 mg PO BID [facility] Last Admin: 03/30/17 17:21 Dose: 100 mg Enoxaparin Sodium (Lovenox) 30 mg SC DAILY [facility] Last Admin: 03/29/17 13:27 Dose: 30 mg Famotidine (Pepcid) 20 mg PO BID [facility] Last Admin: 03/30/17 17:21 Dose: 20 mg Guaifenesin (Mucinex La) 600 mg PO BID [facility] Last Admin: 03/30/17 17:21 Dose: 600 mg Piperacillin Sod/Tazobactam (Sod 3.375 gm/ Sodium Chloride) 100 mls @ 200 mls/ hr IVPB Q6H [facility] Last Admin: 03/31/17 08:39 Dose: 200 mls/hr Azithromycin 500 mg/ Sodium (Chloride) 250 mls @ 250 mls/hr IVPB DAILY [facility] Last Admin: 03/30/17 09:33 Dose: 250 mls/hr Promethazine HCl/Codeine (Phenergan/Codeine Oral Syrup) 5 ml PO Q4 PRN PRN Reason: Cough Last Admin: 03/30/17 21:11 Dose: 5 ml Saccharomyces Boulardii (Florastor) [address] Last Admin: 03/30/17 17:21 Dose: 250 mg - Labs Labs: 03/31/17 07:16 03/31/17 07:16 PT 12.7 SECONDS (9.7-12.2) H 03/25/17 06:16 INR 1.1 03/25/17 06:16 APTT 28 SECONDS (21-34) 03/25/17 06:16 Attending/Attestation - Attestation I have personally seen and examined this patient.: Yes I have fully participated in the care of the patient.: Yes I have reviewed all pertinent clinical information, including history, physical exam and plan: Yes Notes (Text): 03/31/17 08:55 Patient was seen and examined at 8:45 AM 03/31/17 Admitted on 03/20/17 with complaints of myalgia, fever, nonproductive cough, palpitations, bilateral eyelid pain. He was seen by the [facility] and started on Augmentin and Tamiflu but without improvement. Chest X Ray revealed left upper lobe pneumonia. U/S showed fatty infiltration of the liver. CT Chest/Abdomen/Pelvis showed numerous calcified right hilar lymph subcarinal soft tissue presumably adenopathy, extensive STEPHANIE consolidation, small right> left pleural effusions, and small bowel thickening maybe related to enteritis. CT Head showed NO acute pathology. Quantiferon Gold is Positive. He underwent Bronchoscopy on 03/29/17 and cultures were sent. Please see Assessment and Plans below for details Upon FULL ROS: Swelling sensation in the throat has resolved NO dysphagia/odynophagia NO n/v/d/c NO more episodes of black bowel movements (Hgb/Hct are stable) NO chest pain/palpitations Occasional dry nonproductive cough alternating with small amounts of white phlegm but no hemoptysis NO other complaints upon FULL ROS Exam: General: AAOx3, NAD HEENT: NCA, EOMI, PERRLA, NO lymphadenopathy, NO thyromegaly, (+) Erythematous Pharynx but NO exudate and NO Lymphadenopathy in the cervical/submandibular/ supraclavicular lymphadenopathy Cardio: NS1 and NS2, NO M/R/G Respiratory: CTA B/L, NO R/R/W GI: BSx4, Soft, Central Obesity therefore Liver and Spleen could not be adequately palpated, NO guarding/rebound tenderness Ext: Bilateral Pulses UE and LE are strong and equal, Capillary Refill is 2 seconds, NO edema. Neuro: CN II through XII are grossly intact Assessment and Plan: 1). STEPHANIE Pneumonia Quantiferon Gold is positive. Patient underwent Bronchoscopy with Dr. Lomas on 03/29/17. Bronchial Wash 03/29/17 Culture and Smear: NORMAL Saprophytic Tori Bronchial Wash 03/29/17 Fungus Culture showed NO Fungus on DAFNE Preparation Bronchial Wash 03/29/17 Gram Stain is Negative Bronchial Wash 03/29/17 AFB Culture is pending Awaiting results of Bronchial Wash AFB cultures to determine course of treatment PPD read on 03/26/17 showed 18 mm induration and erythema: patient stated that he had unspecified vaccination for TB in [facility] 30 years ago Respiratory Isolation F/U Sputum for AFB sent morning 03/30/17 Zosyn (since 03/20/17) and Azithromycin (since 03/22/17) Blood Culture 03/20/17 is negative to date Urine Culture 03/20/17 shows NO growth Throat Culture 03/20/17 is negative Mycobacterium Preliminary 03/23/17,03/24/17, 03/26/17, and 03/27/17, 03/28/17 shows NO AFB. Awaiting to hear back from ID Dr. Thomas concerning removal from respiratory isolation (Nurse Michael put a call out to him this morning 03/31/17). NO Fever overnight 03/29/17 through 03/31/[address] Thomas Pulmonology Dr. Lomas 2). RUQ Pain NO evidence of gallbladder pathology on U/S See results of CT Abdomen/Pelvis in HPI above Surgery Team Dr. Castaneda: no surgical intervention at this time GI Dr. Lam/Claudette: no further workup at this time Hepatitis Panel is negative Likely musculoskeletal 3). RIGGINS NO longer having this and could have been linked to his coughing upon presentation CT Head was unremarkable 4). Constipation Colace He is moving his bowels 5). Elevated LFTs Monitor: they are normal on 03/31/17 Hepatitis Panel is negative Abdominal U/S did not show any evidence of Cholelithiasis/Cholecystitis and shows Fatty Infiltration of the Liver 6). Prophylaxis: Lovenox, Pepcid, Guaifensin, Promethazine/Codeine, Florastor, Duoneb Adolfo Solo D.O.
[2017-03-31] MEDS: Piperacillin/Tazobact 3.375 GM in Sodium Chloride 100 ML IVPB SCH ×4 (02:36→19:35)
[2017-03-31 07:26] LABS: BASO # 0.2 K/uL (0.0-0.2); BASO % 2.3 % (0.0-2.0); EOS # 0.3 K/uL (0.0-0.7); EOS % 2.9 % (0.0-4.0); HEMATOCRIT 35.9 % (35.0-51.0); LYMPH # 1.8 K/uL (1.0-4.3); LYMPH % 17.5 % (20.0-40.0); MEAN CELL VOLUME 85.4 fL (80.0-94.0); MEAN CORPUSCULAR HEMOGLOBIN 28.6 pg (27.0-31.0); MEAN CORPUSCULAR HGB CONC 33.4 g/dL (33.0-37.0); MEAN PLATELET VOLUME 8.3 fL (7.2-11.7); MONO # 1.1 K/uL (0.0-0.8); MONO % 10.7 % (0.0-10.0); WHITE BLOOD COUNT 10.2 K/uL (4.8-10.8)
[2017-03-31 08:01] LABS: ALB/GLOB RATIO 0.9 (1.0-2.1); ALKALINE PHOSPHATASE 109 U/L (38-126); ALT/SGPT 53 U/L (21-72); AST/SGOT 39 U/L (17-59); BILIRUBIN,TOTAL 0.7 mg/dL (0.2-1.3); BLOOD UREA NITROGEN 8 mg/dL (9-20); CALCIUM 9.3 mg/dl (8.6-10.4); CARBON DIOXIDE 24 mmol/L (22-30); CHLORIDE 100 mmol/L (98-107); GFR AFRICAN-AMERICAN > 60; GLUCOSE,RANDOM 94 mg/dL (75-110); MAGNESIUM 2.2 mg/dL (1.6-2.3); PHOSPHOROUS 3.9 mg/dL (2.5-4.5); POTASSIUM 4.1 mmol/L (3.6-5.2); SODIUM 139 mmol/L (132-148); TOTAL PROTEIN 7.2 g/dL (6.3-8.3)
[2017-03-31] MEDS: Azithromycin 500 MG in Sodium Chloride 0.9% 250 ML IVPB SCH (10:46)
[2017-03-31] MEDS: Enoxaparin 30 mg Syringe SC SCH (10:47)
[2017-03-31] MEDS: Saccharomyces Boulardi 250 mg Cap PO SCH ×2 (10:47→17:31)
[2017-03-31] MEDS: guaiFENesin 600 mg ER Tab PO SCH ×2 (10:47→17:31)
--- NOTE | 2017-03-31 14:39 | CP.PCM.PN ---
Subjective - Date & Time of Evaluation Date of Evaluation: 03/31/17 Time of Evaluation: 09:00 - Subjective Subjective: CLINICALLY IMPROVED AFB SMEARS NEGATIVE CONSIDER D/C ISOLATION AWAIT AFB SMEARS FROM OR Objective - Vital Signs/Intake and Output Vital Signs (last 24 hours): Temp Pulse Resp BP Pulse Ox 98.2 F 81 20 112/75 96 03/31/17 07:30 03/31/17 07:30 03/31/17 07:30 03/31/17 07:30 03/31/17 07:30 Intake and Output: 03/31/17 03/31/17 06:59 18:59 Intake Total 340 Balance 340 - Medications Medications: Current Medications Albuterol/Ipratropium (Duoneb 3 Mg/0.5 Mg (3 Ml) Ud) 3 ml INH RQ6 [facility] Last Admin: 03/31/17 14:28 Dose: 3 ml Docusate Sodium (Colace) 100 mg PO BID [facility] Last Admin: 03/31/17 10:47 Dose: 100 mg Enoxaparin Sodium (Lovenox) 30 mg SC DAILY [facility] Last Admin: 03/31/17 10:47 Dose: 30 mg Famotidine (Pepcid) 20 mg PO BID [facility] Last Admin: 03/31/17 10:47 Dose: 20 mg Guaifenesin (Mucinex La) 600 mg PO BID [facility] Last Admin: 03/31/17 10:47 Dose: 600 mg Piperacillin Sod/Tazobactam (Sod 3.375 gm/ Sodium Chloride) 100 mls @ 200 mls/ hr IVPB Q6H [facility] Last Admin: 03/31/17 08:39 Dose: 200 mls/hr Azithromycin 500 mg/ Sodium (Chloride) 250 mls @ 250 mls/hr IVPB DAILY [facility] Last Admin: 03/31/17 10:46 Dose: 250 mls/hr Promethazine HCl/Codeine (Phenergan/Codeine Oral Syrup) 5 ml PO Q4 PRN PRN Reason: Cough Last Admin: 03/30/17 21:11 Dose: 5 ml Saccharomyces Boulardii (Florastor) 250 mg PO BID [facility] Last Admin: 03/31/17 10:47 Dose: 250 mg - Labs Labs: 03/31/17 07:16 03/31/17 07:16 PT 12.7 SECONDS (9.7-12.2) H 03/25/17 06:16 INR 1.1 03/25/17 06:16 APTT 28 SECONDS (21-34) 03/25/17 06:16 - Constitutional Appears: Non-toxic, Chronically Ill - Head Exam Head Exam: NORMOCEPHALIC - Eye Exam Eye Exam: PERRL - ENT Exam ENT Exam: Mucous Membranes Dry - Neck Exam Neck Exam: absent: Lymphadenopathy - Respiratory Exam Respiratory Exam: Decreased Breath Sounds - Cardiovascular Exam Cardiovascular Exam: REGULAR RHYTHM - GI/Abdominal Exam GI & Abdominal Exam: Distended, Soft Assessment and Plan (1) Pneumonia Status: Acute (2) Sepsis Status: Acute
[2017-03-31] MEDS: Promethazine/Cod 6.25mg-10mg/5ml Syr UD PO PRN (21:32)
[2017-04-01] MEDS: Albuterol-Ipratrop 3 mg / 0.5 (3 ml) UD INH SCH ×4 (01:35→19:14)
[2017-04-01] MEDS: Piperacillin/Tazobact 3.375 GM in Sodium Chloride 100 ML IVPB SCH ×3 (02:23→19:29)
[2017-04-01 07:31] LABS: BASO # 0.1 K/uL (0.0-0.2); BASO % 1.4 % (0.0-2.0); EOS # 0.3 K/uL (0.0-0.7); EOS % 2.9 % (0.0-4.0); HEMATOCRIT 35.5 % (35.0-51.0); LYMPH % 18.8 % (20.0-40.0); MEAN CELL VOLUME 85.6 fL (80.0-94.0); MEAN CORPUSCULAR HEMOGLOBIN 28.8 pg (27.0-31.0); MEAN CORPUSCULAR HGB CONC 33.7 g/dL (33.0-37.0); MEAN PLATELET VOLUME 8.3 fL (7.2-11.7); MONO # 1.2 K/uL (0.0-0.8); MONO % 11.4 % (0.0-10.0); RED CELL DISTRIBUTION WIDTH 13.7 % (11.5-14.5); WHITE BLOOD COUNT 10.4 K/uL (4.8-10.8)
[2017-04-01 08:20] LABS: CHLORIDE 104 mmol/L (98-107)
[2017-04-01 08:21] LABS: POTASSIUM 4.3 mmol/L (3.6-5.2); SODIUM 140 mmol/L (132-148)
[2017-04-01 08:23] LABS: ALB/GLOB RATIO 0.9 (1.0-2.1); ALKALINE PHOSPHATASE 106 U/L (38-126); ALT/SGPT 48 U/L (21-72); AST/SGOT 28 U/L (17-59); BILIRUBIN,TOTAL 0.7 mg/dL (0.2-1.3); BLOOD UREA NITROGEN 9 mg/dL (9-20); CARBON DIOXIDE 25 mmol/L (22-30); GFR AFRICAN-AMERICAN > 60; GLUCOSE,RANDOM 90 mg/dL (75-110); TOTAL PROTEIN 7.2 g/dL (6.3-8.3)
[2017-04-01 08:24] LABS: CALCIUM 9.2 mg/dl (8.6-10.4); MAGNESIUM 2.2 mg/dL (1.6-2.3); PHOSPHOROUS 3.9 mg/dL (2.5-4.5)
--- NOTE | 2017-04-01 09:57 | CP.PCM.PN ---
<iLsa Shipman - Last Filed: 04/01/17 18:42> Subjective - Date & Time of Evaluation Date of Evaluation: 04/01/17 Time of Evaluation: 09:57 - Subjective Subjective: Patient seen and examined at bedside. Patient doing well with no new complaints at this time. Patient still having pain over left scapular area. Pt denies F/C, CP/SOB, N/V/D. Objective - Vital Signs/Intake and Output Vital Signs (last 24 hours): Temp Pulse Resp BP Pulse Ox 97.9 F 78 20 129/66 94 L 04/01/17 07:45 04/01/17 07:45 04/01/17 07:45 04/01/17 07:45 04/01/17 07:45 Intake and Output: 04/01/17 04/01/17 06:59 18:59 Intake Total 420 Balance 420 - Medications Medications: Current Medications Albuterol/Ipratropium (Duoneb 3 Mg/0.5 Mg (3 Ml) Ud) 3 ml INH RQ6 [facility] Last Admin: 04/01/17 07:16 Dose: 3 ml Docusate Sodium (Colace) 100 mg PO BID [facility] Last Admin: 03/31/17 17:31 Dose: 100 mg Enoxaparin Sodium (Lovenox) 30 mg SC DAILY [facility] Last Admin: 03/31/17 10:47 Dose: 30 mg Famotidine (Pepcid) 20 mg PO BID [facility] Last Admin: 03/31/17 17:31 Dose: 20 mg Guaifenesin (Mucinex La) 600 mg PO BID [facility] Last Admin: 03/31/17 17:31 Dose: 600 mg Piperacillin Sod/Tazobactam (Sod 3.375 gm/ Sodium Chloride) 100 mls @ 200 mls/ hr IVPB Q6H [facility] Last Admin: 04/01/17 08:57 Dose: 200 mls/hr Azithromycin 500 mg/ Sodium (Chloride) 250 mls @ 250 mls/hr IVPB DAILY [facility] Last Admin: 03/31/17 10:46 Dose: 250 mls/hr Promethazine HCl/Codeine (Phenergan/Codeine Oral Syrup) 5 ml PO Q4 PRN PRN Reason: Cough Last Admin: 03/31/17 21:32 Dose: 5 ml Saccharomyces Boulardii (Florastor) 250 mg PO BID [facility] Last Admin: 03/31/17 17:31 Dose: 250 mg - Labs Labs: 04/01/17 07:11 04/01/17 07:11 PT 12.7 SECONDS (9.7-12.2) H 03/25/17 06:16 INR 1.1 03/25/17 06:16 APTT 28 SECONDS (21-34) 03/25/17 06:16 - Constitutional Appears: Non-toxic, No Acute Distress - Head Exam Head Exam: ATRAUMATIC, NORMAL INSPECTION, NORMOCEPHALIC - Eye Exam Eye Exam: EOMI - ENT Exam ENT Exam: Mucous Membranes Moist - Respiratory Exam Respiratory Exam: Wheezes (Left upper lobe ), NORMAL BREATHING PATTERN. absent : Rales, Rhonchi, Respiratory Distress - Cardiovascular Exam Cardiovascular Exam: REGULAR RHYTHM, +S1, +S2 - GI/Abdominal Exam GI & Abdominal Exam: Soft, Normal Bowel Sounds. absent: Distended, Tenderness - Extremities Exam Extremities Exam: Normal Inspection. absent: Pedal Edema - Back Exam Back Exam: NORMAL INSPECTION. absent: paraspinal tenderness - Psychiatric Exam Psychiatric exam: Normal Affect, Normal Mood - Skin Skin Exam: Dry, Intact, Normal Color, Warm Assessment and Plan - Assessment and Plan (Free Text) Assessment: 1). STEPHANIE Pneumonia Quantiferon Gold is positive. Patient underwent Bronchoscopy with Dr. Lomas on 03/29/17. Bronchial Wash 03/29/17 Culture and Smear showed normal saprophytic sawyer Bronchial Wash 03/29/17 Fungus Culture showed NO Fungus on DAFNE Preparation Bronchial Wash 03/29/17 Gram Stain is Negative Bronchial Wash 03/29/17 AFB pending Await AFB stain results from Bronchial Wash 03/29/17 before determining whether respiratory isolation needs to be discontinued or not. Awaiting results of Bronchial Wash cultures to determine course of treatment 03/30/17: Sputum gram stain: normal oral sawyer PPD read on 03/26/17 showed 18 mm induration and erythema: patient stated that he had unspecified vaccination for TB in [facility] 30 years ago Respiratory Isolation F/U Sputum for AFB sent morning 03/30/17 Zosyn and Azithromycin Blood Culture 03/20/17 is negative to date Urine Culture 03/20/17 shows NO growth Throat Culture 03/20/17 is negative Mycobacterium Preliminary 03/23/17,03/24/17, 03/26/17, and 03/27/17 shows NO AFB. NO sputum was sent on 03/25/17. NO Fever overnight 03/29/17 through 03/30/[address] Thomas Pulmonology Dr. Lomas Patient to receive rib raising daily. 2). RUQ Pain NO evidence of gallbladder pathology on U/S See results of CT Abdomen/Pelvis in HPI above Surgery Team Dr. Castaneda: no surgical intervention at this time GI Dr. Lam/Claudette: no further workup at this time Hepatitis Panel is negative Likely musculoskeletal 3). RIGGINS NO longer having this and could have been linked to his coughing upon presentation CT Head was unremarkable 4). Constipation Colace He is moving his bowels 5). Elevated LFTs Monitor: they are normal on 03/30/17 Hepatitis Panel is negative Abdominal U/S did not show any evidence of Cholelithiasis/Cholecystitis and shows Fatty Infiltration of the Liver 6). Prophylaxis: Lovenox, Pepcid, Guaifensin, Promethazine/Codeine, Florastor <Kandy Gonzalez V - Last Filed: 04/01/17 19:31> Objective - Vital Signs/Intake and Output Vital Signs (last 24 hours): Temp Pulse Resp BP Pulse Ox 97.7 F 83 20 103/65 97 04/01/17 15:00 04/01/17 15:00 04/01/17 15:00 04/01/17 15:00 04/01/17 15:00 - Medications Medications: Current Medications Albuterol/Ipratropium (Duoneb 3 Mg/0.5 Mg (3 Ml) Ud) [address] Last Admin: 04/01/17 19:14 Dose: 3 ml Docusate Sodium (Colace) 100 mg PO BID [facility] Last Admin: 04/01/17 17:47 Dose: 100 mg Enoxaparin Sodium (Lovenox) 30 mg SC DAILY [facility] Last Admin: 04/01/17 11:00 Dose: 30 mg Famotidine (Pepcid) 20 mg PO BID [facility] Last Admin: 04/01/17 17:47 Dose: 20 mg Guaifenesin (Mucinex La) 600 mg PO BID [facility] Last Admin: 04/01/17 17:47 Dose: 600 mg Piperacillin Sod/Tazobactam (Sod 3.375 gm/ Sodium Chloride) 100 mls @ 200 mls/ hr IVPB Q6H [facility] Last Admin: 04/01/17 08:57 Dose: 200 mls/hr Azithromycin 500 mg/ Sodium (Chloride) 250 mls @ 250 mls/hr IVPB DAILY [facility] Last Admin: 04/01/17 11:19 Dose: 250 mls/hr Promethazine HCl/Codeine (Phenergan/Codeine Oral Syrup) 5 ml PO Q4 PRN PRN Reason: Cough Last Admin: 04/01/17 18:43 Dose: 5 ml Saccharomyces Boulardii (Florastor) [address] Last Admin: 04/01/17 17:47 Dose: 250 mg - Labs Labs: 04/01/17 07:11 04/01/17 07:11 PT 12.7 SECONDS (9.7-12.2) H 03/25/17 06:16 INR 1.1 03/25/17 06:16 APTT 28 SECONDS (21-34) 03/25/17 06:16 Attending/Attestation - Attestation I have personally seen and examined this patient.: Yes I have fully participated in the care of the patient.: Yes I have reviewed all pertinent clinical information, including history, physical exam and plan: Yes Notes (Text): Patient seen, examined and case discussed with day-time resident during morning rounds. Patient seen at bedside. patient reporting he is feeling much better. We are awaiting bronchial wash result for AFB Culture. Discussed with infectious disease, when this result comes back, will determine if needs to be on isolation or not, and treatment for possible latent TB therapy and will need follow-up in the [facility] when ready to be discharged. Assessment and Plan: 1). STEPHANIE Pneumonia * ID Dr. Thomas on board-->help appreciated * Pulmonology Dr. Lomas on board-->help appreciated * Quantiferon Gold is positive. Patient underwent Bronchoscopy with Dr. Lomas on 03/29/17. * Bronchial Wash 03/29/17 Culture and Smear: NORMAL Saprophytic Sawyer * Bronchial Wash 03/29/17 Fungus Culture showed NO Fungus on DAFNE Preparation * Bronchial Wash 03/29/17 Gram Stain is Negative * Bronchial Wash 03/29/17 AFB Culture is pending; No acid fast bacilli seen * Awaiting results of Bronchial Wash AFB cultures to determine course of treatment * PPD read on 03/26/17 showed 18 mm induration and erythema: patient stated that he had unspecified vaccination for TB in [facility] 30 years ago * Respiratory Isolation * Sputum : normal oral sawyer * Zosyn (since 03/20/17) and Azithromycin (since 03/22/17) * Blood Culture 03/20/17 is negative to date * Urine Culture 03/20/17 shows NO growth * Throat Culture 03/20/17 is negative * Mycobacterium Preliminary 03/23/17: negative X1 week,03/24/17 negative X 1 week, 03/26/17 pending, and 03/27/17, 03/28/17 shows NO AFB. Awaiting to hear back from ID Dr. Thomas concerning removal from respiratory isolation (Nurse Michael put a call out to him this morning 03/31/17). * Afebrile since 03/27/17 2). RUQ Pain * NO evidence of gallbladder pathology on U/S * See results of CT Abdomen/Pelvis in HPI above * Surgery Team Dr. Castaneda: no surgical intervention at this time * GI Dr. Lam/Claudette: no further workup at this time * Hepatitis Panel is negative * Likely musculoskeletal 3). RIGGINS * NO longer having this and could have been linked to his coughing upon presentation * CT Head was unremarkable 4). Constipation * Colace * He is moving his bowels 5). Elevated LFTs * Monitor: they are normal on 03/31/17 * Hepatitis Panel is negative * Abdominal U/S did not show any evidence of Cholelithiasis/Cholecystitis and shows Fatty Infiltration of the Liver 6). Prophylaxis: Lovenox, Pepcid, Guaifensin, Promethazine/Codeine, Florastor, Duoneb Disposition: * Will discuss with infectious disease regarding if patient is cleared from their perspective in retrospect to bronchial washings and prior workup * Patient has completed 11 days of IV Azithromycin and 12 days of IV Zosyn to cover for pneumonia; will discontinue.
[2017-04-01] MEDS: Saccharomyces Boulardi 250 mg Cap PO SCH ×2 (11:00→17:47)
[2017-04-01] MEDS: guaiFENesin 600 mg ER Tab PO SCH ×2 (11:00→17:47)
[2017-04-01] MEDS: Enoxaparin 30 mg Syringe SC SCH (11:00)
[2017-04-01] MEDS: Azithromycin 500 MG in Sodium Chloride 0.9% 250 ML IVPB SCH (11:19)
[2017-04-01] MEDS: Promethazine/Cod 6.25mg-10mg/5ml Syr UD PO PRN ×2 (18:43→23:00)
[2017-04-02 01:12] VITALS: O2SAT 96
[2017-04-02] MEDS: Albuterol-Ipratrop 3 mg / 0.5 (3 ml) UD INH SCH ×3 (01:13→13:16)
[2017-04-02 07:00] LABS: BASO # 0.3 K/uL (0.0-0.2); BASO % 2.7 % (0.0-2.0); EOS # 0.2 K/uL (0.0-0.7); EOS % 2.5 % (0.0-4.0); HEMATOCRIT 35.4 % (35.0-51.0); LYMPH # 1.9 K/uL (1.0-4.3); LYMPH % 20.3 % (20.0-40.0); MEAN CELL VOLUME 84.9 fL (80.0-94.0); MEAN CORPUSCULAR HEMOGLOBIN 29.4 pg (27.0-31.0); MEAN CORPUSCULAR HGB CONC 34.6 g/dL (33.0-37.0); MEAN PLATELET VOLUME 8.3 fL (7.2-11.7); MONO # 1.1 K/uL (0.0-0.8); MONO % 11.9 % (0.0-10.0); RED CELL DISTRIBUTION WIDTH 13.6 % (11.5-14.5); WHITE BLOOD COUNT 9.4 K/uL (4.8-10.8)
[2017-04-02 07:26] LABS: CHLORIDE 102 mmol/L (98-107); POTASSIUM 4.1 mmol/L (3.6-5.2); SODIUM 140 mmol/L (132-148)
[2017-04-02 07:28] LABS: ALKALINE PHOSPHATASE 91 U/L (38-126); ALT/SGPT 52 U/L (21-72); AST/SGOT 28 U/L (17-59); BILIRUBIN,TOTAL 0.7 mg/dL (0.2-1.3); BLOOD UREA NITROGEN 8 mg/dL (9-20); CARBON DIOXIDE 26 mmol/L (22-30); GFR AFRICAN-AMERICAN > 60; TOTAL PROTEIN 7.3 g/dL (6.3-8.3)
[2017-04-02 07:29] LABS: GLUCOSE,RANDOM 93 mg/dL (75-110); MAGNESIUM 2.1 mg/dL (1.6-2.3); PHOSPHOROUS 3.9 mg/dL (2.5-4.5)
[2017-04-02 08:28] VITALS: BP 105/68; PULSE 80; RESP 18; TEMP 98.3
--- NOTE | 2017-04-02 10:29 | CP.PCM.PN ---
Subjective - Date & Time of Evaluation Date of Evaluation: 04/02/17 Time of Evaluation: 10:26 - Subjective Subjective: Patient seen and examined at bedside. Patient doing well with no new complaints at this time. Patient still having pain over left scapular area. Pt denies F/C, CP/SOB, N/V/D. Objective - Vital Signs/Intake and Output Vital Signs (last 24 hours): Temp Pulse Resp BP Pulse Ox 98.3 F 80 18 105/68 96 04/02/17 07:50 04/02/17 07:50 04/02/17 07:50 04/02/17 07:50 04/02/17 07:50 Intake and Output: 04/02/17 04/02/17 06:59 18:59 Intake Total 420 Balance 420 - Medications Medications: Current Medications Albuterol/Ipratropium (Duoneb 3 Mg/0.5 Mg (3 Ml) Ud) 3 ml INH RQ6 [facility] Last Admin: 04/02/17 07:15 Dose: 3 ml Docusate Sodium (Colace) 100 mg PO BID [facility] Last Admin: 04/01/17 17:47 Dose: 100 mg Enoxaparin Sodium (Lovenox) 30 mg SC DAILY [facility] Last Admin: 04/01/17 11:00 Dose: 30 mg Famotidine (Pepcid) 20 mg PO BID [facility] Last Admin: 04/01/17 17:47 Dose: 20 mg Guaifenesin (Mucinex La) 600 mg PO BID [facility] Last Admin: 04/01/17 17:47 Dose: 600 mg Promethazine HCl/Codeine (Phenergan/Codeine Oral Syrup) 5 ml PO Q4 PRN PRN Reason: Cough Last Admin: 04/01/17 23:00 Dose: 5 ml Saccharomyces Boulardii (Florastor) 250 mg PO BID [facility] Last Admin: 04/01/17 17:47 Dose: 250 mg - Labs Labs: 04/02/17 06:45 04/02/17 06:45 PT 12.7 SECONDS (9.7-12.2) H 03/25/17 06:16 INR 1.1 03/25/17 06:16 APTT 28 SECONDS (21-34) 03/25/17 06:16 - Constitutional Appears: Non-toxic, No Acute Distress - Head Exam Head Exam: ATRAUMATIC, NORMAL INSPECTION, NORMOCEPHALIC - Eye Exam Eye Exam: EOMI - ENT Exam ENT Exam: Mucous Membranes Moist - Respiratory Exam Respiratory Exam: Wheezes (Left upper lobe ), NORMAL BREATHING PATTERN. absent : Accessory Muscle Use, Rhonchi, Respiratory Distress, Stridor - Cardiovascular Exam Cardiovascular Exam: REGULAR RHYTHM, +S1, +S2. absent: Murmur - GI/Abdominal Exam GI & Abdominal Exam: Soft, Normal Bowel Sounds. absent: Distended, Tenderness - Extremities Exam Extremities Exam: Normal Inspection. absent: Pedal Edema, Tenderness - Back Exam Back Exam: NORMAL INSPECTION - Neurological Exam Neurological Exam: Alert, Awake - Psychiatric Exam Psychiatric exam: Normal Affect, Normal Mood - Skin Skin Exam: Dry, Intact, Normal Color, Warm
[2017-04-02] MEDS: Saccharomyces Boulardi 250 mg Cap PO SCH (10:32)
[2017-04-02] MEDS: Enoxaparin 30 mg Syringe SC SCH (10:32)
[2017-04-02] MEDS: guaiFENesin 600 mg ER Tab PO SCH (10:32)
[2017-04-02] MEDS: Promethazine/Cod 6.25mg-10mg/5ml Syr UD PO PRN (14:47)
--- NOTE | 2017-04-02 18:22 | CP.PCM.DIS ---
<Lisa Shipman - Last Filed: 04/02/17 18:10> Provider - Provider Date of Admission: 03/20/17 02:40 Attending physician: Adolfo Solo MD Consults: Dr. Carole Lomas Time Spent in preparation of Discharge (in minutes): 35 Diagnosis - Discharge Diagnosis (1) Constipation Status: Acute Comment: Please see summary for details. (2) Pneumonia Status: Acute Comment: Please see summary for details. (3) RUQ pain Status: Acute Comment: Please see summary for details. Hospital Course - Lab Results Lab Results: Micro Results 03/29/17 16:30 Lung Fungal Culture - Final Russ Albicans 03/30/17 09:20 Sputum Gram Stain - Final 03/30/17 09:20 Sputum Sputum Culture - Final NORMAL ORAL SAWYER 03/24/17 09:11 Other: Please Indicate Mycobacterial Culture - Preliminary 03/23/17 14:30 Other: Please Indicate Mycobacterial Culture - Preliminary 03/29/17 07:31 Other: Please Indicate Mycobacterial Culture - Preliminary 03/29/17 16:30 Bronchial Washings Gram Stain - Final 03/29/17 16:30 Bronchial Washings Bronchial Culture - Final NORMAL SAPROPHYTIC SAWYER 03/28/17 20:31 Other: Please Indicate Mycobacterial Culture - Preliminary 03/27/17 08:00 Other: Please Indicate Mycobacterial Culture - Preliminary 03/26/17 09:45 Other: Please Indicate Mycobacterial Culture - Preliminary 03/23/17 10:30 Blood Blood Culture - Final NO GROWTH AFTER 5 DAYS 03/23/17 10:30 Blood Gram Stain - Final TEST NOT PERFORMED 03/23/17 11:05 Blood Blood Culture - Final NO GROWTH AFTER 5 DAYS 03/23/17 11:05 Blood Gram Stain - Final TEST NOT PERFORMED 03/20/17 09:03 Throat Group A Strep Throat Culture - Final NO BETA STREP GROUP A ISOLATED. 03/20/17 09:03 Urine,Clean Catch Urine Culture - Final No Growth (<1,000 CFU/ML) Most Recent Lab Values WBC 9.4 K/uL (4.8-10.8) 04/02/17 06:45 RBC 4.17 Mil/uL (4.40-5.90) L 04/02/17 06:45 Hgb 12.2 g/dL (12.0-18.0) 04/02/17 06:45 Hct 35.4 % (35.0-51.0) 04/02/17 06:45 MCV 84.9 fL (80.0-94.0) 04/02/17 06:45 MCH 29.4 pg (27.0-31.0) 04/02/17 06:45 MCHC 34.6 g/dL (33.0-37.0) 04/02/17 06:45 RDW 13.6 % (11.5-14.5) 04/02/17 06:45 Plt Count 555 K/uL (130-400) H 04/02/17 06:45 MPV 8.3 fL (7.2-11.7) 04/02/17 06:45 Neut % (Auto) 62.6 % (50.0-75.0) 04/02/17 06:45 Lymph % (Auto) 20.3 % (20.0-40.0) 04/02/17 06:45 [place] % (Auto) 11.9 % (0.0-10.0) H 04/02/17 06:45 Eos % (Auto) 2.5 % (0.0-4.0) 04/02/17 06:45 Baso % (Auto) 2.7 % (0.0-2.0) H 04/02/17 06:45 Neut # 5.9 K/uL (1.8-7.0) 04/02/17 06:45 Lymph # 1.9 K/uL (1.0-4.3) 04/02/17 06:45 [place] # 1.1 K/uL (0.0-0.8) H 04/02/17 06:45 Eos # 0.2 K/uL (0.0-0.7) 04/02/17 06:45 Baso # 0.3 K/uL (0.0-0.2) H 04/02/17 06:45 Neutrophils % (Manual) 87 % (50-75) H 03/20/17 00:43 Lymphocytes % (Manual) 5 % (20-40) L 03/20/17 00:43 Reactive Lymphs % 1 % (0-0) H 03/20/17 00:43 Monocytes % (Manual) 7 % (0-10) 03/20/17 00:43 Platelet Estimate Normal (NORMAL) 03/20/17 00:43 RBC Morphology Normal 03/20/17 00:43 ESR 88 mm/hr (0-15) H 03/25/17 06:16 PT 12.7 SECONDS (9.7-12.2) H 03/25/17 06:16 INR 1.1 03/25/17 06:16 APTT 28 SECONDS (21-34) 03/25/17 06:16 pO2 50 mm/Hg (30-55) 03/20/17 03:00 VBG pH 7.39 (7.32-7.43) 03/20/17 03:00 VBG pCO2 33 mmHg (40-60) L 03/20/17 03:00 VBG HCO3 21.4 mmol/L 03/20/17 03:00 VBG Total CO2 21.0 mmol/L (22-28) L 03/20/17 03:00 VBG O2 Sat (Calc) 91.6 % (40-65) H 03/20/17 03:00 VBG Base Excess -4.1 mmol/L (0.0-2.0) L 03/20/17 03:00 VBG Potassium 3.4 mmol/L (3.6-5.2) L 03/20/17 03:00 Sodium 138.0 mmol/l (132-148) 03/20/17 03:00 Chloride 110.0 mmol/L (98-107) H 03/20/17 03:00 Glucose 116 mg/dl (75-110) H 03/20/17 03:00 Lactate 0.7 mmol/L (0.7-2.1) 03/20/17 03:00 Sodium 140 mmol/L (132-148) 04/02/17 06:45 Potassium 4.1 mmol/L (3.6-5.2) 04/02/17 06:45 Chloride 102 mmol/L (98-107) 04/02/17 06:45 Carbon Dioxide 26 mmol/L (22-30) 04/02/17 06:45 Anion Gap 16 (10-20) 04/02/17 06:45 BUN 8 mg/dL (9-20) L 04/02/17 06:45 Creatinine 0.8 MG/DL (0.8-1.5) 04/02/17 06:45 Est GFR ( Amer) > 60 04/02/17 06:45 Est GFR (Non-Af Amer) > 60 04/02/17 06:45 Random Glucose 93 mg/dL (75-110) 04/02/17 06:45 Calcium 9.0 mg/dl (8.6-10.4) 04/02/17 06:45 Phosphorus 3.9 mg/dL (2.5-4.5) 04/02/17 06:45 Magnesium 2.1 mg/dL (1.6-2.3) 04/02/17 06:45 Total Bilirubin 0.7 mg/dL (0.2-1.3) 04/02/17 06:45 AST 28 U/L (17-59) 04/02/17 06:45 ALT 52 U/L (21-72) 04/02/17 06:45 Alkaline Phosphatase 91 U/L (38-126) 04/02/17 06:45 Troponin I < 0.0120 ng/mL (0.00-0.120) 03/20/17 00:43 Total Protein 7.3 g/dL (6.3-8.3) 04/02/17 06:45 Albumin 3.6 g/dL (3.5-5.0) 04/02/17 06:45 Globulin 3.7 gm/dL (2.2-3.9) 04/02/17 06:45 Albumin/Globulin Ratio 1.0 (1.0-2.1) 04/02/17 06:45 Lipase 58 U/L (23-300) 03/20/17 00:43 Procalcitonin 0.05 NG/ML (0.19-0.49) L 03/25/17 06:16 TSH 3rd Generation 2.36 mIU/L (0.46-4.68) 03/20/17 01:05 Venous Blood Potassium 3.4 mmol/L (3.6-5.2) L 03/20/17 03:00 Urine Color Gely (YELLOW) 03/20/17 00:43 Urine Clarity Hazy (Clear) 03/20/17 00:43 Urine pH 7.0 (5.0-8.0) 03/20/17 00:43 Ur Specific [place] 1.023 (1.003-1.030) 03/20/17 00:43 Urine Protein 2+ mg/dL (NEGATIVE) H 03/20/17 00:43 Urine Glucose (UA) Normal mg/dL (Normal) 03/20/17 00:43 Urine Ketones Negative mg/dL (NEGATIVE) 03/20/17 00:43 Urine Blood Negative (NEGATIVE) 03/20/17 00:43 Urine Nitrate Negative (NEGATIVE) 03/20/17 00:43 Urine Bilirubin Negative (NEGATIVE) 03/20/17 00:43 Urine Urobilinogen 4.0 mg/dL (0.2-1.0) 03/20/17 00:43 Ur Leukocyte Esterase Neg Neville/uL (Negative) 03/20/17 00:43 Urine WBC (Auto) 1 /hpf (0-5) 03/20/17 00:43 Urine RBC (Auto) 4 /hpf (0-3) H 03/20/17 00:43 Amorphous Sediment Occ /ul (<OCC) H 03/20/17 00:43 Hepatitis A IgM Ab Negative (NEGATIVE) 03/21/17 16:27 Hep Bs Antigen Negative (NEGATIVE) 03/21/17 16:27 Hep B Core IgM Ab Negative (NEGATIVE) 03/21/17 16:27 Hepatitis C Antibody Negative (NEGATIVE) 03/21/17 16:27 HIV 1&2 Antibody Screen Negative (NEGATIVE) 03/20/17 20:46 Influenza Typ A,B (EIA) Negative for flu a/b (NEGATIVE) 03/20/17 00:43 Ur L.pneumophila Ag Negative (NEGATIVE) 03/21/17 11:39 Mycoplasma pneumon IgG 3.35 (<=0.90) H 03/22/17 07:05 Mycoplasma pneumon IgM 67 U/mL (<770) 03/22/17 07:05 Grp A Beta Strep Ag Negative (NEGATIVE) 03/20/17 01:05 TB Test (QFT) Nil 0.28 IU/mL 03/23/17 09:04 TB Test Mitogen - Nil 0.76 IU/mL 03/23/17 09:04 TB Test TB - Nil 5.42 IU/mL 03/23/17 09:04 TB Test (QFT) Positive (Negative) H 03/23/17 09:04 - Hospital Course Hospital Course: Upon Admission: Patient is a 46 year old male with no past medical history who presents to the ED with complaints of myalgia, subject fever, non-productive cough, palpitations , B/L eye lid pain and neck pain that started on Saturday. Patient states that he went to the clinic and was given Tamiflu and Augumentin, however, patient's symptoms continued with worsening palpitation symptoms. Patient admits to fever , chills, diaphoresis, improving palpitation (currently), frontal headache, nasal congestion, dizziness, nausea and vomiting (x2) but denies chest pain, SOB, abdominal pain, diarrhea and sick contact. Hospital Course: Patient was admitted for suspected pneumonia. He was given Augmentin and Tamiflu with no improvement. The patient received a CXR that day which showed left upper lobe pneumonia as well as an EKG which showed sinus tachycardia and mild lateral ST depression. Patient began c/o headache. Head CT completed on showed no acute intracranial pathology. Patient started having RUQ pain on physical exam and became distended. Surgery (Dr. Castaneda) was consulted and ordered a STAT Ultrasound and CT as well as pain control and antibiotics. An abdominal ultrasound completed that day showed no evidence of cholelithiasis or cholecystitis but reported fatty infiltration of the liver. Chest/Abdomen/ Pelvis CT w/ IV & PO contrast showed numerous calcified right hilar lymph nodes , subcarinal soft tissue measuring maximally 4.3 x 3.1cm, extensive left upper lobe consolidation, small efhu-[id number]-[id number]-right pleural effusions, hypoattenuation of the liver, moderate constipation, and small bowel wall thickening. Infectious disease (Dr. Thomas) was consulted and recommended IV antibiotics. GI (Dr. Lam) was consulted for the patients complaint of abdominal pain and concluded it must be musculoskeletal pain. Given results of the Abdominal CT, TB was susupected and tested for. Pulmonology (Dr. Lomas) was consulted on 03/24/17 and recommended to proceed with bronchoscopy to r/o active TB after the quantiferon gold results were in. Quantiferon gold was found to be positive. PPD read on 03/26/17 showed 18mm induration and erythema and the patient reported having been vaccinated for TB in [facility] 30 years ago. Repeat CXR on 03/27/17 showed increasing dense left upper lobe infiltrate unchanged with an underlying lesion not completely excluded through a large distribution of the left upper lobe from the apex to the hilar region and minimal linear atelectasis in the inferior right lung zone. Repeat CXR on 03/29/17 showed persistent left apical/upper lobe opacity with vague lower lobe opacity. On 03/29/17, the patient underwent a flexible bronchoscopy with intraoperative fluoroscopy and washing. Two specimens were taken as well as cultures for C/S and AFB. The bronchial wash culture and smear showed normal saprophytic sawyer, russ albicans, and a gram stain suggestive of normal oral sawyer. Patient denied any post-operative SOB or chest pain and no oral bleeding was noted. Upon discharge: Patient stable for discharge per Dr. Gonzalez. Patient was instructed to f/u with chest clinic on at 9 am. Please note that this is a summary of events. For more detail, please refer to complete medical record. - Date & Time of H&P Date of H&P: 03/20/17 Time of H&P: 09:58 Discharge Exam - Head Exam Head Exam: ATRAUMATIC, NORMAL INSPECTION, NORMOCEPHALIC - Eye Exam Eye Exam: EOMI - ENT Exam ENT Exam: Mucous Membranes Moist - Respiratory Exam Respiratory Exam: Wheezes (Left Upper Lobe ), NORMAL BREATHING PATTERN. absent : Rales, Rhonchi, Respiratory Distress - Cardiovascular Exam Cardiovascular Exam: REGULAR RHYTHM, +S1, +S2 - GI/Abdominal Exam GI & Abdominal Exam: Normal Bowel Sounds, Soft. absent: Distended, Tenderness - Extremities Exam Extremities exam: normal inspection - Neurological Exam Neurological exam: Alert, Oriented x3 - Psychiatric Exam Psychiatric exam: Normal Affect, Normal Mood - Skin Skin Exam: Dry, Intact, Normal Color, Warm Discharge Plan - Follow Up Plan Condition: GUARDED Disposition: HOME/ ROUTINE Instructions: Heart Healthy Diet (DC), Sepsis (GEN), Pneumonia (DC) Additional Instructions: FOLLOW UP WITH CHEST CLINIC ON AT 9AM. [facility] T[facility]# [phone] PLEASE BRING CD OF CHEST XRAY. FOLLOW UP WITH [facility] IN A WEEK. TEL# [phone] Referrals: Mercedes Heller APN [Advanced Practice Nurse] - [facility],Med Surg [Non-Staff] - <Kandy Gonzalez V - Last Filed: 04/02/17 22:21> Provider - Provider Date of Admission: 03/20/17 02:40 Attending physician: Adolfo Solo MD Hospital Course - Lab Results Lab Results: Micro Results 03/29/17 16:30 Lung Fungal Culture - Final Russ Albicans 03/30/17 09:20 Sputum Gram Stain - Final 03/30/17 09:20 Sputum Sputum Culture - Final NORMAL ORAL SAWYER 03/24/17 09:11 Other: Please Indicate Mycobacterial Culture - Preliminary 03/23/17 14:30 Other: Please Indicate Mycobacterial Culture - Preliminary 03/29/17 07:31 Other: Please Indicate Mycobacterial Culture - Preliminary 03/29/17 16:30 Bronchial Washings Gram Stain - Final 03/29/17 16:30 Bronchial Washings Bronchial Culture - Final NORMAL SAPROPHYTIC SAWYER 03/28/17 20:31 Other: Please Indicate Mycobacterial Culture - Preliminary 03/27/17 08:00 Other: Please Indicate Mycobacterial Culture - Preliminary 03/26/17 09:45 Other: Please Indicate Mycobacterial Culture - Preliminary 03/23/17 10:30 Blood Blood Culture - Final NO GROWTH AFTER 5 DAYS 03/23/17 10:30 Blood Gram Stain - Final TEST NOT PERFORMED 03/23/17 11:05 Blood Blood Culture - Final NO GROWTH AFTER 5 DAYS 03/23/17 11:05 Blood Gram Stain - Final TEST NOT PERFORMED 03/20/17 09:03 Throat Group A Strep Throat Culture - Final NO BETA STREP GROUP A ISOLATED. 03/20/17 09:03 Urine,Clean Catch Urine Culture - Final No Growth (<1,000 CFU/ML) Most Recent Lab Values WBC 9.4 K/uL (4.8-10.8) 04/02/17 06:45 RBC 4.17 Mil/uL (4.40-5.90) L 04/02/17 06:45 Hgb 12.2 g/dL (12.0-18.0) 04/02/17 06:45 Hct 35.4 % (35.0-51.0) 04/02/17 06:45 MCV 84.9 fL (80.0-94.0) 04/02/17 06:45 MCH 29.4 pg (27.0-31.0) 04/02/17 06:45 MCHC 34.6 g/dL (33.0-37.0) 04/02/17 06:45 RDW 13.6 % (11.5-14.5) 04/02/17 06:45 Plt Count 555 K/uL (130-400) H 04/02/17 06:45 MPV 8.3 fL (7.2-11.7) 04/02/17 06:45 Neut % (Auto) 62.6 % (50.0-75.0) 04/02/17 06:45 Lymph % (Auto) 20.3 % (20.0-40.0) 04/02/17 06:45 [place] % (Auto) 11.9 % (0.0-10.0) H 04/02/17 06:45 Eos % (Auto) 2.5 % (0.0-4.0) 04/02/17 06:45 Baso % (Auto) 2.7 % (0.0-2.0) H 04/02/17 06:45 Neut # 5.9 K/uL (1.8-7.0) 04/02/17 06:45 Lymph # 1.9 K/uL (1.0-4.3) 04/02/17 06:45 [place] # 1.1 K/uL (0.0-0.8) H 04/02/17 06:45 Eos # 0.2 K/uL (0.0-0.7) 04/02/17 06:45 Baso # 0.3 K/uL (0.0-0.2) H 04/02/17 06:45 Neutrophils % (Manual) 87 % (50-75) H 03/20/17 00:43 Lymphocytes % (Manual) 5 % (20-40) L 03/20/17 00:43 Reactive Lymphs % 1 % (0-0) H 03/20/17 00:43 Monocytes % (Manual) 7 % (0-10) 03/20/17 00:43 Platelet Estimate Normal (NORMAL) 03/20/17 00:43 RBC Morphology Normal 03/20/17 00:43 ESR 88 mm/hr (0-15) H 03/25/17 06:16 PT 12.7 SECONDS (9.7-12.2) H 03/25/17 06:16 INR 1.1 03/25/17 06:16 APTT 28 SECONDS (21-34) 03/25/17 06:16 pO2 50 mm/Hg (30-55) 03/20/17 03:00 VBG pH 7.39 (7.32-7.43) 03/20/17 03:00 VBG pCO2 33 mmHg (40-60) L 03/20/17 03:00 VBG HCO3 21.4 mmol/L 03/20/17 03:00 VBG Total CO2 21.0 mmol/L (22-28) L 03/20/17 03:00 VBG O2 Sat (Calc) 91.6 % (40-65) H 03/20/17 03:00 VBG Base Excess -4.1 mmol/L (0.0-2.0) L 03/20/17 03:00 VBG Potassium 3.4 mmol/L (3.6-5.2) L 03/20/17 03:00 Sodium 138.0 mmol/l (132-148) 03/20/17 03:00 Chloride 110.0 mmol/L (98-107) H 03/20/17 03:00 Glucose 116 mg/dl (75-110) H 03/20/17 03:00 Lactate 0.7 mmol/L (0.7-2.1) 03/20/17 03:00 Sodium 140 mmol/L (132-148) 04/02/17 06:45 Potassium 4.1 mmol/L (3.6-5.2) 04/02/17 06:45 Chloride 102 mmol/L (98-107) 04/02/17 06:45 Carbon Dioxide 26 mmol/L (22-30) 04/02/17 06:45 Anion Gap 16 (10-20) 04/02/17 06:45 BUN 8 mg/dL (9-20) L 04/02/17 06:45 Creatinine 0.8 MG/DL (0.8-1.5) 04/02/17 06:45 Est GFR ( Amer) > 60 04/02/17 06:45 Est GFR (Non-Af Amer) > 60 04/02/17 06:45 Random Glucose 93 mg/dL (75-110) 04/02/17 06:45 Calcium 9.0 mg/dl (8.6-10.4) 04/02/17 06:45 Phosphorus 3.9 mg/dL (2.5-4.5) 04/02/17 06:45 Magnesium 2.1 mg/dL (1.6-2.3) 04/02/17 06:45 Total Bilirubin 0.7 mg/dL (0.2-1.3) 04/02/17 06:45 AST 28 U/L (17-59) 04/02/17 06:45 ALT 52 U/L (21-72) 04/02/17 06:45 Alkaline Phosphatase 91 U/L (38-126) 04/02/17 06:45 Troponin I < 0.0120 ng/mL (0.00-0.120) 03/20/17 00:43 Total Protein 7.3 g/dL (6.3-8.3) 04/02/17 06:45 Albumin 3.6 g/dL (3.5-5.0) 04/02/17 06:45 Globulin 3.7 gm/dL (2.2-3.9) 04/02/17 06:45 Albumin/Globulin Ratio 1.0 (1.0-2.1) 04/02/17 06:45 Lipase 58 U/L (23-300) 03/20/17 00:43 Procalcitonin 0.05 NG/ML (0.19-0.49) L 03/25/17 06:16 TSH 3rd Generation 2.36 mIU/L (0.46-4.68) 03/20/17 01:05 Venous Blood Potassium 3.4 mmol/L (3.6-5.2) L 03/20/17 03:00 Urine Color Gely (YELLOW) 03/20/17 00:43 Urine Clarity Hazy (Clear) 03/20/17 00:43 Urine pH 7.0 (5.0-8.0) 03/20/17 00:43 Ur Specific [place] 1.023 (1.003-1.030) 03/20/17 00:43 Urine Protein 2+ mg/dL (NEGATIVE) H 03/20/17 00:43 Urine Glucose (UA) Normal mg/dL (Normal) 03/20/17 00:43 Urine Ketones Negative mg/dL (NEGATIVE) 03/20/17 00:43 Urine Blood Negative (NEGATIVE) 03/20/17 00:43 Urine Nitrate Negative (NEGATIVE) 03/20/17 00:43 Urine Bilirubin Negative (NEGATIVE) 03/20/17 00:43 Urine Urobilinogen 4.0 mg/dL (0.2-1.0) 03/20/17 00:43 Ur Leukocyte Esterase Neg Neville/uL (Negative) 03/20/17 00:43 Urine WBC (Auto) 1 /hpf (0-5) 03/20/17 00:43 Urine RBC (Auto) 4 /hpf (0-3) H 03/20/17 00:43 Amorphous Sediment Occ /ul (<OCC) H 03/20/17 00:43 Hepatitis A IgM Ab Negative (NEGATIVE) 03/21/17 16:27 Hep Bs Antigen Negative (NEGATIVE) 03/21/17 16:27 Hep B Core IgM Ab Negative (NEGATIVE) 03/21/17 16:27 Hepatitis C Antibody Negative (NEGATIVE) 03/21/17 16:27 HIV 1&2 Antibody Screen Negative (NEGATIVE) 03/20/17 20:46 Influenza Typ A,B (EIA) Negative for flu a/b (NEGATIVE) 03/20/17 00:43 Ur L.pneumophila Ag Negative (NEGATIVE) 03/21/17 11:39 Mycoplasma pneumon IgG 3.35 (<=0.90) H 03/22/17 07:05 Mycoplasma pneumon IgM 67 U/mL (<770) 03/22/17 07:05 Grp A Beta Strep Ag Negative (NEGATIVE) 03/20/17 01:05 TB Test (QFT) Nil 0.28 IU/mL 03/23/17 09:04 TB Test Mitogen - Nil 0.76 IU/mL 03/23/17 09:04 TB Test TB - Nil 5.42 IU/mL 03/23/17 09:04 TB Test (QFT) Positive (Negative) H 03/23/17 09:04 Attending/Attestation - Attestation I have personally seen and examined this patient.: Yes I have fully participated in the care of the patient.: Yes I have reviewed all pertinent clinical information, including history, physical exam and plan: Yes Notes (Text): Patient seen, examined and case discussed with day-time resident during morning rounds. Patient seen at bedside. patient reporting he is feeling much better. Discussed with ID Dr. Thomas, d/c isolation, and bronchoscopy AFB stain is negative in addition to sputum AFB are all negative. Recommended patient to follow-up at the chest clinic for treatment of latent tuberculosis. Discussed with case management, patient is setup for chest clinic post- hospitalization, CD of chest xray provided to the clinic, for treatment of latent tuberculosis. Discussed with ID, no further IV abx or PO Abx upon discharge. Stable from their prespective for discharge. Patient recommended to establish care at the [facility] ([phone]) upon discharge from hospital. Discussed with patient plan in detail, verbalized understands and agrees. This is a brief summary of patient's hospitalization. Please see EMR for further details. Discharge Diagnoses: 1). STEPHANIE Pneumonia * ID Dr. Thomas on board-->help appreciated * Pulmonology Dr. Lomas on board-->help appreciated * Quantiferon Gold is positive. Patient underwent Bronchoscopy with Dr. Lomas on 03/29/17. * Bronchial Wash 03/29/17 Culture and Smear: NORMAL Saprophytic Sawyer * Bronchial Wash 03/29/17 Fungus Culture showed NO Fungus on DAFNE Preparation * Bronchial Wash 03/29/17 Gram Stain is Negative * Bronchial Wash 03/29/17 AFB Culture is pending; No acid fast bacilli seen * Awaiting results of Bronchial Wash AFB cultures to determine course of treatment * PPD read on 03/26/17 showed 18 mm induration and erythema: patient stated that he had unspecified vaccination for TB in [facility] 30 years ago * Respiratory Isolation * Sputum : normal oral sawyer * Zosyn (since 03/20/17) and Azithromycin (since 03/22/17) * Blood Culture 03/20/17 is negative to date * Urine Culture 03/20/17 shows NO growth * Throat Culture 03/20/17 is negative * Mycobacterium Preliminary 03/23/17: negative X1 week,03/24/17 negative X 1 week, 03/26/17 pending, and 03/27/17, 03/28/17 shows NO AFB. Awaiting to hear back from ID Dr. Thomas concerning removal from respiratory isolation (Nurse Michael put a call out to him this morning 03/31/17). * Afebrile since 03/27/17 2). RUQ Pain * NO evidence of gallbladder pathology on U/S * See results of CT Abdomen/Pelvis in HPI above * Surgery Team Dr. Castaneda: no surgical intervention at this time * GI Dr. Lam/Claudette: no further workup at this time * Hepatitis Panel is negative * Likely musculoskeletal 3). RIGGINS * NO longer having this and could have been linked to his coughing upon presentation * CT Head was unremarkable 4). Constipation * Colace * He is moving his bowels 5). Elevated LFTs * Monitor: they are normal on 03/31/17 * Hepatitis Panel is negative * Abdominal U/S did not show any evidence of Cholelithiasis/Cholecystitis and shows Fatty Infiltration of the Liver 6). Prophylaxis: Lovenox, Pepcid, Guaifensin, Promethazine/Codeine, Florastor, Duoneb
--- NOTE | 2017-04-23 17:38 | PCM.OP ---
Operative Report - Operative Report Date of Surgery/Procedure: 03/29/17 Time of Surgery/Procedure: 10:00 Surgeon: nichelle damon Anesthesia/Sedation: as per anesthesia Pre-Operative Diagnosis: pneumonia Post-Operative Diagnosis: pneumonia Indication for Surgery: suspected tb Operative Findings: normal airways Procedure/Operation Description: fob via right nare, with washings, brushings and biopsy left upper lobe Estimated Blood Loss: none Blood Replaced: none Complications: none Specimen: afb, fungus, c&s, cytology, pathology Discharge & Condition: stable, no ptx post proceedure
== END 2017-04-02 17:41 | disposition home or self-care (01) | DRG 90 ==
LOC: SUPCPDRO 23:54 → C.ER 23:54 → C.9E 03-20 02:40 → C.6T 03-20 02:56
PROVIDERS: ADMIT Hospitalist; ATTEND Family Medicine
PROC: 0BB88ZX Excision of Left Upper Lobe Bronchus, Via Natural or Artificial Opening Endoscopic, Diagnostic (ICD-10-PCS; principal; 2017-03-29 09:30)
DX: J18.9 Pneumonia, unspecified organism (principal); K76.0 Fatty (change of) liver, not elsewhere classified; M79.1 Myalgia; J45.909 Unspecified asthma, uncomplicated; K59.00 Constipation, unspecified; R76.11 Nonspecific reaction to tuberculin skin test without active tuberculosis; Z78.9 Other specified health status; R51 Headache

== ENCOUNTER 2017-04-09 12:47 | Emergency (ER) | payer SELFPAY | END 2017-04-09 12:54 | disposition left against medical advice (07) | LOC: C.ER 12:47 | DX: Z04.8 Encounter for examination and observation for other specified reasons (principal); Z02.9 Encounter for administrative examinations, unspecified ==